=== PATIENT | male | born 1930 | race Caucasian/White ===

== ENCOUNTER 2016-09-18 23:17 | Inpatient (IN) | payer OTHER, MEDICARE ==
[~2016-09-18] VITALS: Ht 182.9 cm; Wt 107.9 kg
[~2016-09-18 23:17] MED LIST: AMLO5 PO; ASPI81 PO; CLOP75 PO; ENAL20TA PO; FERR324T4 PO; FURO1TAB93 PO; IMDU30TA PO; LANTINJ SQ; LEVO50TA4 PO; METO25 PO; SIMV20 PO; SODI325T PO; TAB-TAB PO; VITA20002 PO
[2016-09-18 23:18] VITALS: BP 142/79; PULSE 94; RESP 20; TEMP 97.8; O2SAT 90
[2016-09-18 23:41] VITALS: BP 141/71; PULSE 90; RESP 30; O2SAT 90
--- NOTE | 2016-09-18 23:51 | PD ---
HPI Chief Complaint: Respiratory Symptoms Time Seen by Provider: 23:51 Travel History International Travel<30 days: No Contact w/Intl Traveler<30days: No Traveled to known affect area: No History of Present Illness HPI 86-year-old male came to the emergency room with history of shortness of breath. His grandson brought him in. Patient was hypoxic in the triage. He has history of congestive heart failure, coronary artery disease, chronic kidney disease, single kidney. Patient says he's also been having chest pain. Symptoms have been going on for past 2 days. He was talking and able to answer questions appropriately. He did appear to be in moderate distress. [facility] Past Medical History Narrative Medical List of his past medical history reviewed from the nursing note. Hx Anticoagulant Therapy: Yes (PLAVIX) Arthritis: Yes Asthma: No Heart Rhythm Problems: No Cancer: Yes (RENAL) Cardiac Catheterization: Yes Cardiovascular Problems: Yes (5 VESSEL BYPASS, HTN) High Cholesterol: Yes Chemotherapy: No (TOOK KIDNEY OUT) Chest Pain: Yes Congestive Heart Failure: Yes COPD: No Cerebrovascular Accident: Yes Diabetes: Yes Gastrointestinal Disorders: Yes (KIDNEY REMOVED, ONLY ONE KIDNEY) GERD: No Genitourinary: No Headaches: No Hepatitis: No Hiatal Hernia: Yes Hypertension: Yes Kidney Stones: Yes Musculoskeletal: No Neurologic: No Reproductive: No Respiratory: No Migraines: No Myocardial Infarction: Yes Renal Failure: Yes Seizures: No Sleep Apnea: No Ulcer: No Past Surgical History Abdominal Surgery: No Appendectomy: No Cardiac Surgery: Yes Cholecystectomy: No Coronary Artery Bypass Graft: Yes (QUAD) Ear Surgery: No Endocrine Surgery: No Eye Surgery: Yes (BLIND RIGHT EYE) Genitourinary Surgery: Yes (LEFT NEPHRECTOMY) Gynecologic Surgery: No Oral Surgery: No Thoracic Surgery: No Other Surgery: Yes Social History Alcohol Use: No Tobacco Use: No Substance Use: No Allergies-Medications (Allergen,Severity, Reaction): Coded Allergies: No Known Allergies (Verified , 01/01/16) Comments No known drug allergies. Reported Meds & Prescriptions Reported Meds & Active Scripts Active Reported D3 2000 (Cholecalciferol) 2,000 Unit Tab Iron (Ferrous Sulfate) 325 Mg Tab 325 Mg PO DAILY Take Enalapril (Enalapril Maleate) 20 Mg Tab 20 Mg PO DAILY Furosemide 40 Mg Tab 40 Mg PO DAILY Isosorbide Mononitrate ER (Isosorbide Mononitrate) 30 Mg Linda 30 Mg PO DAILY Atorvastatin (Atorvastatin Calcium) 20 Mg Tab 20 Mg PO HS Aspirin 81 Mg Tabdr 81 Mg PO DAILY Metoprolol Tartrate 25 Mg Tab 25 Mg PO BID Amlodipine (Amlodipine Besylate) 5 Mg Tab 5 Mg PO DAILY Clopidogrel (Clopidogrel Bisulfate) 75 Mg Tab 75 Mg PO DAILY Levothyroxine (Levothyroxine Sodium) 50 Mcg Tab 50 Mcg PO DAILY Narrative Medication List of his home medications reviewed from the nursing note. Review of Systems Except as stated in HPI: all other systems reviewed are Neg Physical Exam Narrative GENERAL: Awake, alert, elderly, moderate respiratory distress SKIN: Warm and dry. Pale HEAD: Atraumatic. Normocephalic. EYES: Pupils round. No scleral icterus. No injection or drainage. Right by enucleated ENT: No nasal bleeding or discharge. Mucous membranes pink and moist. NECK: Trachea midline. No JVD. CARDIOVASCULAR: Regular rate and rhythm. No murmur appreciated. RESPIRATORY: Accessory muscles use for respirations, decreased air entry bibasilar with fine crackles GASTROINTESTINAL: Abdomen soft, non-tender, nondistended. Hepatic and splenic margins not palpable. MUSCULOSKELETAL: No obvious deformities. No clubbing. No cyanosis. No edema. NEUROLOGICAL: Awake and alert. No obvious cranial nerve deficits. Motor grossly within normal limits. Normal speech. PSYCHIATRIC: Appropriate mood and affect; insight and judgment normal. Data Data Last Documented VS Vital Signs Date Time Temp Pulse Resp B/P Pulse Ox O2 Delivery O2 Flow Rate FiO2 09/19/16 01:05 86 28 119/58 98 BiPAP 70 09/19/16 00:00 15.00 09/18/16 23:18 97.8 Orders Complete Blood Count With Diff (09/18/16 23:57) Basic Metabolic Panel (Bmp) (09/18/16 23:57) B-Type Natriuretic Peptide (09/18/16 23:57) Prothrombin Time / Inr (Pt) (09/18/16 23:57) Magnesium (Mg) (09/18/16 23:57) Ckmb (Isoenzyme) Profile (09/18/16 23:57) Troponin I (09/18/16 23:57) Urinalysis - C+S If Indicated (09/18/16 23:57) Iv Access Insert/Monitor (09/18/16 23:57) Ecg Monitoring (09/18/16 23:57) Oximetry (09/18/16 23:57) Oxygen Administration (09/18/16 23:57) Chest, Single Ap (09/18/16 23:57) Sodium Chloride 0.9% Flush (Ns Flush) (09/19/16 00:00) Furosemide Inj (Lasix Inj) (09/19/16 00:00) CKMB (09/19/16 00:05) CKMB% (09/19/16 00:05) Resp Bipap / Cpap Non Invas Vt (09/19/16 ) Arterial Blood Gas (Abg) (09/19/16 ) Admit Order (Ed Use Only) (09/19/16 01:05) Labs Laboratory Tests Test 09/19/16 09/19/16 09/19/16 00:05 00:45 01:01 White Blood Count 10.8 TH/MM3 Red Blood Count 4.09 MIL/MM3 Hemoglobin 12.2 GM/DL Hematocrit 36.8 % Mean Corpuscular Volume 89.8 FL Mean Corpuscular Hemoglobin 29.8 PG Mean Corpuscular Hemoglobin 33.1 % Concent Red Cell Distribution Width 14.6 % Platelet Count 159 TH/MM3 Mean Platelet Volume 9.3 FL Neutrophils (%) (Auto) 73.1 % Lymphocytes (%) (Auto) 14.7 % Monocytes (%) (Auto) 11.5 % Eosinophils (%) (Auto) 0.1 % Basophils (%) (Auto) 0.6 % Neutrophils # (Auto) 7.9 TH/MM3 Lymphocytes # (Auto) 1.6 TH/MM3 Monocytes # (Auto) 1.2 TH/MM3 Eosinophils # (Auto) 0.0 TH/MM3 Basophils # (Auto) 0.1 TH/MM3 CBC Comment DIFF FINAL Differential Comment Prothrombin Time 12.6 SEC Prothromb Time International 1.1 RATIO Ratio Sodium Level 139 MEQ/L Potassium Level 4.9 MEQ/L Chloride Level 108 MEQ/L Carbon Dioxide Level 14.9 MEQ/L Anion Gap 16 MEQ/L Blood Urea Nitrogen 50 MG/DL Creatinine 3.85 MG/DL Estimat Glomerular Filtration 15 ML/MIN Rate Random Glucose 219 MG/DL Calcium Level 8.5 MG/DL Phosphorus Level 2.9 MG/DL Magnesium Level 1.7 MG/DL Total Bilirubin 0.8 MG/DL Direct Bilirubin 0.2 MG/DL Indirect Bilirubin 0.6 MG/DL Aspartate Amino Transf 29 U/L (AST/SGOT) Alanine Aminotransferase 19 U/L (ALT/SGPT) Alkaline Phosphatase 97 U/L Total Creatine Kinase 221 U/L Creatine Kinase MB 8.9 NG/ML Troponin I 4.07 NG/ML B-Type Natriuretic Peptide 2218 PG/ML Total Protein 6.5 GM/DL Albumin 2.9 GM/DL Urine Color YELLOW Urine Turbidity CLEAR Urine pH 6.0 Urine Specific [place] 1.018 Urine Protein 300 mg/dL Urine Glucose (UA) 150 mg/dL Urine Ketones NEG mg/dL Urine Occult Blood MOD Urine Nitrite NEG Urine Bilirubin NEG Urine Urobilinogen LESS THAN 2.0 MG/DL Urine Leukocyte Esterase NEG Urine RBC 3 /hpf Urine WBC 1 /hpf Urine Squamous Epithelial <1 /hpf Cells Urine Mucus FEW /lpf Microscopic Urinalysis Comment CULT NOT INDICATED Blood Gas Puncture Site LT RADIAL Blood Gas Patient Temperature 98.6 Blood Gas HCO3 10 mmol/L Blood Gas Base Excess -16.0 mmol/L Blood Gas Oxygen Saturation 97 % Arterial Blood pH 7.23 Arterial Blood Partial 26 mmHg Pressure CO2 Arterial Blood Partial 189 mmHg Pressure O2 Arterial Blood Oxygen Content 16.1 Vol % Arterial Blood 0.6 % Carboxyhemoglobin Arterial Blood Methemoglobin 1.1 % Blood Gas Hemoglobin 11.6 G/DL Oxygen Delivery Device BiPAP Blood Gas Ventilator Setting 15/7 Blood Gas Inspired Oxygen 70 % [facility] Medical Decision Making Medical Screen Exam Complete: Yes Emergency Medical Condition: Yes Medical Record Reviewed: Yes Interpretation(s) Twelve-lead EKG was reviewed by me. Possible atrial fibrillation, left bundle branch block, left axis deviation, unchanged from 10/30/2012. Heart rate of 91 bpm. Differential Diagnosis Congestive heart failure, pleural effusion, pneumonia Narrative Course 1:36 AM patient initially was given 40 mg of IV Lasix for diuresis. Patient had to use a urinal and nurse was helping him when after urinating patient got acutely short of breath and oxygen saturation dropped to 86% on 6 L via nasal cannula. The nurse called me at this point. I switched him to nonrebreather and ordered BiPAP. After patient was on BiPAP immediately his oxygen saturation improved to 98% and he said he was able to breathe more comfortably. ABG that was done shortly after patient was put on BiPAP showed metabolic acidosis. His blood test results were reviewed which shows acute renal failure with renal acidosis. Patient's adaptive physical education teacher was called who is Dr. Taylor. I requested him to start an emergent dialysis on this patient. I spoke with the cnc service technician and admitted the patient to her. Dr. Mitchell from ICU is here to see the patient and has put a Vas-Cath as per Dr. Taylor request so that an emergent dialysis can be performed. He is putting the orders and calling the team in. Patient is tachycardic with his heart rate in 1 teens. Blood pressure is 111 systolic. I put a call out for his director sales support Dr. Rosado. Patient has been asked regarding CPR, intubation and he has agreed to all the procedures to sustain his life. He is a full code at this point. Dr. Taylor requested to give the patient 2 Amps of bicarbonate which has been ordered. 2:05 AM I discussed the case with Dr. Aggarwal who is covering for Dr. Rosado who is the patient's director sales support since the troponin came back significantly elevated . He wanted me to text the current and past EKG and called me back once he received it. He agreed that there was no significant change from his previous EKG. He agreed with the emergent dialysis. Patient currently is not a cardiac catheter candidate till the dialysis was started. Patient has refused cardiac catheterization in the past when he reviewed his office records. He will consult on the patient in the morning. He wanted to leave the decision regarding heparin for the adaptive physical education teacher. I have conveyed this to the cnc service technician. Critical Care Narrative Aggregate critical care time was 90 minutes. Time to perform other separately billable procedures was not included in the critical care time. My time did not include minutes spent treating any other patients simultaneously or on activities that did not directly contribute to the patient's treatment. The services I provided to this patient were to treat and/or prevent clinically significant deterioration that could result in: Severe respiratory distress, renal failure, metabolic acidosis, emergent dialysis, non-STEMI I provided critical care services requiring my management, as noted below: Chart data review, documentation time, medication orders and management, vital sign assessments/reviewing monitor data, ordering and reviewing lab tests, ordering and interpreting/reviewing x-rays and diagnostic studies, care of the patient and discussion of the patient with the admitting physicians. Procedures EKG Prior to Arrival: Yes Physician Communication Physician Communication Dr. Mitchell, Dr. Taylor Diagnosis Primary Impression: Respiratory distress Additional Impressions: Acute renal failure Qualified Code: N17.9 - Acute renal failure, unspecified acute renal failure type Metabolic acidosis Non-STEMI (non-ST elevated myocardial infarction) Admitting Information Admitting Physician Requests: Admit Bryan Alvarado MD Sep 18, 2016 23:51
[2016-09-18 23:52] VITALS: BP 131/73; PULSE 90; RESP 28; RESP 30; O2SAT 91
[2016-09-19] VITALS (21 sets, daily range): BP systolic 108–139; BP diastolic 55–92; PULSE 75–120; RESP 21–31; TEMP 98.6–101.4; O2SAT 86–99
[2016-09-19] MEDS ORDERED: FUROSEMIDE 40 MG/4 ML VIAL IVP ONE
[2016-09-19 00:26] LABS: AUTOMATED NEUTROPHIL # 7.9 TH/MM3 (1.8-7.7); BASOPHIL # 0.1 TH/MM3 (0-0.2); BASOPHIL % 0.6 % (0.0-2.0); EOSINOPHIL % 0.1 % (0.0-4.0); HEMATOCRIT 36.8 % (39.0-51.0); HEMO FLAGS DIFF FINAL; LYMPH % 14.7 % (9.0-44.0); LYMPHOCYTE # 1.6 TH/MM3 (1.0-4.8); MEAN CELL VOLUME 89.8 FL (80.0-100.0); MEAN CORPUSCULAR HEMOGLOBIN 29.8 PG (27.0-34.0); MEAN CORPUSCULAR HGB CONC 33.1 % (32.0-36.0); MONO % 11.5 % (0.0-8.0); NEUT % 73.1 % (16.0-70.0); PLATELET COUNT 159 TH/MM3 (150-450); RED BLOOD COUNT 4.09 MIL/MM3 (4.50-5.90); RED CELL DISTRIBUTION WIDTH 14.6 % (11.6-17.2); WHITE BLOOD COUNT 10.8 TH/MM3 (4.0-11.0)
[2016-09-19 00:42] LABS: ANION GAP 13 MEQ/L (5-15); BICARBONATE 17.4 MEQ/L (21.0-32.0); BLOOD UREA NITROGEN 47 MG/DL (7-18); CHLORIDE 106 MEQ/L (98-107); GLOMERULAR FILTRATION RATE 16 ML/MIN (>89); MAGNESIUM 1.7 MG/DL (1.5-2.5); POTASSIUM 4.7 MEQ/L (3.5-5.1); SODIUM (NA) 136 MEQ/L (136-145)
[2016-09-19 00:43] LABS: INTERNATIONAL NORMALIZED RATIO 1.1 RATIO; PROTHROMBIN TIME - PATIENT 12.6 SEC (9.8-11.6)
[2016-09-19 00:46] LABS: CREATINE KINASE 221 U/L (39-308)
--- NOTE | 2016-09-19 01:01 | RADRPT ---
EXAM DATE/TIME: 09/19/2016 00:21 [facility] COMPARISON: CHEST SINGLE AP, January 01, 2016, 17:51. INDICATIONS : Shortness of breath, chest pain. MEDICAL HISTORY : Diabetes mellitus type II. SURGICAL HISTORY : CABG. ENCOUNTER: Initial ACUITY: 1 day PAIN SCORE: 6/10 LOCATION: Bilateral chest FINDINGS: A single view of the chest demonstrates the lungs to be symmetrically aerated without evidence of inf iltrate or effusion. A nodular density projects over the right upper lobe. The heart is mildly enlar ged. Pulmonary vasculature remains normal. A nodular median sternotomy wires. CONCLUSION: 1. Cardiomegaly. 2. Faint nodular density right upper lobe. Suggest short term followup PA and lateral views of the ch est. Cristino Hardy Jr., MD on September 19, 2016 at 0:58 Board Certified Radiologist. This report was verified electronically.
[2016-09-19 01:06] LABS: BLOOD, URINE MOD (NEG); COMMENT (UR) CULT NOT INDICATED; CULTURE IF INDICATED CULT NOT INDICATED; GLUCOSE,URINE 150 mg/dL (NEG); KETONE, URINE NEG (NEG); MUCUS URINE FEW /lpf (OCC); NITRITE,URINE NEG (NEG); SQUAMOUS EPITHELIAL CELL URINE <1 /hpf (0-5); URINE COLOR YELLOW (YELLW/STRAW)
[2016-09-19 01:12] LABS: BLOOD GAS CARBOXYHEMOGLOBIN 0.6 % (0-4); BLOOD GAS HCO3 10 mmol/L (22-26); BLOOD GAS METHEMOGLOBIN 1.1 % (0-2); BLOOD GAS O2 HGB SATURATION 97 % (90-100); BLOOD GAS OXYGEN CONTENT 16.1 Vol % (12.0-20.0); BLOOD GAS PCO2 26 mmHg (38-42); BLOOD GAS PO2 189 mmHg (61-120); BLOOD GAS TOTAL HGB 11.6 G/DL (12.0-16.0); TEMP CORR TO 98.6
[2016-09-19 01:12] LABS: CKMB 8.9 NG/ML (0.5-3.6)
[2016-09-19 01:13] LABS: CRITICAL VALUE YES; DRAW SITE LT RADIAL; FIO2 70 %; NUMBER OF ARTERIAL PUNCTURES 1; OXYGEN DEVICE BiPAP; STAT YES; ULNAR PULSE PRESENT; VENT SETTINGS 15/7
[2016-09-19] MEDS ORDERED: LEVO50TA4 PO (01:38)
[2016-09-19] MEDS ORDERED: CLOP75TA PO (01:38)
[2016-09-19] MEDS ORDERED: ATOR20TA15 PO (01:39)
[2016-09-19] MEDS ORDERED: METO25TA3 PO (01:39)
[2016-09-19] MEDS ORDERED: ASPI1TAB69 PO (01:39)
[2016-09-19] MEDS ORDERED: AMLO5TAB2 PO (01:39)
[2016-09-19] MEDS ORDERED: ISOS30TA3 PO (01:40)
[2016-09-19] MEDS ORDERED: SODIUM BICARBONATE 8.4% INJ 50 MEQ/50 ML SYR IV PUSH ONE ×2 (01:45→03:00)
[2016-09-19] MEDS ORDERED: SODIUM BICARBONATE 8.4% INJ 50 ML ONE (01:45)
[2016-09-19] MEDS ORDERED: FERR1TAB36 PO (02:01)
[2016-09-19] MEDS ORDERED: FURO40TA PO (02:01)
[2016-09-19] MEDS ORDERED: ENAL20TA PO (02:01)
[2016-09-19] MEDS ORDERED: CHOL1TAB29 (02:02)
[2016-09-19] MEDS ORDERED: CHLORHEXIDINE GLUCONATE 2 % 1 PACK (2 CLOTHS) TOP PRN ×3 (02:30→08:15)
[2016-09-19] MEDS ORDERED: HEPARIN SODIUM - SQ 10,000 UNITS/ML VIAL SQ SCH (02:30)
[2016-09-19] MEDS ORDERED: SODIUM CHLORIDE 0.9% FLUSH 5 ML FLUSH IVF PRN ×3 (02:30→04:15)
[2016-09-19] MEDS ORDERED: MAGNESIUM HYDROXIDE SUSP 30 ML CUP PO PRN (02:30)
[2016-09-19] MEDS ORDERED: MISCELLANEOUS NURSING INFORMATION XX SCH ×3 (02:30→08:15)
[2016-09-19] MEDS ORDERED: BISACODYL 10 MG SUPP RECTAL PRN (02:30)
[2016-09-19] MEDS ORDERED: ACETAMINOPHEN 325 MG TAB PO PRN ×2 (02:30→04:15)
[2016-09-19] MEDS ORDERED: ONDANSETRON HCL 4 MG/2 ML VIAL IV PRN ×3 (02:30→08:15)
[2016-09-19] MEDS ORDERED: SODIUM CHLORIDE 0.9% FLUSH 5 ML FLUSH IV FLUSH PRN ×2 (02:30→08:15)
--- NOTE | 2016-09-19 02:46 | HHI.HP ---
[facility] Service Critical Care Medicine Primary Care Physician Ana Seth MD Admission Diagnosis congestive heart failure, respiratory distress, hypoxia, renal failu Diagnosis: Travel History International Travel<30 Days: No Contact w/Intl Traveler <30 Da: No Traveled to Known Affected Are: No History of Present Illness This is a 86-year-old gentleman that presented to the ED with complaints of dyspnea, accompanied by a family member was later identified as his grandson. Patient was hypoxic in the triage, he was placed on nonrebreather initially. The patient also complained of having angina for several days. Initial troponin was 4.07. The patient's past medical history is significant for CHF, CAD, chronic kidney disease, single kidney. An ABG was obtained noted metabolic acidosis, with a bicarbonate of 10. The patient was placed on BiPAP and given 40 mg of Lasix. He subsequently diureses less than 500 cc. Nephrology consult was initiated per Dr. Alvarado, to Dr. Taylor for emergent dialysis. 2 amps of sodium bicarbonate was given. Critical care medicine was consulted for management and treatment. I placed a right IJ Vas-Cath in the emergency department, patient is pending dialysis. [facility] Past Medical History Narrative Medical List of his past medical history reviewed from the nursing note. Hx Anticoagulant Therapy: Yes (PLAVIX) Arthritis: Yes Asthma: No Heart Rhythm Problems: No Cancer: Yes (RENAL) Cardiac Catheterization: Yes Cardiovascular Problems: Yes (5 VESSEL BYPASS, HTN) High Cholesterol: Yes Chemotherapy: No (TOOK KIDNEY OUT) Chest Pain: Yes Congestive Heart Failure: Yes COPD: No Cerebrovascular Accident: Yes Diabetes: Yes Gastrointestinal Disorders: Yes (KIDNEY REMOVED, ONLY ONE KIDNEY) GERD: No Genitourinary: No Headaches: No Hepatitis: No Hiatal Hernia: Yes Hypertension: Yes Kidney Stones: Yes Musculoskeletal: No Neurologic: No Reproductive: No Respiratory: No Migraines: No Myocardial Infarction: Yes Renal Failure: Yes Seizures: No Sleep Apnea: No Ulcer: No Past Surgical History Abdominal Surgery: No Appendectomy: No Cardiac Surgery: Yes Cholecystectomy: No Coronary Artery Bypass Graft: Yes (QUAD) Ear Surgery: No Endocrine Surgery: No Eye Surgery: Yes (BLIND RIGHT EYE) Genitourinary Surgery: Yes (LEFT NEPHRECTOMY) Gynecologic Surgery: No Oral Surgery: No Thoracic Surgery: No Other Surgery: Yes Social History Alcohol Use: No Tobacco Use: No Substance Use: No Allergies-Medications (Allergen,Severity, Reaction): Coded Allergies: No Known Allergies (Verified , 01/01/16) Comments No known drug allergies. Reported Meds & Prescriptions Reported Meds & Active Scripts Active Reported D3 2000 (Cholecalciferol) 2,000 Unit Tab Iron (Ferrous Sulfate) 325 Mg Tab 325 Mg PO DAILY Take Enalapril (Enalapril Maleate) 20 Mg Tab 20 Mg PO DAILY Furosemide 40 Mg Tab 40 Mg PO DAILY Isosorbide Mononitrate ER (Isosorbide Mononitrate) 30 Mg Linda 30 Mg PO DAILY Atorvastatin (Atorvastatin Calcium) 20 Mg Tab 20 Mg PO HS Aspirin 81 Mg Tabdr 81 Mg PO DAILY Metoprolol Tartrate 25 Mg Tab 25 Mg PO BID Amlodipine (Amlodipine Besylate) 5 Mg Tab 5 Mg PO DAILY Clopidogrel (Clopidogrel Bisulfate) 75 Mg Tab 75 Mg PO DAILY Levothyroxine (Levothyroxine Sodium) 50 Mcg Tab 50 Mcg PO DAILY Narrative Medication List of his home medications reviewed from the nursing note. Review of Systems Except as stated in HPI: all other systems reviewed are Neg Physical Exam Vital Signs Vital Signs Date Time Temp Pulse Resp B/P Pulse Ox O2 Delivery O2 Flow Rate FiO2 09/19/16 02:29 98.7 80 26 128/60 98 BiPAP 70 09/19/16 01:57 81 28 132/63 99 BiPAP 70 09/19/16 01:31 83 30 119/58 97 BiPAP 70 09/19/16 01:05 86 28 119/58 98 BiPAP 70 09/19/16 01:05 98 BiPAP 70 09/19/16 01:00 99 70 09/19/16 00:51 99 BiPAP 70 09/19/16 00:00 94 Non-Rebreather 15.00 09/18/16 23:52 91 Nasal Cannula 2 09/18/16 23:52 90 30 131/73 91 Nasal Cannula 3 09/18/16 23:41 90 30 141/71 90 09/18/16 23:18 97.8 94 20 142/79 90 Room Air Physical Exam GENERAL: Critically ill-appearing obese male sitting up in bed on BiPAP, in moderate distress. SKIN: Warm and dry. HEAD: Atraumatic. Normocephalic. EYES: Pupils equal and round. No scleral icterus. No injection or drainage. ENT: No nasal bleeding or discharge. Mucous membranes pink and moist. NECK: Trachea midline. No JVD noted. CARDIOVASCULAR: Normal rate, regular rhythm. RESPIRATORY: No accessory muscle use. Clear to auscultation. Breath sounds equal bilaterally. GASTROINTESTINAL: Abdomen soft, protuberant and non-tender, nondistended. No guarding. MUSCULOSKELETAL: Extremities without clubbing, cyanosis, noted 2+ pitting edema ankles. No obvious deformities. NEUROLOGICAL: Awake and alert. RASS 0. No gross focal/sensory deficits. Follows commands in all 4 extremities. Laboratory Laboratory Tests Test 09/19/16 09/19/16 09/19/16 00:05 00:45 01:01 White Blood Count 10.8 Red Blood Count 4.09 Hemoglobin 12.2 Hematocrit 36.8 Mean Corpuscular Volume 89.8 Mean Corpuscular Hemoglobin 29.8 Mean Corpuscular Hemoglobin 33.1 Concent Red Cell Distribution Width 14.6 Platelet Count 159 Mean Platelet Volume 9.3 Neutrophils (%) (Auto) 73.1 Lymphocytes (%) (Auto) 14.7 Monocytes (%) (Auto) 11.5 Eosinophils (%) (Auto) 0.1 Basophils (%) (Auto) 0.6 Neutrophils # (Auto) 7.9 Lymphocytes # (Auto) 1.6 Monocytes # (Auto) 1.2 Eosinophils # (Auto) 0.0 Basophils # (Auto) 0.1 CBC Comment DIFF FINAL Differential Comment Prothrombin Time 12.6 Prothromb Time International 1.1 Ratio Sodium Level 136 Potassium Level 4.7 Chloride Level 106 Carbon Dioxide Level 17.4 Anion Gap 13 Blood Urea Nitrogen 47 Creatinine 3.68 Estimat Glomerular Filtration 16 Rate Random Glucose 221 Calcium Level 8.3 Magnesium Level 1.7 Total Creatine Kinase 221 Creatine Kinase MB 8.9 Troponin I 4.07 B-Type Natriuretic Peptide 2218 Urine Color YELLOW Urine Turbidity CLEAR Urine pH 6.0 Urine Specific [place] 1.018 Urine Protein 300 Urine Glucose (UA) 150 Urine Ketones NEG Urine Occult Blood MOD Urine Nitrite NEG Urine Bilirubin NEG Urine Urobilinogen LESS THAN 2.0 Urine Leukocyte Esterase NEG Urine RBC 3 Urine WBC 1 Urine Squamous Epithelial <1 Cells Urine Mucus FEW Microscopic Urinalysis Comment CULT NOT INDICATED Blood Gas Puncture Site LT RADIAL Blood Gas Patient Temperature 98.6 Blood Gas HCO3 10 Blood Gas Base Excess -16.0 Blood Gas Oxygen Saturation 97 Arterial Blood pH 7.23 Arterial Blood Partial 26 Pressure CO2 Arterial Blood Partial 189 Pressure O2 Arterial Blood Oxygen Content 16.1 Arterial Blood 0.6 Carboxyhemoglobin Arterial Blood Methemoglobin 1.1 Blood Gas Hemoglobin 11.6 Oxygen Delivery Device BiPAP Blood Gas Ventilator Setting 15/7 Blood Gas Inspired Oxygen 70 Result Diagram: 09/19/16 0005 09/19/164 Septic Shock Reassessment Heart: Regular rate and rhythm Lungs: Clear Skin: Warm Peripheral Pulses: Bounding Right Radial Bounding Left Radial Bounding Right Dorsalis Pedis Bounding Left Dorsalis Pedis Capillary Refill: Brisk Assessment and Plan Assessment and Plan This is a 86-year-old gentleman well known to [facility], who presented with progressive dyspnea, in acute respiratory distress patient has multiple comorbidities and was recently discharged 12/29 for similar presentation. The patient is currently is in acute renal failure, secondary to cardiorenal syndrome requiring emergent dialysis. The patient desires intubation if it is required and cardiac interventions as needed. Plan by systems: Neurologic: Blindness left eye- retinal detachment -No acute issues Respiratory: Acute respiratory distress -Chest x-ray-woman a vascular congestion -Continue BiPAP, FIO2 .70 Cardiovascular: NSTEMI Angina Acute on chronic systolic congestive heart failure Cardiomegaly Previous CABG 2002 x 5 vessels NSTEMI 2009 CAD Moderate to severe mitral regurgitation Hypertension -Cardiology consult- Dr. Rosado -Continue monitoring serial troponins initial 4.09 -ECHO 01/02/16 EF 4045 percent grade 1 diastolic dysfunction. Diffuse hypokinesis. MV-moderate to severe regurgitation,TV-mild to moderate regurgitation.PASP 55mmHG -EKG SR, LBBB , unchanged per Dr. Aggarwal refractive surgeon data specialist as discussed with Dr. Alvarado, the patient is not a candidate for cardiac catheterization -Begin ASA, B-justice post emergent dialysis session -BNP 2218 Renal: Cardiorenal syndrome Acute on chronic renal failure S/P left nephrectomy-renal carcinoma -Creatinine 3.68 -Vas-Cath placement 09/19/15-emergent hemodialysis -- Strict I/Os FEN/GI: Metabolic acidosis -Serum Bicarbonate level-10, amps sodium bicarbonate given in ED -Repeat BMP postdialysis Heme/ID: -Monitor CBC hgb 12 Endocrine: Hypothyroidism Diabetes mellitus -Follow-up thyroid panel -Glucose monitoring every 6 hours per ICU protocol -- SSI Prophylaxis: GI Prophylaxis Protonix IV DVT Prophylaxis -- SCDs Heparin 5000 SQ BID Lines: Peripheral IVs 2 Dispo: my billing statement This patient remains critically ill with one or more organ systems which are or may become a threat to life. I have spent in excess of 59 minutes discontinuously in the care and management of this patient. This time is exclusive of procedures, and includes, but is not limited to, evaluation of the patient, review of the medical record, discussions with family, consultants, nursing staff, or respiratory therapy, and documentation in the medical record. Code Status Full Discussed Condition With The patient's grandson an ED nurse at bedside Zeinab Mitchell MD Sep 19, 2016 02:46
--- NOTE | 2016-09-19 02:53 | RADRPT ---
EXAM DATE/TIME: 09/19/2016 02:37 [facility] COMPARISON: CHEST SINGLE AP, September 19, 2016, 0:21. INDICATIONS : Central line placement. MEDICAL HISTORY : Diabetes mellitus type II. SURGICAL HISTORY : CABG. ENCOUNTER: Subsequent ACUITY: 1 day PAIN SCORE: 6/10 LOCATION: Bilateral chest FINDINGS: There has been placement of a right-sided central line. Tip is at the mid right atrium. No pneumothor ax. Questionable left lower lobe infiltrate. Right upper lobe nodular density not seen on the current study. Heart enlarged. CONCLUSION: 1. No pneumothorax following central line placement. 2. Suspected left lower lobe infiltrate. Cristino Hardy Jr., MD on September 19, 2016 at 2:50 Board Certified Radiologist. This report was verified electronically.
[2016-09-19 03:05] LABS: BICARBONATE 14.9 MEQ/L (21.0-32.0); POTASSIUM 4.9 MEQ/L (3.5-5.1)
[2016-09-19 03:08] LABS: INDIRECT BILIRUBIN 0.6 MG/DL (0.0-0.8); TOTAL BILIRUBIN ADULT 0.8 MG/DL (0.2-1.0)
[2016-09-19] MEDS: RESP: ALBUTEROL 2.5 MG/IPRATROPIUM 0.5 MG NEB (SCH) NEB ×4 (03:39→21:00)
[2016-09-19] MEDS ORDERED: CHLORHEXIDINE GLUCONATE 2 % 1 PACK (2 CLOTHS) TOP SCH ×2 (04:00)
[2016-09-19] MEDS ORDERED: NS 250 ML IV PRN (04:15)
[2016-09-19] MEDS ORDERED: GELATIN 12 MM/7 MM FOAM TOP PRN (04:15)
[2016-09-19] MEDS ORDERED: HEPARIN SODIUM - IV 10,000 UNITS/10 ML VIAL IV FLUSH PRN (04:15)
[2016-09-19] MEDS ORDERED: GENTAMICIN SULFATE (DIALYSIS USE ONLY) 20 MG/2 ML VIAL OTHER PRN (04:15)
[2016-09-19] MEDS ORDERED: MANNITOL 12.5 GM/50 ML VIAL IV PRN (04:15)
[2016-09-19] MEDS ORDERED: SODIUM CHLOR 0.9% 1000 ML IV PRN (04:15)
[2016-09-19] MEDS ORDERED: NITROGLYCERIN 0.4 MG SL 25 TABS/BTL SL PRN (04:15)
[2016-09-19] MEDS ORDERED: diphenhydrAMINE HCL 25 MG CAP PO PRN (04:15)
[2016-09-19] MEDS ORDERED: cloNIDine HCL 0.1 MG TAB PO PRN (04:15)
[2016-09-19] MEDS: SODIUM CHLOR 0.9% 1000 ML IV PRN (04:55)
[2016-09-19] MEDS: HEPARIN SODIUM - IV 10,000 UNITS/10 ML VIAL OTHER PRN (04:56)
[2016-09-19] MEDS: CHLORHEXIDINE 0.12% (ORAL KIT) 15 ML CUP MT SCH ×2 (08:00→20:00)
--- NOTE | 2016-09-19 08:11 | HHI.CCPN ---
Subjective Remarks/Hospital Course This is a 86-year-old gentleman that presented to the ED with complaints of dyspnea, accompanied by a family member was later identified as his grandson. Patient was hypoxic in the triage, he was placed on nonrebreather initially. The patient also complained of having angina for several days. Initial troponin was 4.07. The patient's past medical history is significant for CHF, CAD, chronic kidney disease, single kidney. An ABG was obtained noted metabolic acidosis, with a bicarbonate of 10. The patient was placed on BiPAP and given 40 mg of Lasix. He subsequently diureses less than 500 cc. Nephrology consult was initiated per Dr. Alvarado, to Dr. Taylor for emergent dialysis. 2 amps of sodium bicarbonate was given. Critical care medicine was consulted for management and treatment. I placed a right IJ Vas-Cath in the emergency department, patient is pending dialysis. Subjective 09/19: Patient currently resting on BiPAP for respiratory rates in the high teens status post hemodialysis. Complaining of discomfort from SCDs. Chest pain is improved. Complaining of having only one "banana" with the past 3 days. No bowel movement Objective Vital Signs Date Time Temp Pulse Resp B/P Pulse Ox O2 Delivery O2 Flow Rate FiO2 09/19/16 06:00 83 09/19/16 04:00 99.8 21 119/57 96 09/19/16 03:39 55 09/19/16 03:00 Bi-Pap 09/19/16 00:00 15.00 Result Diagram: 09/19/16 0005 09/19/16 0005 Other Results Laboratory Tests Test 09/19/16 01:01 Blood Gas Puncture Site LT RADIAL Blood Gas Patient Temperature 98.6 Blood Gas HCO3 10 mmol/L (22-26) Blood Gas Base Excess -16.0 mmol/L (-2-2) Blood Gas Oxygen Saturation 97 % (90-100) Arterial Blood pH 7.23 (7.380-7.420) Arterial Blood Partial 26 mmHg (38-42) Pressure CO2 Arterial Blood Partial 189 mmHg Pressure O2 (61-120) Arterial Blood Oxygen Content 16.1 Vol % (12.0-20.0) Arterial Blood 0.6 % (0-4) Carboxyhemoglobin Arterial Blood Methemoglobin 1.1 % (0-2) Blood Gas Hemoglobin 11.6 G/DL (12.0-16.0) Oxygen Delivery Device BiPAP Blood Gas Ventilator Setting 15/7 Blood Gas Inspired Oxygen 70 % Objective Remarks GENERAL: 86-year-old critically ill-appearing obese male, appears stated age resting in bed on BiPAP, in no acute distress. SKIN: Warm and dry. No rash HEAD: Atraumatic. Normocephalic. EYES: Status post cataract changes. No scleral icterus. No injection or drainage. ENT: No nasal bleeding or discharge. Mucous membranes pink and moist. NECK: Trachea midline. No JVD noted. CARDIOVASCULAR: Irregular. Tachycardia. S1, S2. No S4. 2/6 murmur apex RESPIRATORY: Few crackles appreciated in the left lower lobe. No wheezing appreciated GASTROINTESTINAL: Abdomen soft, protuberant and non-tender,. Hypoactive bowel sounds MUSCULOSKELETAL: Extremities with 1+ pitting edema below the knees bilaterally. NEUROLOGICAL: Awake and alert. Oriented person place and time. Nonfocal examination. Moving all 4 extremities spontaneously. Vascular Central Line Catheter: Yes Assessment to: Continue Date of Insertion: Sep 19, 2016 Side: Right Location: Internal, Jugular A/P Assessment and Plan Neurologic/Psych: Blindness left eye- retinal detachment -No acute issues Acetaminophen for fever [place]/as needed morphine for pain management Respiratory: Acute respiratory failure secondary to pneumonia/acute diastolic heart failure -Currently on BiPAP 15/5@40% FiO2. We'll attempt to wean to nasal cannula today -Incentive spirometry while awake -Bronchodilator therapy as needed -Follow-up chest x-ray in a.m. -See infectious disease for antibiotics Cardiovascular: NSTEMI Angina/unstable Acute on chronic systolic and diastolic congestive heart failure Cardiomegaly Previous CABG vessels with Dr. Perrin History NSTEMI 2008 - refused cardiac catheterization CAD Moderate to severe mitral regurgitation/moderate TR Hypertension Left bundle branch block Atrial fibrillation -Cardiology consult- Dr. Rosado. No indications for cardiac catheterization at this time per report -Continue monitoring serial troponins initial 4.09. Repeat at 0800 hrs. pending -ECHO 01/02/16 EF 4045 percent grade 1 diastolic dysfunction. Diffuse hypokinesis. MV-moderate to severe regurgitation,TV-mild to moderate regurgitation.PASP 55mmHG Repeat echo pending -EKG SR, LBBB , unchanged per Dr. 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 Alvarado, the patient is not a candidate for cardiac catheterization -Currently in atrial fibrillation. Will likely need anticoagulation -Begin ASA 81 mg daily, Plavix 75 mg daily and, B-justice with Lopressor 2.5 milligrams IV every 6 hours post emergent dialysis session -BNP 2218 - Resume atorvastatin 20 mg daily for dyslipidemia. Lipid panel. LFTs within normal limits. - Patient is on enalapril 20 mg daily. This is held in light of acute kidney injury. - Converting metoprolol 25 mg twice a day IV. See above. Currently Norvasc 5 mg per day light of hypotension. - Currently holding Lasix 40 mg by mouth daily. Currently hemodialysis. 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 Baseline creatinine around 2.6. -Vas-Cath placement 09/19/15-emergent hemodialysis is been completed. -2 L - Nephrology consulted - Avoid nephrotoxic drugs. Specifically sp inhibitors have been held -- Strict I/Os - Follow BMP in a.m. - We'll check urine electrolytes/eosinophils and renal ultrasound FEN Replace electrolytes as clinically indicated. GI: Patient is currently nothing by mouth Protonix for GI prophylaxis Colace/as needed Senokot for bowel regimen History of bladder cancer 3 Goodwin for accurate I's and O's in a critically ill patient. Heme: Normocytic anemia Patient is on iron sulfate 325 mg by mouth daily. This is been resumed. Follow-up CBC in AM. ID: Possible community-acquired pneumonia Day 1 Zosyn/Zithromax Pertinent cultures 09/19 - blood cultures 2 - pending 09/19 - urine culture - pending 09/19 - sputum - pending Influenza pending Endocrine: Hypothyroidism Diabetes mellitus -Follow-up thyroid panel - Currently on Levoxyl 50 mg by mouth daily. -Glucose monitoring every 6 hours per ICU protocol -- SSI - Follow-up hemoglobin A1c. MSK: Osteoarthritis/osteoporosis Continue vitamin D 3 1000 units by mouth daily. PT evaluate and treat Access - Right IJ hemodialysis catheter day #1 Prophylaxis: GI - Protonix DVT - SCD/heparin subcutaneous Critical Care: The total additional critical care time was 35 minutes. Time to perform other separately billable procedures was not included in the critical care time. Denny Medellin MD 5, 2017 08:11
[2016-09-19] MEDS ORDERED: MORPHINE SULFATE 4 MG/ML INJ IV PRN (08:15)
[2016-09-19] MEDS ORDERED: ACETAMINOPHEN/HYDROcodone 325 MG/5 MG TAB PO PRN (08:15)
[2016-09-19] MEDS ORDERED: RESP: ALBUTEROL 2.5 MG/IPRATROPIUM 0.5 MG NEB (PRN) INH (08:15)
[2016-09-19] MEDS ORDERED: SENNOSIDES 8.6 MG TAB PO PRN (08:15)
[2016-09-19] MEDS ORDERED: PIPERACIL-TAZO 2.25 GM PREMIX 50 ML IV SCH (08:30)
[2016-09-19] MEDS: AZITHROMYCIN INJ 500 MG in SODIUM CHLOR 0.9% 250 ML INJ 250 ML IV SCH (08:38)
[2016-09-19] MEDS: DOCUSATE SODIUM 100 MG CAP PO SCH ×2 (08:38→21:35)
[2016-09-19] MEDS: PANTOPRAZOLE SODIUM 40 MG VIAL IV SCH (08:38)
[2016-09-19] MEDS: ARTIFICIAL TEARS OPTH SOLN 15 ML BTL EACH EYE SCH ×3 (09:00→17:08)
[2016-09-19] MEDS ORDERED: SODIUM CHLORIDE 0.9% FLUSH 5 ML FLUSH IV FLUSH SCH (09:00)
[2016-09-19] MEDS ORDERED: SODIUM CHLORIDE 0.9% FLUSH 5 ML FLUSH IVF SCH (09:00)
[2016-09-19 09:15] LABS: HEMATOCRIT 35.1 % (39.0-51.0); MEAN CELL VOLUME 89.1 FL (80.0-100.0); MEAN CORPUSCULAR HEMOGLOBIN 29.4 PG (27.0-34.0); PLATELET COUNT 142 TH/MM3 (150-450); RED BLOOD COUNT 3.94 MIL/MM3 (4.50-5.90); RED CELL DISTRIBUTION WIDTH 14.5 % (11.6-17.2); REVIEW FLAG FINAL; WHITE BLOOD COUNT 13.6 TH/MM3 (4.0-11.0)
[2016-09-19] MEDS: FERROUS SULFATE 325 MG (65 MG ELEMENTAL IRON) TAB PO SCH (09:23)
[2016-09-19] MEDS: CHOLECALCIFEROL (VIT D3) 1000 UNIT TAB PO SCH (09:23)
[2016-09-19] MEDS: ASCORBIC ACID 500 MG TAB PO SCH (09:23)
[2016-09-19] MEDS: CLOPIDOGREL 75 MG TAB PO SCH (09:23)
[2016-09-19] MEDS: ASPIRIN 81 MG CHEW TAB CHEW SCH (09:23)
[2016-09-19] MEDS: SODIUM CHLORIDE 0.9% FLUSH 5 ML FLUSH IV FLUSH SCH ×2 (09:24→21:35)
[2016-09-19] MEDS: METOPROLOL TARTRATE 5 MG/5 ML VIAL IV PUSH SCH ×3 (09:24→21:35)
[2016-09-19] MEDS: PIPERACIL-TAZO 2.25 GM PREMIX 50 ML IV SCH ×2 (09:25→17:08)
[2016-09-19] MEDS: ISOSORBIDE DINITRATE 10 MG TAB PO SCH ×3 (09:35→21:36)
[2016-09-19 10:00] LABS: CKMB 20.4 NG/ML (0.5-3.6)
[2016-09-19 10:18] LABS: APTT (PATIENT) 38.7 SEC (24.3-30.1); INTERNATIONAL NORMALIZED RATIO 1.5 RATIO; PROTHROMBIN TIME - PATIENT 17.1 SEC (9.8-11.6)
[2016-09-19] MEDS: HEPARIN-D5W INJ 250 ML IV SCH (10:34)
--- NOTE | 2016-09-19 10:38 | EKG ---
Date Performed: 09/19/2016 Time Performed: 09:47:03 PTAGE: 86 years EKG: Baseline artifact is seen both on this electrocardiogram and the prior electrocardiogram. It appears like this may be atrial fibrillation but there is at least one complex where a P-wave is s een and this could represent Sinus rhythm with premature atrial contractions. MARKED LEFT AXIS DEVIATION LEFT BUNDLE BRANCH BLOCK ABNORMAL ECG Overall I see no definite change although it is difficult to compare rhythm. PREVIOUS TRACING : 09/18/2016 23.48 DOCTOR: Osei Rosado Interpretating Date/Time 09/19/2016 10:37:07
--- NOTE | 2016-09-19 11:41 | EKG ---
Date Performed: 09/18/2016 Time Performed: 23:48:10 PTAGE: 86 years EKG: UNCERTAIN REGULAR RHYTHM MARKED LEFT AXIS DEVIATION LEFT BUNDLE BRANCH BLOCK ABNORMAL ECG C OMPARED TO PRIOR ELECTROCARDIOGRAM, Present rhythm is uncertain due to artifact. PREVIOUS TRACING : 01/02/2016 05.48 DOCTOR: Osei Rosado Interpretating Date/Time 09/19/2016 11:39:55
--- NOTE | 2016-09-19 12:37 | MB ---
cc: MIREYA MELLO MD DATE OF CONSULTATION 09/19/2016 REASON FOR CONSULTATION Chronic kidney disease, advanced renal failure and metabolic acidosis. HISTORY OF PRESENT ILLNESS This is an 86-year-old male known to me from before with a past medical history of stage IV chronic kidney disease, history of ischemic heart disease, congestive heart failure, history of nephrectomy with single kidney, and hypertension who came to the hospital with complaint of chest pain and worsening shortness of breath. I was called to see the patient because of worsening renal function and metabolic acidosis requiring dialysis. The patient has been following with me in the office and the last time he was seen by me was last month on August 19 and at that time his creatinine was 3.0 and the GFR was 18 and I decrease the Lasix 20 mg once a day. He was told to take 40 mg alternating with 20 mg if he sees more swelling in the legs or has more worsening shortness of breath. He has been following with Dr. Rosado and has been on Plavix and aspirin. The patient has had left nephrectomy done in 2008 because of renal cell carcinoma. He also has a history of diabetes mellitus. According to the patient for the last four or five days, he has had gradual worsening of shortness of breath associated with chest pain which was mainly retrosternal and recurrent. When he came here, it was found that his troponin was elevated and he was seen by cardiology. He was also found to have low grade fever. His breathing was much worse and after dialysis, he improved. He was on BiPap and now he is on nasal cannula. He is feeling much better. The dialysis was done early this morning. PAST MEDICAL HISTORY 1. Hypertension 2. Ischemic heart disease 3. Congestive heart failure 4. Chronic kidney disease with stage IV 5. History of renal cell carcinoma 6. Diabetes mellitus 7. Chronic anemia PAST SURGICAL HISTORY 1. History of left nephrectomy done in 2008 2. Coronary artery bypass grafting 3. He has blindness in the right side with an artificial eye. REVIEW OF SYSTEMS The patient has generalized weakness, feeling tired and he has gradual worsening of shortness of breath going on for the last three to four days. He also has retrosternal chest pain which has been going off and on. He denies any nausea or vomiting. No history of diarrhea. No dysuria, hematuria or difficulty passing urine. He did not notice any decrease in the urine output. SOCIAL HISTORY The patient lives with his daughter. He has a history of smoking and stopped a long time ago. There is no history of heavy alcoholism. FAMILY HISTORY Noncontributory ALLERGIES He has NO KNOWN DRUG ALLERGIES. MEDICATIONS Currently he is on: 1. Colace 100 mg b.i.d. 2. Protonix 40 mg IV daily 3. Aspirin 81 mg daily 4. Plavix 75 mg daily 5. Ferrous sulfate 325 mg daily 6. Vitamin C 500 mg once a day 7. Vitamin D3 1000 units once a day 8. Lipitor 20 mg q.h.s. 9. Synthroid 50,000,000 mcg daily 10. DuoNeb nebulizer 11. Heparin 5000 units subcu [id number] 12. Azithromycin 500 mg IV q24h 13. Zosyn 2.25 grams IV q8h 14. Metoprolol 2.5 mg IV q6-hour as needed 15. Heparin IV infusion 16. Zofran as needed 17. Morphine as needed PHYSICAL EXAM On examination, the patient is awake and alert. He is now with nasal cannula not in acute distress. VITAL SIGNS: His last blood pressure was 109/55 temperature is 100.5. HEAD, EYES, EARS, NOSE, AND THROAT: The right eye is artificial. The left conjunctiva is pale. NECK: Supple. JVD is slightly elevated. LUNGS: The patient has bilateral decreased air entry with basilar rales and scattered wheezing. HEART: S1 and S2 regular rhythm with a systolic murmur. ABDOMEN: Soft and lax. There is no tenderness. Bowel sounds positive. EXTREMITIES: He has 1+ edema in the legs. INVESTIGATIONS WBC count is 13.6, hemoglobin 11.6, platelet count 142. Sodium 139, potassium 4.9, chloride 108, bicarb 14.9, BUN 50, creatinine 3.85, glucose 219, trop-I is 15.8, creatinine kinase 461, lactic acid is 2.8, INR is 1.5. Urinalysis is showing he has no eosinophils. Urine sodium is 36, proteinuria of 300. Blood cultures are pending. IMAGING STUDIES The patient has chest x-ray done which shows suspected left lower lobe infiltrate. ASSESSMENT/PLAN 1. Non-ST elevation acute UT. 2. Pneumonia and fever 3. Chronic kidney disease with advanced renal failure 4. Metabolic acidosis 5. Moderate to severe mitral regurgitation 6. History of ischemic heart disease and congestive heart failure 7. Diabetes mellitus The patient has hemodialysis started early this morning mainly for the acidosis. The patient has been nonoliguric. He has a Goodwin catheter now. He has a baseline GFR of 18 and the creatinine was 3.0. He has a single kidney. Now his GFR went down to 15 before they started dialysis. There may be some acute element. We will follow the urine output and BUN and creatinine and decide about further dialysis. Continue antibiotic. Further recommendation as per cardiology. Thank you for the consultation and I will follow the patient while he is in the hospital. MD LEA Dow/OTTONIEL /12:07 PM /12:22 PM
--- NOTE | 2016-09-19 13:37 | RADRPT ---
EXAM DATE/TIME: 09/19/2016 12:08 [facility] COMPARISON: No previous studies available for comparison. EXTERNAL COMPARISON : [facility], CT Abdomen, 09/05/08. [facility], CT Abdomen, 08/26/2008. INDICATIONS : Increased BUN/Creatinine. MEDICAL HISTORY : Myocardial infarction. Blindness in right eye. Congestive heart failure. Hiatal hernia. Renal king [place]. Diabetes. Renal cancer. Chemotherapy. SURGICAL HISTORY : CABG. Cardiac catheterization. Left nephrectomy. ENCOUNTER: Subsequent ACUITY: 1 day PAIN SCORE: 0/10 LOCATION: Bilateral flank MEASUREMENTS: RIGHT KIDNEY: 11.2 x 5.6 x 5.9 cm LEFT KIDNEY: Surgically removed. FINDINGS: RIGHT KIDNEY: Renal cortex is normal in thickness and increased echotexture. No hydronephrosis, stone, or mass. LEFT KIDNEY: Surgically absent. BLADDER: Decompressed by Goodwin catheter. CONCLUSION: 1. Left nephrectomy. 2. Right kidney slightly echogenic which can be seen with medical renal disease. Shahbaz Noriega MD on September 19, 2016 at 13:35 Board Certified Radiologist. This report was verified electronically.
--- NOTE | 2016-09-19 16:04 | MB ---
cc: FREDIS LYNN DATE OF CONSULTATION: 09/19/2016. REASON FOR CONSULTATION: Heart failure. HISTORY OF PRESENT ILLNESS: 86-year-old male with past medical history significant for coronary artery disease status post CABG in 2001, hypertension, severe mitral regurgitation, chronic kidney disease with one kidney and mildly depressed left ventricular systolic function who presented to the emergency department with worsening shortness of breath, dyspnea on exertion and leg edema. He reports that for the past couple of days he has been having shortness of breath with minimal exertion and orthopnea. He denies chest pain, palpitations or paroxysmal nocturnal dyspnea. He has been admitted to the intensive care unit. He dialyzed yesterday. Currently he reports feeling better. Also he was found to febrile with lung infiltrates on x-ray, started on IV antibiotics for a presumed community acquired pneumonia. Blood work shows elevated troponin of 4 for which cardiology has been consulted for further management and evaluation. Of note, the patient was here back in December of last year with a similar complaint. At that time, he refused left heart catheterization as well as CT surgery evaluation for the mitral regurgitation. He reports that the reason for declining those therapies was his worsening renal function. REVIEW OF SYSTEMS: Negative except for that mentioned in the history of present illness. PAST MEDICAL HISTORY: 1. Hypertension. 2. Hyperlipidemia. 3. Chronic kidney disease started on dialysis yesterday. 4. Atrial fibrillation. 5. Coronary artery disease status post CABG x4 in 2001. 6. Pulmonary hypertension. 7. Moderate to severe mitral regurgitation. HOME MEDICATIONS: Reviewed. SOCIAL HISTORY: He denies smoking, illicit drug use or alcohol use. FAMILY HISTORY: Noncontributory. REVIEW OF SYSTEMS: Negative except for that mentioned in the history of present illness. PHYSICAL EXAMINATION: VITAL SIGNS: Heart rate of 100, respiratory rate of 20, blood pressure 110/80. GENERAL: He is awake, alert and oriented times three. He is very hard of hearing. He is in bed. Daughter at bedside. NECK: The patient has no jugular venous distention. cordis right internal jugular. No carotid bruits. HEART: Irregularly irregular with no murmurs, rubs or gallops appreciated. LUNGS: Bilateral basilar rales. Poor inspiratory effort. No crackles. No wheezing. ABDOMEN: The abdomen is soft, nontender and nondistended with positive bowel sounds. EXTREMITIES: There is no cyanosis or edema. Pulses throughout. LABORATORY DATA: White count of 13.6, hemoglobin of 11, hematocrit of 35, platelet count of 142, 000. INR 1.5. Chemistries: Sodium 139, potassium 4.1, BUN 50, creatinine of 3.85. Troponin of 4.07 and 15.8. BNP of 2218. Blood cultures are pending. EKGS: EKG shows atrial fibrillation with adequate ventricular response and a left bundle branch block, nonspecific S-T changes. IMAGING STUDIES: Chest x-ray shows a left lower lobe infiltrate. ASSESSMENT: An 86-year-old male with the above history and findings admitted with a shortness of breath, dyspnea on exertion, CAP and heart failure now with elevated troponin's coming from 4 to 15 suggesting a [id number] IL. Currently he remains with a low grade fever but hemodynamically stable. He has refused valve intervention and LHC in the past and today remains undecided on to weather have an invasive work up or not. In addition he has worsening renal function needing emergent HD. There is no mention if HD is permanent or not. Thus I do not believe he is a cardiac catheterization candidate at this time. Thus, continue medical management non-S-T elevation myocardial infarction with aspirin, Plavix, beta-blockers, CESILIA inhibitors, statins, heparin drip and repeat an echocardiogram to assess left ventricular systolic function. The case has been discussed with the sample stitcher as well as with the patient's daughter. Thank you for the opportunity to take part in the care of this patient. Will follow with you. Further therapy is to be determined. MD STELLA Seo/JCC /2:26 PM /3:48 PM TOBY
[2016-09-19] MEDS ORDERED: METOPROLOL TARTRATE 5 MG/5 ML VIAL IV PUSH ONE (16:30)
[2016-09-19] MEDS ORDERED: METOPROLOL TARTRATE 5 MG/5 ML VIAL ONE (16:32)
[2016-09-19 17:09] LABS: APTT (PATIENT) 52.6 SEC (24.3-30.1)
[2016-09-19 17:15] LABS: ANION GAP 11 MEQ/L (5-15); BICARBONATE 23.8 MEQ/L (21.0-32.0); BLOOD UREA NITROGEN 46 MG/DL (7-18); CHLORIDE 105 MEQ/L (98-107); GLOMERULAR FILTRATION RATE 15 ML/MIN (>89); MAGNESIUM 1.7 MG/DL (1.5-2.5); POTASSIUM 4.2 MEQ/L (3.5-5.1); SODIUM (NA) 140 MEQ/L (136-145)
[2016-09-19 17:24] LABS: CREATINE KINASE 552 U/L (39-308)
--- NOTE | 2016-09-19 17:37 | EC ---
Study Study Date:09/19/2016 STUDY CONCLUSIONS SUMMARY - Left ventricle: The cavity size was normal. Wall thickness was normal. Systolic function was moderately to severely reduced. The estimated ejection fraction was in the range of 30% to 35%. Diffuse hypokinesis. - Mitral valve: Severe regurgitation. - Pulmonary arteries: PA peak pressure: 50mm Hg (S). If LV function is below 40, please consider prescribing an ACEI or ARB or document rationale for non-use. PROCEDURE DATA STUDY STATUS: Elective. Procedure: Transthoracic echocardiography. Image quality was good. Scanning was performed from the parasternal, apical, and subcostal acoustic windows. Study completion: The patient tolerated the procedure well. Transthoracic echocardiography. M-mode, complete 2D, complete spectral Doppler, and color Doppler. Patient status: Inpatient. CARDIAC ANATOMY LEFT VENTRICLE: The cavity size was normal. Wall thickness was normal. Systolic function was moderately to severely reduced. The estimated ejection fraction was in the range of 30% to 35%. Diffuse hypokinesis. AORTIC VALVE: Trileaflet; normal thickness leaflets. Doppler: Transvalvular velocity was within the normal range. There was no stenosis. No regurgitation. AORTA: Aortic root: The aortic root was normal in size. MITRAL VALVE: Structurally normal valve. Doppler: Transvalvular velocity was within the normal range. There was no evidence for stenosis. Severe regurgitation. Mean gradient: 2mm Hg (D). Peak gradient: 7mm Hg (D). LEFT ATRIUM: The atrium was normal in size. RIGHT VENTRICLE: The cavity size was normal. Wall thickness was normal. PULMONIC VALVE: Doppler: Transvalvular velocity was within the normal range. There was no evidence for stenosis. No regurgitation. TRICUSPID VALVE: Structurally normal valve. Doppler: Transvalvular velocity was within the normal range. No regurgitation. PULMONARY ARTERY: The main pulmonary artery was normal-sized. Systolic pressure was within the normal range. RIGHT ATRIUM: The atrium was normal in size. PERICARDIUM: There was no pericardial effusion. SYSTEMIC VEINS: Inferior vena cava: The vessel was normal in size. BASIC MEASUREMENTS ADULT Normal Left ventricle LV internal dimension, ED, chordal level, 51.1 mm 43-52 PLAX LV posterior wall thickness, ED 7.95 mm IVS/LVPW ratio, ED *1.57 <1.3 Ventricular septum Septal thickness, ED 12.5 mm Left atrium Anterior-posterior dimension 39 mm Right ventricle RV internal dimension, ED, PLAX 20.5 mm 19-38 DOPPLER MEASUREMENTS ADULT Normal Main pulmonary artery Pressure, S *50 mm Hg =30 Aortic valve VTI, S 31.5 cm Mitral valve Peak E-wave velocity 124 cm/s Mean velocity, D 63.6 cm/s Mean gradient, D 2 mm Hg Peak gradient, D 7 mm Hg Maximal regurgitant velocity 478 cm/s Tricuspid valve Regurgitant peak velocity 209 cm/s Peak RV-RA gradient, S 17 mm Hg Maximal regurgitant velocity 209 cm/s Systemic veins Estimated CVP 10 mm Hg Right ventricle RV pressure, S *50 mm Hg <30 LEGEND: Mean values are shown as u=mean value. Asterisk (*) bowling values outside specified normal range. Prepared and signed by Josh Willoughby [id number]
[2016-09-19] MEDS ORDERED: MAGNESIUM SULFATE 1 GM PREMIX 100 ML ONE (17:42)
[2016-09-19] MEDS: MAGNESIUM SULFATE 1 GM PREMIX 100 ML IV SCH ×2 (17:45→18:35)
[2016-09-19 18:35] LABS: HEMOGLOBIN A1a 1.2 %; HEMOGLOBIN A1b 1.3 %; HEMOGLOBIN Ao 79.1 %; HEMOGLOBIN F 1.4 %; HEMOGLOBIN LA1C 3.5 %; HEMOGLOBIN P3 7.5 %
--- NOTE | 2016-09-19 19:04 | PD.PROCEDR ---
Central Line Procedure REASON FOR PROCEDURE Central venous access PROCEDURE PERFORMED Central line placement: RIJ Vascath CONSENT Informed consent for procedure was obtained [ ]. The risks and benefits of the procedure were discussed to include but limited to bleeding, clot formation, infection, and even . ANESTHESIA Local injection of 1% Lidocaine DESCRIPTION OF THE PROCEDURE The patient was placed in supine, mild Trendelenburg position. The area was exposed and cleansed with ChloraPrep, times two. Large sterile drape was used to cover the patient, with the site exposed, under sterile conditions including cap, face mask, sterile gown, and sterile gloves. On single attempt, the introducer needle was inserted with negative pressure in syringe and venous flash was obtained. The guide wire was then advanced without any restriction and the needle was removed. The dilator was used without any complications. Using Seldinger technique the vascatheter was advanced over the guide wire to a depth of 18 centimeters. The guide wire was removed. All ports were aspirated with dark venous blood return and flushed easily with sterile saline. All ports were capped. Antibiotic disc was placed around central line at puncture site. The central line was secured to the skin with two interrupted 2.0 silk sutures. The area was bandaged with sterile see-through central line bandage. RADIOLOGICAL DATA Ultrasound guidance was used to locate RIJ. Doppler/color flow was used to confirm venous flow. COMPLICATIONS: No apparent complications ESTIMATED BLOOD LOSS: Less than 1 cc. Zeinab Mitchell MD Sep 19, 2016 19:04
[2016-09-19] MEDS: ATORVASTATIN 20 MG TAB PO SCH (21:36)
[2016-09-20] VITALS (15 sets, daily range): BP systolic 106–124; BP diastolic 57–70; PULSE 96–125; RESP 16–26; TEMP 98–100.8; O2SAT 93–100
[2016-09-20] MEDS: METOPROLOL TARTRATE 5 MG/5 ML VIAL IV PUSH SCH ×6 (00:28→20:49)
[2016-09-20 00:52] LABS: APTT (PATIENT) 75.9 SEC (24.3-30.1)
[2016-09-20] MEDS: PIPERACIL-TAZO 2.25 GM PREMIX 50 ML IV SCH ×3 (02:08→16:47)
[2016-09-20] MEDS: RESP: ALBUTEROL 2.5 MG/IPRATROPIUM 0.5 MG NEB (SCH) NEB ×4 (03:54→20:19)
[2016-09-20 04:11] LABS: AUTOMATED NEUTROPHIL # 9.4 TH/MM3 (1.8-7.7); BASOPHIL # 0.1 TH/MM3 (0-0.2); BASOPHIL % 0.6 % (0.0-2.0); EOSINOPHIL % 0.1 % (0.0-4.0); HEMATOCRIT 35.6 % (39.0-51.0); HEMO FLAGS DIFF FINAL; LYMPH % 8.3 % (9.0-44.0); MEAN CELL VOLUME 89.3 FL (80.0-100.0); MEAN CORPUSCULAR HEMOGLOBIN 29.7 PG (27.0-34.0); MEAN CORPUSCULAR HGB CONC 33.2 % (32.0-36.0); MONO % 9.7 % (0.0-8.0); NEUT % 81.3 % (16.0-70.0); PLATELET COUNT 112 TH/MM3 (150-450); RED BLOOD COUNT 3.98 MIL/MM3 (4.50-5.90); RED CELL DISTRIBUTION WIDTH 14.5 % (11.6-17.2); WHITE BLOOD COUNT 11.6 TH/MM3 (4.0-11.0)
[2016-09-20 04:46] LABS: ALKALINE PHOSPHATASE 76 U/L (45-117); ALT (GPT) 20 U/L (12-78); ANION GAP 13 MEQ/L (5-15); AST (GOT) 60 U/L (15-37); BICARBONATE 21.5 MEQ/L (21.0-32.0); BLOOD UREA NITROGEN 52 MG/DL (7-18); CHLORIDE 103 MEQ/L (98-107); GLOMERULAR FILTRATION RATE 14 ML/MIN (>89); MAGNESIUM 2.2 MG/DL (1.5-2.5); POTASSIUM 3.8 MEQ/L (3.5-5.1); SODIUM (NA) 137 MEQ/L (136-145); TOTAL BILIRUBIN ADULT 0.9 MG/DL (0.2-1.0)
[2016-09-20] MEDS: CHLORHEXIDINE GLUCONATE 2 % 1 PACK (2 CLOTHS) TOP SCH (04:56)
[2016-09-20] MEDS: LEVOTHYROXINE SODIUM 50 MCG TAB PO SCH (05:28)
[2016-09-20] MEDS: ISOSORBIDE DINITRATE 10 MG TAB PO SCH ×3 (05:28→20:50)
[2016-09-20 06:00] LABS: BLOOD GAS BASE EXCESS -2.8 mmol/L (-2-2); BLOOD GAS CARBOXYHEMOGLOBIN 0.9 % (0-4); BLOOD GAS HCO3 20 mmol/L (22-26); BLOOD GAS METHEMOGLOBIN 1.2 % (0-2); BLOOD GAS O2 HGB SATURATION 96 % (90-100); BLOOD GAS OXYGEN CONTENT 14.9 Vol % (12.0-20.0); BLOOD GAS PCO2 29 mmHg (38-42); BLOOD GAS PO2 120 mmHg (61-120); BLOOD GAS TOTAL HGB 10.9 G/DL (12.0-16.0); TEMP CORR TO 98.6
[2016-09-20 06:01] LABS: CRITICAL VALUE NO; DRAW SITE RT BRACHIAL; FIO2 50 %; NUMBER OF ARTERIAL PUNCTURES 1; OXYGEN DEVICE BiPAP; STAT NO; VENT SETTINGS IPAP14/EPAP7
--- NOTE | 2016-09-20 06:36 | RADRPT ---
EXAM DATE/TIME: 09/20/2016 05:35 [facility] COMPARISON: CHEST SINGLE AP, September 19, 2016, 2:37. INDICATIONS : Please evaluate after respiratory failure. MEDICAL HISTORY : Diabetes mellitus type II. SURGICAL HISTORY : CABG. ENCOUNTER: Subsequent ACUITY: 1 week PAIN SCORE: Non-responsive. LOCATION: Bilateral chest FINDINGS: Right internal jugular catheter tip projects over the cavoatrial junction. Patchy areas of infiltrat e in left mid and lower lung are slightly changed in configuration, but similar in density. The righ t lung is clear. The heart is stable, mildly enlarged. CONCLUSION: Persistent patchy infiltrates in the left mid and lower lung. Cristino Mo MD on September 20, 2016 at 6:33 Board Certified Radiologist. This report was verified electronically.
[2016-09-20] MEDS ORDERED: ROCURONIUM INJ 100 MG/10 ML VIAL IV ONE (07:15)
[2016-09-20] MEDS ORDERED: TERBUTALINE INJ 1 MG/ML AMP SQ PRN ×2 (07:15→14:45)
[2016-09-20] MEDS ORDERED: ETOMIDATE 40 MG/20 ML VIAL IV PUSH ONE (07:15)
[2016-09-20] MEDS ORDERED: PHENYLEPHRINE INJ 160 MG in DEXTROSE 5% IN WATE 500 ML INJ 484 ML IV SCH ×2 (07:15)
--- NOTE | 2016-09-20 07:15 | HHI.CCPN ---
Subjective Remarks/Hospital Course This is a 86-year-old gentleman that presented to the ED with complaints of dyspnea, accompanied by a family member was later identified as his grandson. Patient was hypoxic in the triage, he was placed on nonrebreather initially. The patient also complained of having angina for several days. Initial troponin was 4.07. The patient's past medical history is significant for CHF, CAD, chronic kidney disease, single kidney. An ABG was obtained noted metabolic acidosis, with a bicarbonate of 10. The patient was placed on BiPAP and given 40 mg of Lasix. He subsequently diureses less than 500 cc. Nephrology consult was initiated per Dr. Alvarado, to Dr. Taylor for emergent dialysis. 2 amps of sodium bicarbonate was given. Critical care medicine was consulted for management and treatment. I placed a right IJ Vas-Cath in the emergency department, patient is pending dialysis. 09/19: Patient currently resting on BiPAP for respiratory rates in the high teens status post hemodialysis. Complaining of discomfort from SCDs. Chest pain is improved. Complaining of having only one "banana" with the past 3 days. No bowel movement Subjective 09/20: Tmax 100.9. Currently 99. Placed on BiPAP overnight due to increasing hypoxia. Respiratory rates in the low to mid 20s. Chest x-ray reveals worsening left lower lobe infiltrate. More somnolent at this AM. Will require intubation and central line placement. Objective Vital Signs Date Time Temp Pulse Resp B/P Pulse Ox O2 Delivery O2 Flow Rate FiO2 09/20/16 06:00 102 09/20/16 04:45 96 50 09/20/16 04:00 98.8 25 118/60 09/19/16 21:00 Nasal Cannula 6.00 Intake and Output 09/19/16 09/19/16 09/20/16 08:00 16:00 00:00 Intake Total 709 ml 550 ml Output Total 2050 ml 225 ml 180 ml Balance -2050 ml 484 ml 370 ml Result Diagram: 09/20/16 0336 09/20/16 0336 Other Results Microbiology Date/Time Procedure Status Source Growth 09/19/16 21:45 Gram Stain Received Sputum Expectorated Sputum Pending 09/19/16 21:45 Sputum Culture Received Sputum Expectorated Sputum Pending 09/19/16 08:45 Aerobic Blood Culture Received Blood Peripheral Pending 09/19/16 08:45 Anaerobic Blood Culture Received Blood Peripheral Pending Imaging Last Impressions Chest X-Ray 09/20/16 0000 Signed Impressions: Service Date/Time: Tuesday, September 20, 2016 05:35 - CONCLUSION: Persistent patchy infiltrates in the left mid and lower lung. Cristino Mo MD Renal Ultrasound 09/19/16 0000 Signed Impressions: Service Date/Time: September 12:08 - CONCLUSION: 1. Left nephrectomy. 2. Right kidney slightly echogenic which can be seen with medical renal disease. Shahbaz Noriega MD Objective Remarks GENERAL: 86-year-old critically ill-appearing obese male, appears stated age resting in bed on BiPAP, in no acute distress. SKIN: Warm and dry. No rash HEAD: Atraumatic. Normocephalic. EYES: Status post cataract changes. No scleral icterus. No injection or drainage. ENT: No nasal bleeding or discharge. Mucous membranes pink and moist. NECK: Trachea midline. No JVD noted. Right IJ hemodialysis catheter clean dry and intact CARDIOVASCULAR: Irregular. Tachycardia. S1, S2. No S4. 2/6 murmur apex for mitral regurg RESPIRATORY: Few crackles appreciated in the left lower lobe. No wheezing appreciated GASTROINTESTINAL: Abdomen soft, protuberant and non-tender,. Hypoactive bowel sounds MUSCULOSKELETAL: Extremities with 1+ pitting edema below the knees bilaterally. NEUROLOGICAL: Arousable. Oriented person. Nonfocal examination. Moving all 4 extremities spontaneously. Urinary Catheter: Yes Assessment to: Continue Goodwin insert reason: Prolonged Immobilization Vascular Central Line Catheter: Yes Assessment to: Continue Date of Insertion: Sep 19, 2016 Side: Right Location: Internal, Jugular A/P Assessment and Plan Neurologic/Psych: Blindness left eye- retinal detachment -No acute issues Acetaminophen for fever [place]/as needed morphine for pain management Respiratory: Acute respiratory failure secondary to pneumonia/acute diastolic heart failure -Currently on BiPAP 15/5@55% FiO2. Will intubate today. -Incentive spirometry while awake -Bronchodilator therapy as needed -Follow-up chest x-ray in a.m. revealed worsening left lower lobe infiltrate -See infectious disease for antibiotics Cardiovascular: NSTEMI Angina/unstable Acute on chronic systolic and diastolic congestive heart failure Cardiomegaly Previous CABG vessels with Dr. Perrin History NSTEMI 2008 - refused cardiac catheterization CAD Moderate to severe mitral regurgitation/moderate TR Hypertension Left bundle branch block Atrial fibrillation -Cardiology consult- Dr. Rosado. No indications for cardiac catheterization at this time per report -Continue monitoring serial troponins initial 4.09. Repeat at 0800 hrs. pending -ECHO 01/02/16 EF 4045 percent grade 1 diastolic dysfunction. Diffuse hypokinesis. MV-moderate to severe regurgitation,TV-mild to moderate regurgitation.PASP 55mmHG Repeat echo revealed EF 3035%. Severe MR. CAL 50 mmHg -EKG SR, LBBB , unchanged per Dr. Aggarwal broadcast operations director camp program director as discussed with Dr. Alvarado, the patient is not a candidate for cardiac catheterization -Currently in atrial fibrillation. Currently on heparin drip -Begin ASA 81 mg daily, Plavix 75 mg daily and, B-justice with Lopressor 5 milligrams IV every 4 hours post emergent dialysis session -BNP 2218 - Resume atorvastatin 20 mg daily for dyslipidemia. Lipid panel pending. LFTs within normal limits. - Patient is on enalapril 20 mg daily. This is held in light of acute kidney injury. - Converting metoprolol 25 mg twice a day IV. See above. Currently holding Norvasc 5 mg per day light of hypotension. - Currently holding Lasix 40 mg by mouth daily. Currently hemodialysis. 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 -Vas-Cath placement 09/19/15-emergent hemodialysis is been completed. -2 L - Nephrology consulted. Will reassess for hemodialysis today - Avoid nephrotoxic drugs. Specifically sp inhibitors have been held -- Strict I/Os - Follow BMP in a.m. -Renal ultrasound 09/19 revealed right kidney with medical renal disease/absent left kidney. Negative urine eosinophils. FEN Replace electrolytes as clinically indicated. GI: Patient is currently nothing by mouth. Will initiate tube feeds with Nepro post intubation goal 55 cc an hour Protonix for GI prophylaxis Colace/Senokot twice a day and daily MiraLAX for bowel regimen History of bladder cancer 3 Goodwin for accurate I's and O's in a critically ill patient. Heme: Normocytic anemia Leukocytosis Thrombocytopenia Patient is on iron sulfate 325 mg by mouth daily. This is been resumed. Follow-up CBC in AM. ID: Possible community-acquired pneumonia Day 2 Zosyn/Zithromax Pertinent cultures / - blood cultures 2 - pending 09/19 - urine culture - pending 09/19 - sputum - pending Influenza pending Endocrine: Hypothyroidism Diabetes mellitus -Follow-up thyroid panel - Currently on Levoxyl 50 mg by mouth daily. -Glucose monitoring every 6 hours per ICU protocol -- SSI - Follow-up hemoglobin A1c. MSK: Osteoarthritis/osteoporosis Continue vitamin D 3 1000 units by mouth daily. PT evaluate and treat Access - Right IJ hemodialysis catheter day #2 Prophylaxis: GI - Protonix DVT - SCD/heparin gtt Critical Care: The total additional critical care time was 35 minutes. Time to perform other separately billable procedures was not included in the critical care time. Denny Medellin MD Sep 20, 2016 07:15
[2016-09-20] MEDS ORDERED: PHENYLEPHRINE HCL 10 MG/ML VIAL ONE ×2 (07:52→08:02)
[2016-09-20] MEDS: CHLORHEXIDINE 0.12% (ORAL KIT) 15 ML CUP MT SCH ×4 (08:00→20:49)
[2016-09-20 08:11] LABS: APTT (PATIENT) 52.3 SEC (24.3-30.1)
--- NOTE | 2016-09-20 08:39 | HHI.NPPN ---
Subjective General Problems: Anemia, Heart Disease, Hypotension Renal Failure: Chronic, Stage IV History of Present Illness 86-year-old male known to me from before with a past medical history of stage IV chronic kidney disease, history of ischemic heart disease, congestive heart failure, history of nephrectomy with single kidney, and hypertension who came to the hospital with complaint of chest pain and worsening shortness of breath. I was called to see the patient because of worsening renal function and metabolic acidosis requiring dialysis. Additional Remarks Patient is drwsy, on BIPAP, getting intubated now. Objective Data Data 09/19/16 09/20/16 19:00 07:00 Intake Total 709 ml 1015 ml Output Total 225 ml 370 ml Balance 484 ml 645 ml Intake Oral 480 ml 480 ml IV Total 229 ml 535 ml Output Urine Total 225 ml 370 ml Vital Signs Date Time Temp Pulse Resp B/P Pulse Ox O2 Delivery O2 Flow Rate FiO2 09/20/16 06:00 102 09/20/16 04:45 96 50 09/20/16 04:00 125 09/20/16 04:00 98.8 125 25 118/60 93 09/20/16 02:00 115 09/20/16 00:00 98.9 118 26 122/57 93 09/20/16 00:00 118 09/19/16 22:00 120 09/19/16 21:00 94 Nasal Cannula 6.00 09/19/16 20:00 108 09/19/16 20:00 100.9 112 31 131/92 92 09/19/16 19:00 93 Nasal Cannula 6.00 09/19/16 18:00 112 09/19/16 16:00 98 09/19/16 16:00 99.0 98 23 122/65 98 09/19/16 14:00 91 09/19/16 12:00 100 09/19/16 12:00 98.6 100 23 108/58 94 09/19/16 10:00 97 09/19/16 09:00 95 Nasal Cannula 6.00 -: 09/20/16 0336 09/20/16 0336 Microbiology 09/19/16 Aerobic Blood Culture, Received Pending 09/19/16 Anaerobic Blood Culture, Received Pending 09/19/16 Aerobic Blood Culture, Received Pending 09/19/16 Anaerobic Blood Culture, Received Pending 1/5/17 Gram Stain, Received Pending 09/19/16 Sputum Culture, Received Pending Physical Exam General Appearance Remarks Drowsy for intubation. Eyes Eye Exam: Pupils Equal Throat Throat Exam: Oral Mucosa [place] & Moist Neck Neck Exam: Neck Supple Pulmonary Resp Exam: Crackles, Rhonchi, Decreased Bases, Diminished Breath Sounds Cardiology CV Exam: Regular, Normal Sinus Rhythm Gastrointestinal/Abdomen GI Exam: Soft, Non-Tender, Bowel Sounds Present Extremeties Extremities Exam: Trace Edema Neurologic Neuro Exam: Obtunded Assessment/Plan Assessment Summary: CHF, Hypotension, CKD Stage IV Problem List: (1) Hyperlipidemia (2) Hypertension (3) Type 2 diabetes mellitus (4) Non-STEMI (non-ST elevated myocardial infarction) (5) Respiratory distress (6) Chronic renal failure Plan Patient now has more resp. distress. For intubation. CXR noted. On Antibiotics for Pneumonia. Echo showing diffuse hypokinesia and EF of 30-35%. Creatinine increased. Will need HD today. BP is on lower side, will try with minimal fluid removal. Possible HD again in AM. Most likely will need custodial HD as he has single kidney, and has advance renal disease from before. Danielle Taylor MD Sep 20, 2016 08:39
--- NOTE | 2016-09-20 08:52 | PD.PROCEDR ---
Procedure Note Procedure DATE: 09/20/2016 PROCEDURE: Orotracheal intubation INDICATION: Acute hypoxemic respiratory failure DETAILS OF PROCEDURE The patient was placed in optimal position and preoxygenated with 100% FiO2 via bag valve mask. At the start oxygen saturation was 100%. The patient was administered 50 g fentanyl IV and 20 mg etomidate IV and 50 mg rocuronium IV. I entered the oropharynx with a size 4 GVL glidescope blade and obtained a grade 2 view of the airway. On single attempt a size 8.0 cuffed endotracheal tube was passed through the vocal cords. Correct tube location was confirmed with end tidal CO2 detector and by auscultating over bilateral lung sparrow. The endotracheal tube was secured with adhesive tape at a depth of 23 cm at the lips. The patient was connected to the ventilator. The patient tolerated the procedure well without any apparent complications. Oxygen saturations were maintained greater than 95% all times. STAT chest x-ray pending at time of dictation. Denny Medellin MD Sep 20, 2016 08:52
--- NOTE | 2016-09-20 08:52 | PD.PROCEDR ---
Central Line Procedure REASON FOR PROCEDURE Central venous access PROCEDURE PERFORMED Central line placement: Left internal jugular vein CONSENT Informed consent for procedure was obtained. The risks and benefits of the procedure were discussed to include but limited to bleeding, clot formation, infection, and even . ANESTHESIA Local injection of 1% Lidocaine DESCRIPTION OF THE PROCEDURE The patient was placed in supine, mild Trendelenburg position. The area was exposed and cleansed with ChloraPrep, times two. Large sterile drape was used to cover the patient, with the site exposed, under sterile conditions including cap, face mask, sterile gown, and sterile gloves. On single attempt, the introducer needle was inserted with negative pressure in syringe and venous flash was obtained. The guide wire was then advanced without any restriction and the needle was removed. The dilator was used without any complications. Using Seldinger technique the triple-lumen catheter was advanced over the guide wire to a depth of 20 centimeters. The guide wire was removed. All ports were aspirated with dark venous blood return and flushed easily with sterile saline. All ports were capped. Antibiotic disc was placed around central line at puncture site. The central line was secured to the skin with two interrupted 2.0 silk sutures. The area was bandaged with sterile see-through central line bandage. RADIOLOGICAL DATA Ultrasound guidance was used to locate the left internal jugular vein. Doppler/ color flow was used to confirm venous flow. COMPLICATIONS: No apparent complications ESTIMATED BLOOD LOSS: Less than 1 cc. Denny Medellin MD Sep 20, 2016 08:52
[2016-09-20] MEDS: SENNOSIDES 8.6 MG TAB PO SCH ×2 (09:00→20:50)
[2016-09-20] MEDS ORDERED: SODIUM CHLORIDE 0.9% FLUSH 5 ML FLUSH IVF PRN (09:00)
[2016-09-20] MEDS: DOCUSATE SODIUM 100 MG CAP PO SCH ×2 (09:00→20:49)
[2016-09-20] MEDS: ARTIFICIAL TEARS OPTH SOLN 15 ML BTL EACH EYE SCH ×3 (09:00→16:47)
--- NOTE | 2016-09-20 09:30 | RADRPT ---
EXAM DATE/TIME: 09/20/2016 09:03 [place] COMPARISON: No previous studies available for comparison. INDICATIONS : Evaluate post central line placement. MEDICAL HISTORY : Diabetes mellitus type II. SURGICAL HISTORY : CABG. ENCOUNTER: Subsequent ACUITY: 1 week PAIN SCORE: Non-responsive. LOCATION: Bilateral chest FINDINGS: Endotracheal tube, nasogastric tube in satisfactory position. Right IJ line tip near cavoatrial junct ion. Left IJ line tip in superior vena cava. There is patchy basilar airspace disease, similar to [facility] exam from earlier today. Heart size is mildly enlarged. No pneumothorax. Postoperative CABG. CONCLUSION: 1. Bilateral central lines in satisfactory position without pneumothorax. Endotracheal tube and nasog astric tube also in satisfactory position. Stable basilar airspace disease since earlier exam. Manoj Chester MD on September 20, 2016 at 9:20 Board Certified Radiologist. This report was verified electronically.
[2016-09-20] MEDS: CLOPIDOGREL 75 MG TAB PO SCH (10:10)
[2016-09-20] MEDS: ASPIRIN 81 MG CHEW TAB CHEW SCH (10:10)
[2016-09-20] MEDS: CHOLECALCIFEROL (VIT D3) 1000 UNIT TAB PO SCH (10:10)
[2016-09-20] MEDS: POLYETHYLENE GLYCOL 17 GM PKG PO SCH (10:11)
[2016-09-20] MEDS: ASCORBIC ACID 500 MG TAB PO SCH (10:11)
[2016-09-20] MEDS: FERROUS SULFATE 325 MG (65 MG ELEMENTAL IRON) TAB PO SCH (10:11)
[2016-09-20] MEDS: PANTOPRAZOLE SODIUM 40 MG VIAL IV SCH (10:12)
[2016-09-20] MEDS: SODIUM CHLORIDE 0.9% FLUSH 5 ML FLUSH IV FLUSH SCH ×2 (10:12→20:49)
[2016-09-20] MEDS: SODIUM CHLORIDE 0.9% FLUSH 5 ML FLUSH IVF SCH (10:12)
[2016-09-20] MEDS: AZITHROMYCIN INJ 500 MG in SODIUM CHLOR 0.9% 250 ML INJ 250 ML IV SCH (10:12)
[2016-09-20] MEDS: PROPOFOL 1000 MG/100 ML INJ 100 ML IV SCH ×2 (10:19→22:36)
[2016-09-20] MEDS: fentaNYL DRIP 250 ML IV SCH ×2 (10:19→22:36)
[2016-09-20 10:46] LABS: BLOOD GAS BASE EXCESS -3.5 mmol/L (-2-2); BLOOD GAS CARBOXYHEMOGLOBIN 0.6 % (0-4); BLOOD GAS HCO3 21 mmol/L (22-26); BLOOD GAS METHEMOGLOBIN 1.1 % (0-2); BLOOD GAS O2 HGB SATURATION 98 % (90-100); BLOOD GAS OXYGEN CONTENT 16.8 Vol % (12.0-20.0); BLOOD GAS PCO2 38 mmHg (38-42); BLOOD GAS PO2 274 mmHg (61-120); BLOOD GAS TOTAL HGB 11.8 G/DL (12.0-16.0); CRITICAL VALUE NO; OXYGEN DEVICE VENTILATOR; TEMP CORR TO 98.6
[2016-09-20 10:47] LABS: DRAW SITE RT BRACHIAL; FIO2 100 %; NUMBER OF ARTERIAL PUNCTURES 1; STAT YES; ULNAR PULSE PRESENT
[2016-09-20 10:51] LABS: APTT (PATIENT) 39.7 SEC (24.3-30.1)
[2016-09-20 13:04] LABS: CKMB 8.7 NG/ML (0.5-3.6)
[2016-09-20] MEDS: ALBUMIN HUMAN 25% 25 GM/100 ML BAGP IV PRN ×2 (13:04→13:06)
[2016-09-20] MEDS: SODIUM CHLOR 0.9% 1000 ML IV PRN (13:04)
[2016-09-20] MEDS: HEPARIN SODIUM - IV 10,000 UNITS/10 ML VIAL OTHER PRN (13:07)
[2016-09-20] MEDS ORDERED: NOREPINEPHRINE-DEXTROSE DRIP 250 ML IV SCH (14:45)
--- NOTE | 2016-09-20 15:57 | PD.CARD.PN ---
Subjective Subjective Remarks overnight events noted multi-organ failure Respiratory failure intubated this AM Worsen renal function on HD NSTEMI EF 30% on echo unchanged Severe MR unchanged On 2 pressors Critically ill Objective Medications Current Medications Medications (Trade) Dose Ordered Sig/Rufino Route Start Time Stop Time Status Last Admin (Tylenol) 650 mg Q6H PRN PO 09/19/16 02:30 (Peridex 0.12% Liq) 15 ml BID@08,20 MT 09/19/16 08:00 (Protonix Inj) 40 mg DAILY IV 09/19/16 09:00 09/20/16 10:12 (Colace) 100 mg BID PO 09/19/16 09:00 09/20/16 09:00 (Dulcolax Supp) 10 mg DAILY PRN RECTAL 09/19/16 02:30 Magnesium Hydroxide 30 ml 30 ml Q12H PRN PO 09/19/16 02:30 (NS 1000 ml Inj) 1,000 ml @ 0 mls/hr TITRATE PRN IV 09/19/16 04:15 09/20/16 13:04 Heparin Sodium (Porcine) 8000 units 8,000 units UNSCH PRN IV FLUSH 09/19/16 04:15 Sodium Chloride 1,000 ml @ 200 mls/hr Q5H PRN IV 09/19/16 04:15 (NS 250 ml Inj) 200 ml @ 0 mls/hr UNSCH PRN IV 09/19/16 04:15 (Mannitol Inj) 12.5 gm UNSCH PRN IV 09/19/16 04:15 (Albumin 25% Inj) 25 gm UNSCH PRN IV 09/19/16 04:15 09/20/16 13:06 (NS Flush) 5 ml UNSCH PRN IVF 09/19/16 04:15 (Heparin Inj) Dwell Heparin to f... UNSCH PRN OTHER 09/19/16 04:15 09/20/16 13:07 (Gentamicin (Dialysis) Inj) 10 mg UNSCH PRN OTHER 09/19/16 04:15 09/19/16 04:56 (Gelfoam 12 Mm/7 Mm Top) 1 foam UNSCH PRN TOP 09/19/16 04:15 (Zofran Inj) 4 mg UNSCH PRN IV 09/19/16 04:15 (Benadryl) 25 mg UNSCH PRN PO 09/19/16 04:15 (Nitrostat Sl) 0.4 mg UNSCH PRN SL 09/19/16 04:15 Clonidine 0.1 mg 0.1 mg UNSCH PRN PO 09/19/16 04:15 (Zithromax Inj/ NS 250 ml Inj) 250 ml @ 250 mls/hr Q24H IV 09/19/16 09:00 09/20/16 10:12 (NS Flush) 2 ml UNSCH PRN IV FLUSH 09/19/16 08:15 (NS Flush) 2 ml BID IV FLUSH 09/19/16 09:00 09/20/16 10:12 ([place] 5-325 Mg) 1 tab Q4H PRN PO 09/19/16 08:15 (Morphine Inj) 2 mg Q2H PRN IV 09/19/16 08:15 (Tears Naturale Opth Soln) 1 drop TID EACH EYE 09/19/16 09:00 09/20/16 12:05 (Zofran Inj) 4 mg Q6H PRN IV 09/19/16 08:15 Miscellaneous Information 1 Q361D XX 09/19/16 08:15 09/19/16 09:28 (Chlorhexidine 2% Cloth) 3 pack Taper DAILY@04 TOP 09/20/16 04:00 09/16/17 03:59 09/20/16 04:56 (Chlorhexidine 2% Cloth) 3 pack UNSCH PRN TOP 09/19/16 08:15 (Aspirin Chew) 81 mg DAILY CHEW 09/19/16 09:00 09/20/16 10:10 (Plavix) 75 mg DAILY PO 09/19/16 09:00 09/20/16 10:10 (Lipitor) 20 mg HS PO 09/19/16 21:00 09/19/16 21:36 (Ferrous Sulfate) 325 mg DAILY PO 09/19/16 09:00 09/20/16 10:11 (Vitamin C) 500 mg DAILY PO 09/19/16 09:00 09/20/16 10:11 (Isordil) 10 mg Q8HR PO 09/19/16 09:00 09/20/16 05:28 (Synthroid) 50 mcg DAILY@0600 PO 09/20/16 06:00 09/20/16 05:28 Cholecalciferol 1000 units 1,000 units DAILY PO 09/19/16 09:00 09/20/16 10:10 Piperacillin Sod/ Tazobactam Sod 50 ml @ 100 mls/hr Q8H IV 09/19/16 10:00 09/20/16 10:11 (Heparin-D5W Inj) 250 ml @ 0 mls/hr TITRATE IV 09/19/16 09:15 09/19/16 10:34 (Lopressor Inj) 5 mg Q4HR IV PUSH 09/19/16 20:00 09/20/16 04:10 Chlorhexidine Gluconate 15 ml 15 ml BID@08,20 MT 09/20/16 08:00 09/20/16 08:00 Propofol 100 ml @ 0 mls/hr TITRATE IV 09/20/16 07:00 09/20/16 10:19 Fentanyl Citrate 250 ml @ 0 mls/hr TITRATE IV 09/20/16 07:00 09/20/16 10:19 (Neosynephrine Inj/D5W 500 ml Inj) 500 ml @ 0 mls/hr TITRATE IV 09/20/16 07:15 09/20/16 13:43 (Senokot) 17.2 mg Q12H PO 09/20/16 09:00 (Miralax) 17 gm DAILY PO 09/20/16 09:00 09/20/16 10:11 (NS Flush) DAILY IVF 09/20/16 09:00 09/20/16 10:12 IV Flush UNSCH PRN IVF 09/20/16 09:00 (Levophed-Dextrose Drip) 250 ml @ 0 mls/hr TITRATE IV 09/20/16 14:45 09/20/16 14:59 (Brethine Inj) 1 mg UNSCH PRN SQ 09/20/16 14:45 Vital Signs / I&O Vital Signs Date Time Temp Pulse Resp B/P Pulse Ox O2 Delivery O2 Flow Rate FiO2 09/20/16 15:36 100 60 09/20/16 13:00 100 50 09/20/16 12:00 98.0 100 17 106/66 100 09/20/16 12:00 100 09/20/16 12:00 96 09/20/16 10:00 98 09/20/16 08:30 100 100 09/20/16 08:15 100 09/20/16 08:00 112 09/20/16 08:00 99.5 114 16 124/64 98 09/20/16 07:00 98 Bi-Pap 50 09/20/16 06:00 102 09/20/16 04:45 96 50 09/20/16 04:00 125 09/20/16 04:00 98.8 125 25 118/60 93 09/20/16 02:00 115 09/20/16 00:00 98.9 118 26 122/57 93 09/20/16 00:00 118 09/19/16 22:00 120 09/19/16 21:00 94 Nasal Cannula 6.00 09/19/16 20:00 108 09/19/16 20:00 100.9 112 31 131/92 92 09/19/16 19:00 93 Nasal Cannula 6.00 09/19/16 18:00 112 09/19/16 16:00 98 09/19/16 16:00 99.0 98 23 122/65 98 I/O 09/19/16 09/19/16 09/19/16 09/20/16 09/20/16 09/20/16 07:00 15:00 23:00 07:00 15:00 23:00 Intake Total 709 ml 550 ml 465 ml Output Total 2050 ml 225 ml 180 ml 190 ml 800 ml Balance -2050 ml 484 ml 370 ml 275 ml -800 ml Intake Oral 480 ml 240 ml 240 ml IV Total 229 ml 310 ml 225 ml Output Urine Total 50 ml 225 ml 180 ml 190 ml Hemodialysis 2000 ml 800 ml # Voids 1 Physical Exam GENERAL: Sedated, intubated SKIN: Warm and dry. HEAD: Normocephalic. EYES: No scleral icterus. No injection or drainage. NECK: Supple, trachea midline. No JVD or lymphadenopathy. CARDIOVASCULAR: IRR IRR without murmurs, gallops, or rubs. RESPIRATORY: Vented. No accessory muscle use. GASTROINTESTINAL: Abdomen soft, non-tender, nondistended. EXTREMITIES: No cyanosis, or edema. Laboratory Laboratory Tests Test 09/19/16 09/20/16 09/20/16 09/20/16 16:51 00:10 03:36 05:49 Activated Partial 52.6 SEC 75.9 SEC Thromboplast Time Sodium Level 140 MEQ/L 137 MEQ/L Potassium Level 4.2 MEQ/L 3.8 MEQ/L Chloride Level 105 MEQ/L 103 MEQ/L Carbon Dioxide Level 23.8 MEQ/L 21.5 MEQ/L Anion Gap 11 MEQ/L 13 MEQ/L Blood Urea Nitrogen 46 MG/DL 52 MG/DL Creatinine 3.88 MG/DL 4.18 MG/DL Estimat Glomerular Filtration 15 ML/MIN 14 ML/MIN Rate Random Glucose 208 MG/DL 181 MG/DL Hemoglobin A1c 7.1 % Calcium Level 7.9 MG/DL 8.2 MG/DL Magnesium Level 1.7 MG/DL 2.2 MG/DL Total Creatine Kinase 552 U/L 577 U/L Creatine Kinase MB 12.0 NG/ML 8.7 NG/ML Creatine Kinase MB % 2.2 % 1.5 % Troponin I 15.40 NG/ML 13.90 NG/ML Thyroid Stimulating Hormone 0.837 uIU/ML 3rd Gen White Blood Count 11.6 TH/MM3 Red Blood Count 3.98 MIL/MM3 Hemoglobin 11.8 GM/DL Hematocrit 35.6 % Mean Corpuscular Volume 89.3 FL Mean Corpuscular Hemoglobin 29.7 PG Mean Corpuscular Hemoglobin 33.2 % Concent Red Cell Distribution Width 14.5 % Platelet Count 112 TH/MM3 Mean Platelet Volume 9.4 FL Neutrophils (%) (Auto) 81.3 % Lymphocytes (%) (Auto) 8.3 % Monocytes (%) (Auto) 9.7 % Eosinophils (%) (Auto) 0.1 % Basophils (%) (Auto) 0.6 % Neutrophils # (Auto) 9.4 TH/MM3 Lymphocytes # (Auto) 1.0 TH/MM3 Monocytes # (Auto) 1.1 TH/MM3 Eosinophils # (Auto) 0.0 TH/MM3 Basophils # (Auto) 0.1 TH/MM3 CBC Comment DIFF FINAL Differential Comment Phosphorus Level 3.8 MG/DL Total Bilirubin 0.9 MG/DL Aspartate Amino Transf 60 U/L (AST/SGOT) Alanine Aminotransferase 20 U/L (ALT/SGPT) Alkaline Phosphatase 76 U/L Total Protein 5.8 GM/DL Albumin 2.5 GM/DL Blood Gas Puncture Site RT BRACHIAL Blood Gas Patient Temperature 98.6 Blood Gas HCO3 20 mmol/L Blood Gas Base Excess -2.8 mmol/L Blood Gas Oxygen Saturation 96 % Arterial Blood pH 7.46 Arterial Blood Partial 29 mmHg Pressure CO2 Arterial Blood Partial 120 mmHg Pressure O2 Arterial Blood Oxygen Content 14.9 Vol % Arterial Blood 0.9 % Carboxyhemoglobin Arterial Blood Methemoglobin 1.2 % Blood Gas Hemoglobin 10.9 G/DL Oxygen Delivery Device BiPAP Blood Gas Ventilator Setting [id number]/[id number] Blood Gas Inspired Oxygen 50 % Test 09/20/16 09/20/16 09/20/16 07:53 10:28 10:36 Activated Partial 52.3 SEC 39.7 SEC Thromboplast Time Lactic Acid Level 1.8 mmol/L Blood Gas Puncture Site RT BRACHIAL Blood Gas Patient Temperature 98.6 Blood Gas HCO3 21 mmol/L Blood Gas Base Excess -3.5 mmol/L Blood Gas Oxygen Saturation 98 % Arterial Blood pH 7.36 Arterial Blood Partial 38 mmHg Pressure CO2 Arterial Blood Partial 274 mmHg Pressure O2 Arterial Blood Oxygen Content 16.8 Vol % Arterial Blood 0.6 % Carboxyhemoglobin Arterial Blood Methemoglobin 1.1 % Blood Gas Hemoglobin 11.8 G/DL Oxygen Delivery Device VENTILATOR Blood Gas Ventilator Setting Blood Gas Inspired Oxygen 100 % Assessment and Plan Problem List: (1) Non-STEMI (non-ST elevated myocardial infarction) Assessment and Plan: Critically ill Very poor prognosis MR unchanged from previous. Refused CT surgery in the past Acute on Chronic RF on HD Hemodynamically unstable on 2 pressors. Fever/PNA Sepsis vs Cardiogenic shock Not a candidate for C a this time Continue aggressive medical management for CAD (2) CHF (congestive heart failure) (3) Acute renal failure (4) Respiratory distress (5) Hyperlipidemia (6) Hypertension Problem Qualifiers (1) Acute renal failure: Qualified Code: N17.9 - Acute renal failure, unspecified acute renal failure type Josh Willoughby MD Sep 20, 2016 15:57
[2016-09-20 19:15] LABS: APTT (PATIENT) 87.4 SEC (24.3-30.1)
[2016-09-20] MEDS: HEPARIN-D5W INJ 250 ML IV SCH (20:48)
[2016-09-20] MEDS: ATORVASTATIN 20 MG TAB PO SCH (20:49)
[2016-09-21] VITALS (25 sets, daily range): BP systolic 100–157; BP diastolic 54–81; PULSE 84–136; RESP 16–20; TEMP 98.9–100.9; O2SAT 93–100
[2016-09-21] MEDS: METOPROLOL TARTRATE 5 MG/5 ML VIAL IV PUSH SCH ×4 (00:05→12:00)
[2016-09-21] MEDS: PIPERACIL-TAZO 2.25 GM PREMIX 50 ML IV SCH ×3 (01:47→18:08)
[2016-09-21] MEDS: RESP: ALBUTEROL 2.5 MG/IPRATROPIUM 0.5 MG NEB (SCH) NEB ×4 (03:32→20:03)
[2016-09-21] MEDS: CHLORHEXIDINE GLUCONATE 2 % 1 PACK (2 CLOTHS) TOP SCH (04:28)
[2016-09-21 04:59] LABS: AUTOMATED NEUTROPHIL # 6.9 TH/MM3 (1.8-7.7); BASOPHIL # 0.1 TH/MM3 (0-0.2); BASOPHIL % 0.9 % (0.0-2.0); EOSINOPHIL # 0.2 TH/MM3 (0-0.4); EOSINOPHIL % 1.9 % (0.0-4.0); HEMATOCRIT 30.9 % (39.0-51.0); HEMO FLAGS DIFF FINAL; LYMPH % 14.5 % (9.0-44.0); LYMPHOCYTE # 1.4 TH/MM3 (1.0-4.8); MEAN CELL VOLUME 89.2 FL (80.0-100.0); MEAN CORPUSCULAR HEMOGLOBIN 30.3 PG (27.0-34.0); MEAN CORPUSCULAR HGB CONC 33.9 % (32.0-36.0); MONO % 10.2 % (0.0-8.0); NEUT % 72.5 % (16.0-70.0); PLATELET COUNT 110 TH/MM3 (150-450); RED BLOOD COUNT 3.47 MIL/MM3 (4.50-5.90); RED CELL DISTRIBUTION WIDTH 14.8 % (11.6-17.2); WHITE BLOOD COUNT 9.6 TH/MM3 (4.0-11.0)
[2016-09-21 05:27] LABS: ALT (GPT) 24 U/L (12-78); ANION GAP 10 MEQ/L (5-15); AST (GOT) 67 U/L (15-37); BICARBONATE 27.2 MEQ/L (21.0-32.0); BLOOD UREA NITROGEN 44 MG/DL (7-18); CHLORIDE 101 MEQ/L (98-107); GLOMERULAR FILTRATION RATE 12 ML/MIN (>89); POTASSIUM 3.8 MEQ/L (3.5-5.1); SODIUM (NA) 138 MEQ/L (136-145)
[2016-09-21 05:30] LABS: ALKALINE PHOSPHATASE 67 U/L (45-117); CREATINE KINASE 838 U/L (39-308); TOTAL BILIRUBIN ADULT 1.3 MG/DL (0.2-1.0)
[2016-09-21 06:06] LABS: CKMB 8.4 NG/ML (0.5-3.6)
[2016-09-21] MEDS: ISOSORBIDE DINITRATE 10 MG TAB PO SCH ×2 (06:26→13:17)
[2016-09-21] MEDS: LEVOTHYROXINE SODIUM 50 MCG TAB PO SCH (06:28)
[2016-09-21 07:31] LABS: APTT (PATIENT) 45.2 SEC (24.3-30.1)
[2016-09-21] MEDS: PANTOPRAZOLE SODIUM 40 MG VIAL IV SCH (07:42)
[2016-09-21] MEDS: AZITHROMYCIN INJ 500 MG in SODIUM CHLOR 0.9% 250 ML INJ 250 ML IV SCH (07:42)
[2016-09-21] MEDS: CLOPIDOGREL 75 MG TAB PO SCH (07:42)
[2016-09-21] MEDS: CHOLECALCIFEROL (VIT D3) 1000 UNIT TAB PO SCH (07:43)
[2016-09-21] MEDS: SENNOSIDES 8.6 MG TAB PO SCH ×2 (07:43→22:08)
[2016-09-21] MEDS: ASCORBIC ACID 500 MG TAB PO SCH (07:43)
[2016-09-21] MEDS: ASPIRIN 81 MG CHEW TAB CHEW SCH (07:43)
[2016-09-21] MEDS: POLYETHYLENE GLYCOL 17 GM PKG PO SCH (07:44)
[2016-09-21] MEDS: DOCUSATE SODIUM 100 MG CAP PO SCH ×2 (07:44→22:07)
[2016-09-21] MEDS: FERROUS SULFATE 325 MG (65 MG ELEMENTAL IRON) TAB PO SCH (07:44)
[2016-09-21] MEDS: ARTIFICIAL TEARS OPTH SOLN 15 ML BTL EACH EYE SCH ×3 (07:45→18:05)
[2016-09-21] MEDS: SODIUM CHLORIDE 0.9% FLUSH 5 ML FLUSH IV FLUSH SCH ×2 (07:45→22:07)
[2016-09-21] MEDS: SODIUM CHLORIDE 0.9% FLUSH 5 ML FLUSH IVF SCH (07:45)
[2016-09-21] MEDS: CHLORHEXIDINE 0.12% (ORAL KIT) 15 ML CUP MT SCH ×3 (07:47→22:07)
[2016-09-21] MEDS: PROPOFOL 1000 MG/100 ML INJ 100 ML IV SCH ×2 (09:52→17:32)
--- NOTE | 2016-09-21 12:16 | HHI.NPPN ---
Subjective General Problems: Anemia, Heart Disease, Hypotension Renal Failure: Chronic, Stage IV History of Present Illness 86-year-old male known to me from before with a past medical history of stage IV chronic kidney disease, history of ischemic heart disease, congestive heart failure, history of nephrectomy with single kidney, and hypertension who came to the hospital with complaint of chest pain and worsening shortness of breath. I was called to see the patient because of worsening renal function and metabolic acidosis requiring dialysis. Additional Remarks he is on the ventilator. On Levophed and Neosynephrine. BP is labile. Tachycardic. Underwent HD yesterday with removal of 800 ml in UF. Objective Data Data 09/20/16 09/21/16 19:00 07:00 Intake Total 1476 ml Output Total 800 ml 70 ml Balance -800 ml 1406 ml IV Total 1036 ml Tube Feeding 440 ml Output Urine Total 70 ml Hemodialysis 800 ml Vital Signs Date Time Temp Pulse Resp B/P Pulse Ox O2 Delivery O2 Flow Rate FiO2 09/21/16 10:00 91 09/21/16 08:31 85 09/21/16 08:28 94 60 09/21/16 08:00 100.9 85 16 112/56 97 09/21/16 08:00 85 09/21/16 08:00 60 09/21/16 07:00 99 Mechanical Ventilator 60 09/21/16 06:00 84 09/21/16 04:30 95 60 09/21/16 04:00 103 09/21/16 04:00 60 09/21/16 04:00 98.9 95 17 105/71 95 09/21/16 02:00 95 09/21/16 01:28 97 60 09/21/16 00:00 100.4 98 16 123/64 100 09/21/16 00:00 98 09/21/16 00:00 60 09/20/16 20:20 99 60 09/20/16 20:00 100.8 96 16 114/70 99 09/20/16 20:00 60 09/20/16 19:00 99 Mechanical Ventilator 60 09/20/16 16:00 98.9 122 16 120/62 99 09/20/16 16:00 111 09/20/16 16:00 100 09/20/16 15:36 100 60 09/20/16 14:00 105 09/20/16 13:00 100 50 -: 1/7/17 0435 09/21/16 0435 Physical Exam General Appearance: Well Developed, Well Nourished Eyes Eye Exam: Pupils Equal Throat Throat Exam: Oral Mucosa [place] & Moist Neck Neck Exam: Neck Supple Pulmonary Resp Exam: Crackles, Rhonchi, Decreased Bases, Diminished Breath Sounds Cardiology CV Exam: Regular, Normal Sinus Rhythm Gastrointestinal/Abdomen GI Exam: Soft Extremeties Extremities Exam: Trace Edema, Dependent Edema Neurologic Neuro Exam: Unresponsive Assessment/Plan Assessment Summary: CHF, Hypotension, CKD Stage IV Problem List: (1) Acute renal failure Plan: Acute on chronic kidney disease Oliguric. Dialysis dependent. Repeat labs tomorrow. Possible need for dialysis tomorrow. Continue supportive care. (2) Non-STEMI (non-ST elevated myocardial infarction) Plan: cardiology following. prognosis is guarded. (3) Hypertension (4) Type 2 diabetes mellitus Plan: insulin coverage, maintain blood glucose between 140 and 180. (5) Respiratory distress Plan: now on the ventilator. Problem Qualifiers (1) Acute renal failure: Qualified Code: N17.9 - Acute renal failure, unspecified acute renal failure type Jamel Gaytan MD Sep 21, 2016 12:16
--- NOTE | 2016-09-21 13:15 | PD.CARD.PN ---
Subjective Subjective Remarks My office records and hospital records were reviewed and Dr. Chester spoken with. The patient is intubated and sedated. He is on phenylephrine with borderline blood pressure. Telemetry reveals atrial fibrillation. Objective Medications Reviewed Vital Signs / I&O Vital Signs Date Time Temp Pulse Resp B/P Pulse Ox O2 Delivery O2 Flow Rate FiO2 09/21/16 12:14 94 60 09/21/16 12:00 112 09/21/16 12:00 60 09/21/16 12:00 99.1 103 16 100/54 93 09/21/16 10:00 91 09/21/16 08:31 85 09/21/16 08:28 94 60 09/21/16 08:00 100.9 85 16 112/56 97 09/21/16 08:00 85 09/21/16 08:00 60 09/21/16 07:00 99 Mechanical Ventilator 60 09/21/16 06:00 84 09/21/16 04:30 95 60 09/21/16 04:00 103 09/21/16 04:00 60 09/21/16 04:00 98.9 95 17 105/71 95 09/21/16 02:00 95 09/21/16 01:28 97 60 09/21/16 00:00 100.4 98 16 123/64 100 09/21/16 00:00 98 09/21/16 00:00 60 09/20/16 20:20 99 60 09/20/16 20:00 100.8 96 16 114/70 99 09/20/16 20:00 60 09/20/16 19:00 99 Mechanical Ventilator 60 09/20/16 16:00 98.9 122 16 120/62 99 09/20/16 16:00 111 09/20/16 16:00 100 09/20/16 15:36 100 60 09/20/16 14:00 105 I/O 09/20/16 09/20/16 09/20/16 09/21/16 09/21/16 09/21/16 07:00 15:00 23:00 07:00 15:00 23:00 Intake Total 465 ml 604 ml 872 ml Output Total 190 ml 830 ml 40 ml Balance 275 ml -226 ml 832 ml Intake Oral 240 ml IV Total 225 ml 448 ml 588 ml Tube Feeding 156 ml 284 ml Output Urine Total 190 ml 30 ml 40 ml Hemodialysis 800 ml Physical Exam GENERAL: Well-nourished, well-developed patient in no apparent distress. SKIN: Warm and dry. NECK: JVD normal - less than or equal to 5 cm H20. CARDIOVASCULAR: Irregular rate and rhythm without gallops, or rubs. There may be a 1/6 systolic ejection murmur at the apex. RESPIRATORY: Normal breath sounds - equal bilaterally. No accessory muscle use. No wheezes, rales or rubs. PERIPHERY: No cyanosis, or edema. Laboratory Laboratory Tests Test 09/20/16 09/21/16 09/21/16 09/21/16 18:30 00:30 04:35 06:55 Activated Partial 87.4 SEC 76.0 SEC 45.2 SEC Thromboplast Time White Blood Count 9.6 TH/MM3 Red Blood Count 3.47 MIL/MM3 Hemoglobin 10.5 GM/DL Hematocrit 30.9 % Mean Corpuscular Volume 89.2 FL Mean Corpuscular Hemoglobin 30.3 PG Mean Corpuscular Hemoglobin 33.9 % Concent Red Cell Distribution Width 14.8 % Platelet Count 110 TH/MM3 Mean Platelet Volume 9.6 FL Neutrophils (%) (Auto) 72.5 % Lymphocytes (%) (Auto) 14.5 % Monocytes (%) (Auto) 10.2 % Eosinophils (%) (Auto) 1.9 % Basophils (%) (Auto) 0.9 % Neutrophils # (Auto) 6.9 TH/MM3 Lymphocytes # (Auto) 1.4 TH/MM3 Monocytes # (Auto) 1.0 TH/MM3 Eosinophils # (Auto) 0.2 TH/MM3 Basophils # (Auto) 0.1 TH/MM3 CBC Comment DIFF FINAL Differential Comment Sodium Level 138 MEQ/L Potassium Level 3.8 MEQ/L Chloride Level 101 MEQ/L Carbon Dioxide Level 27.2 MEQ/L Anion Gap 10 MEQ/L Blood Urea Nitrogen 44 MG/DL Creatinine 4.63 MG/DL Estimat Glomerular Filtration 12 ML/MIN Rate Random Glucose 171 MG/DL Lactic Acid Level 1.2 mmol/L Calcium Level 7.7 MG/DL Phosphorus Level 3.5 MG/DL Magnesium Level 2.0 MG/DL Total Bilirubin 1.3 MG/DL Aspartate Amino Transf 67 U/L (AST/SGOT) Alanine Aminotransferase 24 U/L (ALT/SGPT) Alkaline Phosphatase 67 U/L Total Creatine Kinase 838 U/L Creatine Kinase MB 8.4 NG/ML Creatine Kinase MB % 1.0 % Troponin I 21.20 NG/ML Total Protein 5.6 GM/DL Albumin 2.6 GM/DL Imaging Last 48 hours Impressions Chest X-Ray 09/20/16 0853 Signed Impressions: Service Date/Time: Tuesday, September 20, 2016 09:03 - CONCLUSION: 1. Bilateral central lines in satisfactory position without pneumothorax. Endotracheal tube and nasogastric tube also in satisfactory position. Stable basilar airspace disease since earlier exam. Manoj Chester MD Chest X-Ray 09/20/16 0000 Signed Impressions: Service Date/Time: Tuesday, September 20, 2016 05:35 - CONCLUSION: Persistent patchy infiltrates in the left mid and lower lung. Cristino Mo MD Assessment and Plan Assessment and Plan Problems: Non-ST elevation RI Chronic atrial fibrillation Acute on chronic CHF Ischemic cardiomyopathy with severe mitral regurgitation Worsening renal insufficiency Anemia Hypertension Hyperlipidemia Recommendations: The patient is not a candidate for catheterization nor redo heart surgery and in fact on numerous occasions has told me he wanted nothing other than medication. His prognosis is grim. I do not think he will survive short term and even if he did would not do well in the near future. I will leave supportive care to the hospitalist/critical care service. I have spoken to his daughter, Michelle Rogers, who had met before and we did discuss this. I did recommend hospice consultation and she will discuss this with family. I will sign off and be available if needed. Osei Rosado MD Sep 21, 2016 13:15
[2016-09-21] MEDS: fentaNYL DRIP 250 ML IV SCH (14:11)
[2016-09-21 15:27] LABS: BLOOD GAS VENOUS BASE EXCESS 0.2 mmol/L (-2-2); BLOOD GAS VENOUS HCO3 26 mmol/L (22-26); BLOOD GAS VENOUS O2 CONTENT 9.8 Vol % (9.0-17.0); BLOOD GAS VENOUS O2 HGB SAT 64 % (70-76); BLOOD GAS VENOUS PCO2 53 mmHg (44-48); BLOOD GAS VENOUS PO2 40 mmHg (35-40); BLOOD GAS VENOUS pH 7.31 (7.360-7.400); TEMP CORR TO 98.6
[2016-09-21 15:28] LABS: CRITICAL VALUE YES; OXYGEN DEVICE VENTILATOR
[2016-09-21 15:29] LABS: DRAW SITE CENTRAL LINE; FIO2 60 %; STAT NO
--- NOTE | 2016-09-21 15:34 | HHI.CCPN ---
Subjective Remarks/Hospital Course This is a 86-year-old gentleman that presented to the ED with complaints of dyspnea, accompanied by a family member was later identified as his grandson. Patient was hypoxic in the triage, he was placed on nonrebreather initially. The patient also complained of having angina for several days. Initial troponin was 4.07. The patient's past medical history is significant for CHF, CAD, chronic kidney disease, single kidney. An ABG was obtained noted metabolic acidosis, with a bicarbonate of 10. The patient was placed on BiPAP and given 40 mg of Lasix. He subsequently diureses less than 500 cc. Nephrology consult was initiated per Dr. Alvarado, to Dr. Taylor for emergent dialysis. 2 amps of sodium bicarbonate was given. Critical care medicine was consulted for management and treatment. I placed a right IJ Vas-Cath in the emergency department, patient is pending dialysis. 09/19: Patient currently resting on BiPAP for respiratory rates in the high teens status post hemodialysis. Complaining of discomfort from SCDs. Chest pain is improved. Complaining of having only one "banana" with the past 3 days. No bowel movement 09/20: Tmax 100.9. Currently 99. Placed on BiPAP overnight due to increasing hypoxia. Respiratory rates in the low to mid 20s. Chest x-ray reveals worsening left lower lobe infiltrate. More somnolent at this AM. Will require intubation and central line placement. Subjective 09/21: Tmax 100.9 currently 9.1. Intubated yesterday due to increasing hypoxia. Currently essentially anuric. Increasing vasopressor requirements. Dynamometer Tuner notified family that prognosis very grim. Currently on 2 vasopressors and stress dose steroids. Oozing from hemodialysis catheter noted. Objective Vital Signs Date Time Temp Pulse Resp B/P Pulse Ox O2 Delivery O2 Flow Rate FiO2 09/21/16 14:00 118 09/21/16 12:14 94 60 09/21/16 12:00 99.1 16 100/54 09/21/16 07:00 Mechanical Ventilator 09/19/16 21:00 6.00 Intake and Output 09/20/16 09/20/16 09/21/16 08:00 16:00 00:00 Intake Total 465 ml 604 ml Output Total 190 ml 800 ml 30 ml Balance 275 ml -800 ml 574 ml Result Diagram: 09/21/16 0435 09/21/16 0435 Other Results Microbiology Date/Time Procedure Status Source Growth 09/19/16 21:45 Gram Stain - Final Resulted Sputum Expectorated Sputum 09/19/16 21:45 Sputum Culture - Preliminary Resulted Sputum Expectorated Sputum IMMATURE GROWTH - REINCUBATE 09/19/16 08:45 Aerobic Blood Culture - Preliminary Resulted Blood Peripheral NO GROWTH IN 2 DAYS 09/19/16 08:45 Anaerobic Blood Culture - Preliminary Resulted Blood Peripheral NO GROWTH IN 2 DAYS Imaging Last Impressions Chest X-Ray 09/20/16 0853 Signed Impressions: Service Date/Time: Tuesday, September 20, 2016 09:03 - CONCLUSION: 1. Bilateral central lines in satisfactory position without pneumothorax. Endotracheal tube and nasogastric tube also in satisfactory position. Stable basilar airspace disease since earlier exam. Manoj Chester MD Renal Ultrasound 09/19/16 0000 Signed Impressions: Service Date/Time: September 12:08 - CONCLUSION: 1. Left nephrectomy. 2. Right kidney slightly echogenic which can be seen with medical renal disease. Shahbaz Noriega MD Objective Remarks GENERAL: 86-year-old critically ill-appearing obese male, appears stated age resting in bed on BiPAP, in no acute distress. SKIN: Warm and dry. No rash HEAD: Atraumatic. Normocephalic. EYES: Status post cataract changes. No scleral icterus. No injection or drainage. ENT: No nasal bleeding or discharge. Mucous membranes pink and moist. NECK: Trachea midline. No JVD noted. Right IJ hemodialysis has been removed. Left IJ CVL clean dry and intact CARDIOVASCULAR: Irregular. Tachycardia. S1, S2. No S4. 2/6 murmur apex for mitral regurg RESPIRATORY: Few crackles appreciated in the left lower lobe. No wheezing appreciated GASTROINTESTINAL: Abdomen soft, protuberant and non-tender,. Hypoactive bowel sounds MUSCULOSKELETAL: Extremities with 1+ pitting edema below the knees bilaterally. NEUROLOGICAL: Arousable. Oriented person. Nonfocal examination. Moving all 4 extremities spontaneously. Urinary Catheter: Yes Assessment to: Continue Goodwin insert reason: Prolonged Immobilization Vascular Central Line Catheter: Yes Assessment to: Continue Date of Insertion: Sep 20, 2016 Line: Central Venous Catheter Side: Left Location: Internal, Jugular A/P Assessment and Plan Neurologic/Psych: Blindness left eye- retinal detachment - Patient is on propofol/fentanyl drips for sedation/analgesia while intubated Goal of RASS -2 Daily sedation vacation Respiratory: Acute respiratory failure secondary to pneumonia/acute diastolic heart failure -PRVC 16/tidal volume around 550, I time 1.2, PEEP 5, FiO2 60% -Bronchodilator therapy as needed -Follow-up chest x-ray in a.m. revealed worsening left lower lobe infiltrate repeat in a.m. -See infectious disease for antibiotics Cardiovascular: NSTEMI Angina/unstable Acute on chronic systolic and diastolic congestive heart failure Cardiomegaly Previous CABG vessels with Dr. Perrin History NSTEMI 2008 - refused cardiac catheterization CAD Moderate to severe mitral regurgitation/moderate TR Hypertension Left bundle branch block Atrial fibrillation -Cardiology consult- Dr. Rosado. No indications for cardiac catheterization at this time per report Dr. Rosado discussed with family. Recommended palliative care/hospice as with his conversation with this patient, he did not want these sorts aggressive care is to be performed -Continue monitoring serial troponins initial 4.09. Trending upward currently greater than 20 -ECHO 01/02/16 EF 4045 percent grade 1 diastolic dysfunction. Diffuse hypokinesis. MV-moderate to severe regurgitation,TV-mild to moderate regurgitation.PASP 55mmHG Repeat echo revealed EF 30-35%. Severe MR. CAL 50 mmHg -EKG SR, LBBB , unchanged per Dr. 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 Alvarado, the patient is not a candidate for cardiac catheterization -Currently in atrial fibrillation. Heparin drip discontinued secondary to bleeding -Begin ASA 81 mg daily, Plavix 75 mg daily Lopressor held secondary to hypotension -BNP 2218 - Resume atorvastatin 20 mg daily for dyslipidemia. LFTs within normal limits. - Patient is on enalapril 20 mg daily. This is held in light of acute kidney injury. - Converting metoprolol 25 mg twice a day IV. See above. Currently holding Norvasc 5 mg per day light of hypotension. - Currently holding Lasix 40 mg by mouth daily. Currently hemodialysis. 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 -Vas-Cath placement 09/19/15-emergent hemodialysis is been completed. -2 L and 800 cc yesterday - Nephrology consulted. Will reassess for hemodialysis tomorrow - Avoid nephrotoxic drugs. Specifically sp inhibitors have been held -- Strict I/Os - Follow BMP in a.m. -Renal ultrasound 09/19 revealed right kidney with medical renal disease/absent left kidney. Negative urine eosinophils. FEN Replace electrolytes as clinically indicated. GI: Nepro post intubation goal 55 cc an hour Protonix for GI prophylaxis Colace/Senokot twice a day and daily MiraLAX for bowel regimen History of bladder cancer 3 Goodwin for accurate I's and O's in a critically ill patient. Heme: Normocytic anemia Leukocytosis Thrombocytopenia Patient is on iron sulfate 325 mg by mouth daily. This is been resumed. Follow-up CBC in AM. ID: Possible community-acquired pneumonia Day 3 Zosyn/Zithromax Pertinent cultures / - blood cultures 2 -no growth / - urine culture -no growth / - sputum -no growth Influenza negative Endocrine: Hypothyroidism Diabetes mellitus - Currently on Levoxyl 50 mg by mouth daily. -Glucose monitoring every 6 hours per ICU protocol -- SSI MSK: Osteoarthritis/osteoporosis Continue vitamin D 3 1000 units by mouth daily. PT evaluate and treat Access - Right IJ hemodialysis catheter day #3 - Left IJ CVL day #2 Prophylaxis: GI - Protonix DVT - SCD/heparin gtt as been discontinued Critical Care: The total critical care time was 35 minutes. Time to perform other separately billable procedures was not included in the critical care time. Denny Medellin MD Sep 21, 2016 15:34
[2016-09-21 15:36] LABS: HEMATOCRIT 31.9 % (39.0-51.0); REVIEW FLAG FINAL
[2016-09-21] MEDS: HYDROCORTISONE SOD SUCCINATE 100 MG VIAL IV PUSH SCH ×2 (15:44→22:09)
[2016-09-21] MEDS ORDERED: ALBUMIN HUMAN 25% 25 GM/100 ML BAGP IV ONE (16:00)
[2016-09-21] MEDS ORDERED: SODIUM CHLORID 0.9% 500 ML INJ 500 ML IV ONE (16:00)
--- NOTE | 2016-09-21 16:50 | PD.PROCEDR ---
Procedure Note Procedure DATE: 09/21/2016 ARTERIAL LINE PLACEMENT: Right femoral artery. Ultrasound-guided INDICATION: Hemodynamic access DESCRIPTION OF THE PROCEDURE The patient was placed in supine position. The skin was cleansed with Chloraprep. Additional barrier precautions included large sterile drape, sterile gloves, sterile gown, face mask, and hat. 1 % lidocaine was used for local anesthesia. Under direct ultrasound guidance and on initial attempt, the right femoral artery was accessed 2 cm below the inguinal ligament with an introducer needle. The guide wire was advanced. Using Seldinger technique a 20 Sinhala 12 cm femoral artery catheter was advanced to a depth of 12 centimeters. The guide wire was removed. The single port had return of bright red pulsatile blood and flushed easily with saline. The arterial line was secured with 2.0 silk. A sterile dressing with antibiotic disc was applied. ESTIMATED BLOOD LOSS: Minimal COMPLICATIONS: No apparent complications. Denny Medellin MD Sep 21, 2016 16:50
[2016-09-21] MEDS ORDERED: DIGOXIN 0.5 MG/2 ML VIAL IV PUSH ONE (17:00)
[2016-09-21] MEDS ORDERED: DILTIAZEM INJ 125 MG in SODIUM CHLORIDE 0.9% INJ 100 ML IV SCH (18:00)
[2016-09-21] MEDS: VASOPRESSIN INJ 40 UNITS in DEXTROSE 5% IN WATER 100ML INJ 98 ML IV SCH ×2 (18:05)
[2016-09-21 18:44] LABS: BLOOD GAS BASE EXCESS -4.9 mmol/L (-2-2); BLOOD GAS CARBOXYHEMOGLOBIN 0.8 % (0-4); BLOOD GAS HCO3 20 mmol/L (22-26); BLOOD GAS METHEMOGLOBIN 1.1 % (0-2); BLOOD GAS O2 HGB SATURATION 97 % (90-100); BLOOD GAS OXYGEN CONTENT 13.9 Vol % (12.0-20.0); BLOOD GAS PCO2 38 mmHg (38-42); BLOOD GAS PO2 153 mmHg (61-120); CRITICAL VALUE NO; OXYGEN DEVICE VENTILATOR; TEMP CORR TO 98.6
[2016-09-21 18:45] LABS: DRAW SITE ART LINE; FIO2 60 %; STAT NO
[2016-09-21 18:45] LABS: APTT (PATIENT) 41.4 SEC (24.3-30.1)
--- NOTE | 2016-09-21 19:44 | PD.PROCEDR ---
Procedure Note Procedure DATE: 09/21/2016 HEMODIALYSIS LINE PLACEMENT: Left femoral vein. Ultrasound-guided INDICATION: Hemodialysis access CONSENT Informed consent for procedure was obtained. DESCRIPTION OF THE PROCEDURE The patient was placed in supine position. The skin was cleansed with Chloraprep. Additional barrier precautions included large sterile drape, sterile gloves, sterile gown, face mask, and hat. 1 % lidocaine was used for local anesthesia. Under direct ultrasound guidance and on first attempt, the vein was accessed with an introducer needle. The guide wire was advanced and the tract was dilated using 2 dilators. Using Seldinger technique a 11.5 Japanese 20 cm hemodialysis catheter was advanced to a depth of 20 centimeters. The guide wire was removed. All ports had good return of dark venous blood and flushed easily with saline. The central line was secured with 2.0 silk. A sterile dressing with antibiotic disc was applied. ESTIMATED BLOOD LOSS: Minimal COMPLICATIONS: No apparent complications. Denny Medellin MD Sep 21, 2016 19:44
[2016-09-21] MEDS ORDERED: SODIUM CHLOR 0.9% 250 ML INJ 250 ML IV ONE (20:00)
[2016-09-21 21:29] LABS: BLOOD GAS BASE EXCESS -6.5 mmol/L (-2-2); BLOOD GAS CARBOXYHEMOGLOBIN 0.7 % (0-4); BLOOD GAS HCO3 19 mmol/L (22-26); BLOOD GAS METHEMOGLOBIN 1.1 % (0-2); BLOOD GAS O2 HGB SATURATION 90 % (90-100); BLOOD GAS OXYGEN CONTENT 13.1 Vol % (12.0-20.0); BLOOD GAS PCO2 44 mmHg (38-42); BLOOD GAS PO2 74 mmHg (61-120); BLOOD GAS TOTAL HGB 10.3 G/DL (12.0-16.0); CRITICAL VALUE YES; DRAW SITE ALINE; FIO2 60 %; OXYGEN DEVICE VENTILATOR; STAT NO; TEMP CORR TO 98.6; ULNAR PULSE PRESENT; VENT SETTINGS PRVC/R16/550/1.1/+10
[2016-09-21] MEDS: HEPARIN SODIUM - SQ 10,000 UNITS/ML VIAL SQ SCH (22:08)
[2016-09-21] MEDS: ATORVASTATIN 20 MG TAB PO SCH (22:08)
--- NOTE | 2016-09-21 22:45 | RADRPT ---
EXAM DATE/TIME: 09/21/2016 22:12 [facility] COMPARISON: CHEST SINGLE AP, September 20, 2016, 9:03. INDICATIONS : Evaluate for respiratory failure MEDICAL HISTORY : Diabetes mellitus type II. SURGICAL HISTORY : CABG. ENCOUNTER: Subsequent ACUITY: 2 days PAIN SCORE: Non-responsive. LOCATION: Bilateral chest FINDINGS: ET tube remains above the lissa with left jugular catheter in place a right jugular ca theter removed. There is a nasogastric tube through the midline into the stomach. Prior median sterno ruy cardiac surgery appreciated there vascular appears prominent and there is patchy bibasilar densi ty most suggestive of cardiac decompensation CHF CONCLUSION: Increased prominence of the vascularity inclusive of basilar interstitium suggesting progression of CHF Chai Echeverria MD on September 21, 2016 at 22:43 on September 21, 2016 at 22: Board Certified Radiologist. This report was verified electronically.
[2016-09-22] VITALS (19 sets, daily range): BP systolic 100–122; BP diastolic 54–65; PULSE 79–102; RESP 18–20; TEMP 96.4–97.8; O2SAT 92–97
[2016-09-22 02:47] LABS: BLOOD GAS VENOUS BASE EXCESS -12.6 mmol/L (-2-2); BLOOD GAS VENOUS HCO3 15 mmol/L (22-26); BLOOD GAS VENOUS O2 CONTENT 9.5 Vol % (9.0-17.0); BLOOD GAS VENOUS O2 HGB SAT 63 % (70-76); BLOOD GAS VENOUS PCO2 49 mmHg (44-48); BLOOD GAS VENOUS PO2 45 mmHg (35-40); BLOOD GAS VENOUS pH 7.12 (7.360-7.400); CRITICAL VALUE YES; OXYGEN DEVICE VENTILATOR; TEMP CORR TO 98.6
[2016-09-22 02:48] LABS: FIO2 60 %; VENT SETTINGS PRVC
[2016-09-22] MEDS ORDERED: SODIUM BICARBONATE 8.4% INJ 50 ML ONE (02:48)
[2016-09-22 02:49] LABS: DRAW SITE CENTRAL LINE; STAT YES
[2016-09-22] MEDS ORDERED: SODIUM BICARBONATE 8.4% SOLN 50 MEQ/50 ML VIAL IVP ONE (03:15)
[2016-09-22] MEDS: SODIUM BICARBONATE 8.4% INJ 150 MEQ in WATER STERILE FOR INJ 1,000 ML IV SCH (03:37)
[2016-09-22] MEDS: RESP: ALBUTEROL 2.5 MG/IPRATROPIUM 0.5 MG NEB (SCH) NEB ×4 (03:49→21:36)
[2016-09-22] MEDS: CHLORHEXIDINE GLUCONATE 2 % 1 PACK (2 CLOTHS) TOP SCH (05:30)
[2016-09-22] MEDS: PIPERACIL-TAZO 2.25 GM PREMIX 50 ML IV SCH ×3 (05:30→17:01)
[2016-09-22] MEDS: PROPOFOL 1000 MG/100 ML INJ 100 ML IV SCH ×2 (05:39→17:00)
[2016-09-22 05:49] LABS: HEMATOCRIT 32.4 % (39.0-51.0); MEAN CELL VOLUME 91.6 FL (80.0-100.0); MEAN CORPUSCULAR HEMOGLOBIN 30.7 PG (27.0-34.0); MEAN CORPUSCULAR HGB CONC 33.5 % (32.0-36.0); PLATELET COUNT 91 TH/MM3 (150-450); RED BLOOD COUNT 3.53 MIL/MM3 (4.50-5.90); RED CELL DISTRIBUTION WIDTH 15.7 % (11.6-17.2); WHITE BLOOD COUNT 10.9 TH/MM3 (4.0-11.0)
[2016-09-22 06:02] LABS: REVIEW FLAG FINAL
[2016-09-22 06:10] LABS: MAGNESIUM 2.4 MG/DL (1.5-2.5); POTASSIUM 5.5 MEQ/L (3.5-5.1)
[2016-09-22] MEDS ORDERED: SODIUM BICARBONATE 8.4% SOLN 50 MEQ/50 ML VIAL SLOW IVP ONE (06:45)
[2016-09-22] MEDS ORDERED: SODIUM POLYSTYRENE SULFONATE SUSP 15 GM/60 ML CUP TUBE ONE ×2 (06:45→08:00)
[2016-09-22] MEDS ORDERED: CALCIUM GLUCONATE 10% 1 GM/10 ML VIAL SLOW IVP ONE ×2 (06:45→08:00)
[2016-09-22] MEDS ORDERED: DEXTROSE 50% IN WATER 50 ML VIAL(D50) IV PUSH ONE ×2 (06:45→08:00)
[2016-09-22] MEDS ORDERED: INSULIN HUMAN REGULAR 1,000 UNITS/10 ML VIAL IV PUSH ONE ×2 (06:45→08:00)
[2016-09-22] MEDS: LEVOTHYROXINE SODIUM 50 MCG TAB PO SCH (06:55)
[2016-09-22] MEDS: HYDROCORTISONE SOD SUCCINATE 100 MG VIAL IV PUSH SCH ×2 (06:55→13:13)
--- NOTE | 2016-09-22 06:59 | RADRPT ---
EXAM DATE/TIME: 09/22/2016 05:00 [facility] COMPARISON: CHEST SINGLE AP, September 21, 2016, 22:12. INDICATIONS : Short of breath. MEDICAL HISTORY : Diabetes mellitus type II. SURGICAL HISTORY : CABG. ENCOUNTER: Subsequent ACUITY: 3 days PAIN SCORE: Non-responsive. LOCATION: Bilateral chest FINDINGS: Slight improvement in the pattern of mixed interstitial, alveolar infiltrates throughout both lungs. There is peribronchial thickening in the perihilar region and indistinctness of the central bronchop ulmonary markings. Mild blunting of the left costophrenic angle suggests a small left pleural effusi on. The heart is normal in size. CONCLUSION: Persistent, but slightly improved, infiltrates throughout both lungs. Probable small left pleural ef fusion. Cristino Mo MD on September 22, 2016 at 6:56 Board Certified Radiologist. This report was verified electronically.
[2016-09-22] MEDS: VASOPRESSIN INJ 40 UNITS in DEXTROSE 5% IN WATER 100ML INJ 98 ML IV SCH ×4 (07:59→21:24)
[2016-09-22] MEDS: PANTOPRAZOLE SODIUM 40 MG VIAL IV SCH (08:02)
[2016-09-22] MEDS: ASCORBIC ACID 500 MG TAB PO SCH (08:02)
[2016-09-22] MEDS: POLYETHYLENE GLYCOL 17 GM PKG PO SCH (08:02)
[2016-09-22] MEDS: CHOLECALCIFEROL (VIT D3) 1000 UNIT TAB PO SCH (08:03)
[2016-09-22] MEDS: CLOPIDOGREL 75 MG TAB PO SCH (08:03)
[2016-09-22] MEDS: SENNOSIDES 8.6 MG TAB PO SCH ×2 (08:03→21:00)
[2016-09-22] MEDS: AZITHROMYCIN INJ 500 MG in SODIUM CHLOR 0.9% 250 ML INJ 250 ML IV SCH (08:03)
[2016-09-22] MEDS: SODIUM CHLORIDE 0.9% FLUSH 5 ML FLUSH IV FLUSH SCH (08:04)
[2016-09-22] MEDS: ASPIRIN 81 MG CHEW TAB CHEW SCH (08:04)
[2016-09-22] MEDS: SODIUM CHLORIDE 0.9% FLUSH 5 ML FLUSH IVF SCH (08:04)
[2016-09-22] MEDS: FERROUS SULFATE 325 MG (65 MG ELEMENTAL IRON) TAB PO SCH (08:04)
[2016-09-22] MEDS: ARTIFICIAL TEARS OPTH SOLN 15 ML BTL EACH EYE SCH ×3 (08:04→17:01)
[2016-09-22] MEDS ORDERED: SODIUM CHLORID 0.9% 500 ML INJ 500 ML IV ONE (08:15)
[2016-09-22] MEDS ORDERED: GLYCERIN ADULT 2 GM SUPP RECTAL ONE (08:15)
[2016-09-22] MEDS ORDERED: ALBUMIN HUMAN 25% 25 GM/100 ML BAGP IV ONE (08:15)
--- NOTE | 2016-09-22 08:21 | HHI.CCPN ---
Subjective Remarks/Hospital Course This is a 86-year-old gentleman that presented to the ED with complaints of dyspnea, accompanied by a family member was later identified as his grandson. Patient was hypoxic in the triage, he was placed on nonrebreather initially. The patient also complained of having angina for several days. Initial troponin was 4.07. The patient's past medical history is significant for CHF, CAD, chronic kidney disease, single kidney. An ABG was obtained noted metabolic acidosis, with a bicarbonate of 10. The patient was placed on BiPAP and given 40 mg of Lasix. He subsequently diureses less than 500 cc. Nephrology consult was initiated per Dr. Alvarado, to Dr. Taylor for emergent dialysis. 2 amps of sodium bicarbonate was given. Critical care medicine was consulted for management and treatment. I placed a right IJ Vas-Cath in the emergency department, patient is pending dialysis. 09/19: Patient currently resting on BiPAP for respiratory rates in the high teens status post hemodialysis. Complaining of discomfort from SCDs. Chest pain is improved. Complaining of having only one "banana" with the past 3 days. No bowel movement 09/20: Tmax 100.9. Currently 99. Placed on BiPAP overnight due to increasing hypoxia. Respiratory rates in the low to mid 20s. Chest x-ray reveals worsening left lower lobe infiltrate. More somnolent at this AM. Will require intubation and central line placement. 09/21: Tmax 100.9 currently 99.1. Intubated yesterday due to increasing hypoxia. Currently essentially anuric. Increasing vasopressor requirements. Machine Operator Hop Worker notified family that prognosis very grim. Currently on 2 vasopressors and stress dose steroids. Oozing from hemodialysis catheter noted. Subjective 09/22: Afebrile. Overnight, decreasing vasopressor requirements/start on bicarbonate drip but my partner due to acidosis. Recheck ABG currently pending. Stable on vasopressin/Jose-Synephrine/levophed. No BM. Tolerating tube feeding at goal Objective Vital Signs Date Time Temp Pulse Resp B/P Pulse Ox O2 Delivery O2 Flow Rate FiO2 09/22/16 06:00 101 111/58 09/22/16 04:21 96 60 09/22/16 04:00 97.6 18 09/21/16 19:00 Mechanical Ventilator 09/19/16 21:00 6.00 Intake and Output 1/7/17 1/7/17 1/8/17 08:00 16:00 00:00 Intake Total 872 ml 1365 ml 1256 ml Output Total 40 ml 28 ml 410.0 ml Balance 832 ml 1337 ml 846.0 ml Result Diagram: 09/22/16 0500 09/22/16 0500 Other Results Microbiology Date/Time Procedure Status Source Growth 09/19/16 21:45 Gram Stain - Final Complete Sputum Expectorated Sputum 09/19/16 21:45 Sputum Culture - Final Complete Sputum Expectorated Sputum HEAVY GROWTH NORMAL RESPIRATORY DANK 09/19/16 08:45 Aerobic Blood Culture - Preliminary Resulted Blood Peripheral NO GROWTH IN 2 DAYS 09/19/16 08:45 Anaerobic Blood Culture - Preliminary Resulted Blood Peripheral NO GROWTH IN 2 DAYS Imaging Last Impressions Chest X-Ray 09/22/16 0600 Signed Impressions: Service Date/Time: Thursday, September 22, 2016 05:00 - CONCLUSION: Persistent, but slightly improved, infiltrates throughout both lungs. Probable small left pleural effusion. Cristino Mo MD Renal Ultrasound 09/19/16 0000 Signed Impressions: Service Date/Time: September 12:08 - CONCLUSION: 1. Left nephrectomy. 2. Right kidney slightly echogenic which can be seen with medical renal disease. Shahbaz Noriega MD Objective Remarks GENERAL: 86-year-old critically ill-appearing obese male, appears stated age resting in bed orotracheally intubated in no acute distress. SKIN: Warm and dry. No rash HEAD: Atraumatic. Normocephalic. EYES: Status post cataract changes bilaterally. No scleral icterus. No injection or drainage. ENT: No nasal bleeding or discharge. Mucous membranes pink and moist. NECK: Trachea midline. No JVD noted. Left IJ CVL clean dry and intact CARDIOVASCULAR: Irregular. Tachycardia. S1, S2. No S4. 2/6 murmur apex for mitral regurg RESPIRATORY: Few crackles appreciated in the left lower lobe. No wheezing appreciated GASTROINTESTINAL: Abdomen soft, protuberant and non-tender,. Hypoactive bowel sounds MUSCULOSKELETAL: Extremities with 1+ pitting edema below the knees bilaterally. NEUROLOGICAL: Positive gag. Positive corneal reflex. Withdraws to pain in all 4 extremities. Urinary Catheter: Yes Assessment to: Continue Goodwin insert reason: Prolonged Immobilization Vascular Central Line Catheter: Yes Assessment to: Continue Date of Insertion: Sep 20, 2016 Line: Central Venous Catheter Side: Left Location: Internal, Jugular A/P Assessment and Plan Neurologic/Psych: Blindness left eye- retinal detachment - Patient is on propofol at 20 mics grams per kilogram per hour/fentanyl drips at 100 was an hour for sedation/analgesia while intubated Goal of RASS -2 Daily sedation vacation Respiratory: Acute respiratory failure secondary to community acquired pneumonia/acute diastolic heart failure -PRVC 24/tidal volume around 550, I time 1.2, PEEP 5, FiO2 60% -Duo nebs every 6 hours and as needed -Ventilator bundle -Follow-up chest x-ray in a.m. revealed stable left lower lobe infiltrate repeat in a.m. -See infectious disease for antibiotics Cardiovascular: NSTEMI Angina/unstable Acute on chronic systolic and diastolic congestive heart failure Cardiomegaly Previous CABG vessels with Dr. Perrin History NSTEMI 2008 - refused cardiac catheterization CAD Moderate to severe mitral regurgitation/moderate TR Hypertension Left bundle branch block Atrial fibrillation - Currently on Jose-Synephrine at 220 g a minute/norepinephrine at 4 mcg/kg per minute, vasopressin 0.04 units/min to maintain MEP greater than 65 Stress dose Solu-Cortef 100 mg IV every 8 hours. Wean over the next week -Cardiology consult- Dr. Rosado. No indications for cardiac catheterization at this time per report Dr. Rosado discussed with family. Recommended palliative care/hospice as with his conversation with this patient, he did not want these sorts aggressive care is to be performed -Continue monitoring serial troponins initial 4.09. Trending upward peaked at 20 currently 16 -ECHO 01/02/16 EF 4045 percent grade 1 diastolic dysfunction. Diffuse hypokinesis. MV-moderate to severe regurgitation,TV-mild to moderate regurgitation.PASP 55mmHG Repeat echo this hospitalization revealed EF 30-35%. Severe MR. CAL 50 mmHg -EKG SR, LBBB , unchanged per Dr. Aggarwal building construction supervisor insect control aide as discussed with Dr. Alvarado, the patient is not a candidate for cardiac catheterization -Currently in atrial fibrillation. Cardizem drip for rate control less than 120 Heparin drip discontinued secondary to bleeding -Continue ASA 81 mg daily, Plavix 75 mg daily - Resume atorvastatin 20 mg daily for dyslipidemia. LFTs within normal limits. - Patient is on enalapril 20 mg daily. This is held in light of acute kidney injury. - Converting metoprolol 25 mg twice a day IV. See above. Currently holding Norvasc 5 mg per day light of hypotension along with Imdur 30 mg by mouth daily - Currently holding Lasix 40 mg by mouth daily. Currently on intermittent hemodialysis. 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 -Vas-Cath placement 09/19/15-emergent hemodialysis larry been completed. -2 L on 09/19 and 800 cc on 09/20. - Nephrology consulted. Will reassess for hemodialysis today - Avoid nephrotoxic drugs. Specifically sp inhibitors have been held -- Strict I/Os - Follow BMP in a.m. -Renal ultrasound 09/19 revealed right kidney with medical renal disease/absent left kidney. Negative urine eosinophils. FEN Hyperkalemia Hyponatremia Hyperphosphatemia Receiving potassium hyperkalemia protocol including D50/insulin/calcium/ bicarbonate and Kayexalate Recheck potassium in 3 hours PhosLo 667 mg 3 times a day for hyperphosphatemia. Recheck in a.m. Replace electrolytes as clinically indicated. Currently on free water with 3 ampules sodium bicarbonate 150 cc an hour. Recheck/reassess after hemodialysis GI: Nepro currently at goal 55 cc an hour Protonix for GI prophylaxis Colace/Senokot twice a day and daily MiraLAX for bowel regimen History of bladder cancer 3 Goodwin for accurate I's and O's in a critically ill patient. Heme: Normocytic anemia Thrombocytopenia Patient is on iron sulfate 325 mg by mouth daily. This is been resumed. Follow-up CBC in AM. ID: Likely community-acquired pneumonia Day 4 Zosyn/Zithromax Pertinent cultures 1/5 - blood cultures 2 -no growth /5 - urine culture -no growth /5 - sputum -no growth Influenza negative Endocrine: Hypothyroidism Diabetes mellitus - Currently on Levoxyl 50 mg by mouth daily. -Glucose monitoring every 6 hours per ICU protocol -- SSI MSK: Osteoarthritis/osteoporosis Continue vitamin D 3 1000 units by mouth daily. PT evaluate and treat Access -Left femoral hemodialysis catheter day #2 - Left IJ CVL day #3 - Right femoral arterial line day #2 Prophylaxis: GI - Protonix DVT - SCD/heparin subcutaneous Critical Care: The total critical care time was 35 minutes. Time to perform other separately billable procedures was not included in the critical care time. Discuss with family at length yesterday. Spontaneous breathing trials sedation vacation. Very poor prognosis. Palliative care consulted Denny Medellin MD Sep 22, 2016 08:21
[2016-09-22] MEDS: CHLORHEXIDINE 0.12% (ORAL KIT) 15 ML CUP MT SCH (08:29)
[2016-09-22] MEDS: SENNOSIDES SYRUP 8.8 MG/5 ML CUP PO/TUBE SCH (08:48)
[2016-09-22] MEDS: DOCUSATE SODIUM 100 MG CAP PO SCH ×2 (08:49→21:00)
[2016-09-22] MEDS: POLYETHYLENE GLYCOL 17 GM PKG TUBE SCH (09:00)
[2016-09-22] MEDS: LACTULOSE SYRUP 20 GM/30 ML CUP PO SCH (09:14)
[2016-09-22] MEDS: HEPARIN SODIUM - SQ 10,000 UNITS/ML VIAL SQ SCH (09:14)
[2016-09-22] MEDS: DOCUSATE SODIUM 100 MG/10 ML UDC PO SCH (09:22)
[2016-09-22 09:25] LABS: BLOOD GAS BASE EXCESS -8.2 mmol/L (-2-2); BLOOD GAS CARBOXYHEMOGLOBIN 0.7 % (0-4); BLOOD GAS HCO3 17 mmol/L (22-26); BLOOD GAS METHEMOGLOBIN 1.2 % (0-2); BLOOD GAS O2 HGB SATURATION 90 % (90-100); BLOOD GAS OXYGEN CONTENT 12.4 Vol % (12.0-20.0); BLOOD GAS PCO2 33 mmHg (38-42); BLOOD GAS PO2 69 mmHg (61-120); BLOOD GAS TOTAL HGB 9.8 G/DL (12.0-16.0); CRITICAL VALUE NO; FIO2 60 %; OXYGEN DEVICE VENTILATOR; TEMP CORR TO 98.6; VENT SETTINGS PRVC/AC
[2016-09-22] MEDS: CALCIUM ACETATE 667 MG CAP PO SCH ×3 (09:25→17:00)
[2016-09-22 09:26] LABS: DRAW SITE ART LINE; STAT NO
[2016-09-22] MEDS ORDERED: NOREPINEPHRINE-DEXTROSE DRIP 250 ML IV SCH (09:30)
[2016-09-22 09:44] LABS: CRITICAL VALUE YES; OXYGEN DEVICE VENTILATOR; TEMP CORR TO 98.6
[2016-09-22 09:45] LABS: DRAW SITE CENTRAL LINE; FIO2 60 %; STAT NO; VENT SETTINGS PRVC/AC
[2016-09-22] MEDS ORDERED: DOBUTamine INJ 1,000 MG in DEXTROSE 5% IN WATER INJ 170 ML IV SCH ×2 (09:45)
[2016-09-22] MEDS: EPINEPHrine (1:1000) INJ 2 MG in DEXTROSE 5% IN WATER INJ 248 ML IV SCH ×6 (10:09→21:24)
[2016-09-22] MEDS: fentaNYL DRIP 250 ML IV SCH (10:09)
--- NOTE | 2016-09-22 11:04 | HHI.NPPN ---
Subjective General Problems: Anemia, Heart Disease, Hypotension Renal Failure: Chronic, Stage IV History of Present Illness 86-year-old male known to me from before with a past medical history of stage IV chronic kidney disease, history of ischemic heart disease, congestive heart failure, history of nephrectomy with single kidney, and hypertension who came to the hospital with complaint of chest pain and worsening shortness of breath. I was called to see the patient because of worsening renal function and metabolic acidosis requiring dialysis. Additional Remarks New Vascath placed in the Femoral vein. He is on 4 different pressors, so hemodynamically unstable. Renal function is worse. Objective Data Data 09/21/16 09/22/16 19:00 07:00 Intake Total 1365 ml 2177 ml Output Total 28 ml 410.0 ml Balance 1337 ml 1767.0 ml IV Total 977 ml 1877 ml Tube Feeding 338 ml 300 ml Other 50 ml Output Urine Total 28 ml 10 ml Gastric Drainage Total 200 ml Tube Feeding Residual Discard 200.0 ml Vital Signs Date Time Temp Pulse Resp B/P Pulse Ox O2 Delivery O2 Flow Rate FiO2 09/22/16 10:00 60 09/22/16 10:00 97.1 90 18 122/65 95 09/22/16 10:00 90 09/22/16 08:13 95 60 09/22/16 08:00 98 09/22/16 07:00 94 Mechanical Ventilator 60 09/22/16 06:00 101 111/58 09/22/16 06:00 101 09/22/16 04:21 96 60 09/22/16 04:00 97.6 89 18 97 106/54 09/22/16 04:00 60 09/22/16 04:00 89 09/22/16 02:00 79 09/22/16 00:09 94 60 09/22/16 00:00 97.8 92 18 93 106/60 09/22/16 00:00 92 09/22/16 00:00 60 09/21/16 22:00 104 09/21/16 20:04 95 60 09/21/16 20:00 110 124/68 09/21/16 20:00 60 09/21/16 20:00 99.3 110 20 94 124/68 09/21/16 19:00 94 Mechanical Ventilator 60 09/21/16 18:37 132 140/78 09/21/16 18:00 130 09/21/16 17:36 99.1 124 17 142/81 97 09/21/16 17:21 99.1 116 17 137/68 97 09/21/16 17:06 100.5 126 18 143/78 97 09/21/16 17:00 136 157/73 09/21/16 16:51 100.6 104 18 124/73 98 09/21/16 16:00 100.6 104 18 98 124/73 09/21/16 16:00 104 09/21/16 16:00 60 09/21/16 15:30 97 60 09/21/16 14:00 118 09/21/16 12:14 94 60 09/21/16 12:00 112 09/21/16 12:00 60 09/21/16 12:00 99.1 103 16 100/54 93 -: 09/22/16 0500 09/22/16 0500 Physical Exam General Appearance: Well Developed, Well Nourished Eyes Eye Exam: Pupils Equal Throat Throat Exam: Oral Mucosa [place] & Moist Neck Neck Exam: Neck Supple Pulmonary Resp Exam: Crackles, Rhonchi, Decreased Bases, Diminished Breath Sounds Cardiology CV Exam: Regular, Normal Sinus Rhythm Gastrointestinal/Abdomen GI Exam: Soft Extremeties Extremities Exam: Trace Edema, Dependent Edema Neurologic Neuro Exam: Unresponsive Assessment/Plan Assessment Summary: CHF, Hypotension, CKD Stage IV Problem List: (1) Acute renal failure Plan: Acute on chronic kidney disease Oliguric. He is hemodynamically unstable. Discussed with Dr. Medellin, he will not be able to tolerate HD. Dr. Medellin is going to speak with family at around noon. If family wants to continue aggressive care, CRRT is an option, but overall his prognosis is very poor. (2) Non-STEMI (non-ST elevated myocardial infarction) Plan: cardiology following. prognosis is poor. (3) Type 2 diabetes mellitus Plan: insulin coverage, maintain blood glucose between 140 and 180. Problem Qualifiers (1) Acute renal failure: Qualified Code: N17.9 - Acute renal failure, unspecified acute renal failure type Jamel Gaytan MD Sep 22, 2016 11:04
[2016-09-22 13:16] LABS: INTERNATIONAL NORMALIZED RATIO 1.6 RATIO; PROTHROMBIN TIME - PATIENT 18.1 SEC (9.8-11.6)
[2016-09-22] MEDS: PHENYLEPHRINE INJ 160 MG in DEXTROSE 5% IN WATE 500 ML INJ 484 ML IV SCH ×4 (13:20→21:24)
[2016-09-22 13:31] LABS: INDIRECT BILIRUBIN 0.6 MG/DL (0.0-0.8); TOTAL BILIRUBIN ADULT 2.4 MG/DL (0.2-1.0)
[2016-09-22 14:37] LABS: POTASSIUM 5.2 MEQ/L (3.5-5.1)
[2016-09-22 15:02] LABS: BLOOD GAS VENOUS BASE EXCESS -11.6 mmol/L (-2-2); BLOOD GAS VENOUS HCO3 15 mmol/L (22-26); BLOOD GAS VENOUS O2 CONTENT 7.8 Vol % (9.0-17.0); BLOOD GAS VENOUS O2 HGB SAT 56 % (70-76); BLOOD GAS VENOUS PCO2 40 mmHg (44-48); BLOOD GAS VENOUS PO2 39 mmHg (35-40); TEMP CORR TO 98.6
[2016-09-22 15:03] LABS: CRITICAL VALUE YES; OXYGEN DEVICE VENTILATOR
[2016-09-22 15:04] LABS: CALCIUM-PROTEIN CORRECTED 7.9 MG/DL (8.5-10.1)
[2016-09-22 15:04] LABS: DRAW SITE CENTRAL LINE; FIO2 60 %; STAT NO; VENT SETTINGS PRVC/AC
[2016-09-22 15:38] LABS: BLOOD GAS VENOUS pH 7.24 (7.360-7.400)
[2016-09-22 15:39] LABS: BLOOD GAS CARBOXYHEMOGLOBIN 0.5 % (0-4); BLOOD GAS VENOUS BASE EXCESS -7.8 mmol/L (-2-2); BLOOD GAS VENOUS HCO3 18 mmol/L (22-26); BLOOD GAS VENOUS PCO2 44 mmHg (44-48); BLOOD GAS VENOUS PO2 32 mmHg (35-40)
[2016-09-22 15:40] LABS: BLOOD GAS METHEMOGLOBIN 1.2 % (0-2); BLOOD GAS VENOUS O2 CONTENT 6.2 Vol % (9.0-17.0); BLOOD GAS VENOUS O2 HGB SAT 47 % (70-76)
[2016-09-22] MEDS: ATORVASTATIN 20 MG TAB PO SCH (21:00)
[2016-09-23] VITALS (13 sets, daily range): BP systolic 84–104; BP diastolic 40–51; PULSE 82–102; RESP 20; TEMP 96.9–101.3; O2SAT 0–99
[2016-09-23] MEDS: CHLORHEXIDINE 0.12% (ORAL KIT) 15 ML CUP MT SCH ×2 (00:25→08:00)
[2016-09-23] MEDS: SODIUM CHLORIDE 0.9% FLUSH 5 ML FLUSH IV FLUSH SCH ×2 (00:25→09:01)
[2016-09-23] MEDS: DOCUSATE SODIUM 100 MG/10 ML UDC PO SCH ×2 (00:25→09:01)
[2016-09-23] MEDS: POLYETHYLENE GLYCOL 17 GM PKG TUBE SCH ×2 (00:26→09:00)
[2016-09-23] MEDS: HEPARIN SODIUM - SQ 10,000 UNITS/ML VIAL SQ SCH ×3 (00:26→09:04)
[2016-09-23] MEDS: SENNOSIDES SYRUP 8.8 MG/5 ML CUP PO/TUBE SCH ×2 (00:26→09:01)
[2016-09-23] MEDS: HYDROCORTISONE SOD SUCCINATE 100 MG VIAL IV PUSH SCH ×3 (00:27→13:07)
[2016-09-23] MEDS: PIPERACIL-TAZO 2.25 GM PREMIX 50 ML IV SCH ×2 (02:00→10:04)
[2016-09-23] MEDS: SODIUM BICARBONATE 8.4% INJ 150 MEQ in WATER STERILE FOR INJ 1,000 ML IV SCH ×2 (03:00→13:16)
[2016-09-23] MEDS: CHLORHEXIDINE GLUCONATE 2 % 1 PACK (2 CLOTHS) TOP SCH (04:00)
[2016-09-23] MEDS: RESP: ALBUTEROL 2.5 MG/IPRATROPIUM 0.5 MG NEB (SCH) NEB ×2 (04:06→08:38)
[2016-09-23 04:38] LABS: BLOOD GAS BASE EXCESS -12.3 mmol/L (-2-2); BLOOD GAS CARBOXYHEMOGLOBIN 0.4 % (0-4); BLOOD GAS HCO3 13 mmol/L (22-26); BLOOD GAS METHEMOGLOBIN 1.6 % (0-2); BLOOD GAS O2 HGB SATURATION 93 % (90-100); BLOOD GAS OXYGEN CONTENT 12.2 Vol % (12.0-20.0); BLOOD GAS PCO2 27 mmHg (38-42); BLOOD GAS PO2 94 mmHg (61-120); BLOOD GAS TOTAL HGB 9.2 G/DL (12.0-16.0); TEMP CORR TO 98.6
[2016-09-23 04:39] LABS: CRITICAL VALUE YES; OXYGEN DEVICE VENTILATOR
[2016-09-23 04:40] LABS: DRAW SITE ART LINE; FIO2 60 %; STAT NO; VENT SETTINGS PRVC/AC
[2016-09-23 04:58] LABS: AUTOMATED NEUTROPHIL # 14.2 TH/MM3 (1.8-7.7); BASOPHIL % 0.1 % (0.0-2.0); HEMATOCRIT 28.3 % (39.0-51.0); LYMPH % 2.7 % (9.0-44.0); LYMPHOCYTE # 0.4 TH/MM3 (1.0-4.8); MEAN CELL VOLUME 90.8 FL (80.0-100.0); MEAN CORPUSCULAR HEMOGLOBIN 30.2 PG (27.0-34.0); MEAN CORPUSCULAR HGB CONC 33.2 % (32.0-36.0); MONO % 6.8 % (0.0-8.0); NEUT % 90.4 % (16.0-70.0); PLATELET COUNT 67 TH/MM3 (150-450); RED BLOOD COUNT 3.12 MIL/MM3 (4.50-5.90); WHITE BLOOD COUNT 15.8 TH/MM3 (4.0-11.0)
[2016-09-23 05:02] LABS: HEMO FLAGS AUTO DIFF
[2016-09-23] MEDS: LEVOTHYROXINE SODIUM 50 MCG TAB PO SCH (06:00)
[2016-09-23 07:07] LABS: MAGNESIUM 2.3 MG/DL (1.5-2.5)
[2016-09-23 07:08] LABS: BICARBONATE 15.2 MEQ/L (21.0-32.0); POTASSIUM 5.9 MEQ/L (3.5-5.1); TOTAL BILIRUBIN ADULT 2.8 MG/DL (0.2-1.0)
[2016-09-23 07:11] LABS: CALCIUM-PROTEIN CORRECTED 6.9 MG/DL (8.5-10.1)
[2016-09-23 07:52] LABS: BANDS 10 % (0-6); METAMYELOCYTES 1 % (0-1); NEUTROPHIL # MANUAL DIFF 14.2 TH/MM3 (1.8-7.7); POLYS (SEG NEUTROPHILS) 79 % (16-70); WBC DIFF SAMPLE 100
[2016-09-23 07:53] LABS: ACANTHOCYTES OCC (NORMAL); OVALOCYTES 1+ (NORMAL); PLATELET ESTIMATE SMEAR LOW (NORMAL); PLATELET MORPHOLOGY NORMAL (NORMAL); SCAN/DIFF FINAL DIFF MANUAL
[2016-09-23] MEDS: LACTULOSE SYRUP 20 GM/30 ML CUP PO SCH (08:04)
[2016-09-23] MEDS: fentaNYL DRIP 250 ML IV SCH (08:08)
[2016-09-23] MEDS: PROPOFOL 1000 MG/100 ML INJ 100 ML IV SCH (08:08)
[2016-09-23] MEDS: CLOPIDOGREL 75 MG TAB PO SCH ×2 (08:08→09:00)
[2016-09-23] MEDS: ARTIFICIAL TEARS OPTH SOLN 15 ML BTL EACH EYE SCH ×2 (08:14→13:00)
[2016-09-23] MEDS ORDERED: SODIUM POLYSTYRENE SULFONATE SUSP 15 GM/60 ML CUP PO ONE (08:15)
[2016-09-23] MEDS ORDERED: DEXTROSE 50% IN WATER 50 ML VIAL(D50) IV PUSH ONE (08:15)
[2016-09-23] MEDS ORDERED: CALCIUM GLUCONATE 10% 1 GM/10 ML VIAL SLOW IVP ONE (08:15)
[2016-09-23] MEDS: AZITHROMYCIN INJ 500 MG in SODIUM CHLOR 0.9% 250 ML INJ 250 ML IV SCH (08:15)
[2016-09-23] MEDS ORDERED: SODIUM BICARBONATE 8.4% SOLN 50 MEQ/50 ML VIAL SLOW IVP ONE (08:15)
[2016-09-23] MEDS: ASPIRIN 81 MG CHEW TAB CHEW SCH (08:24)
[2016-09-23] MEDS ORDERED: INSULIN HUMAN REGULAR 1,000 UNITS/10 ML VIAL IV PUSH ONE (08:30)
--- NOTE | 2016-09-23 08:54 | HHI.CCPN ---
Subjective Remarks/Hospital Course This is a 86-year-old gentleman that presented to the ED with complaints of dyspnea, accompanied by a family member was later identified as his grandson. Patient was hypoxic in the triage, he was placed on nonrebreather initially. The patient also complained of having angina for several days. Initial troponin was 4.07. The patient's past medical history is significant for CHF, CAD, chronic kidney disease, single kidney. An ABG was obtained noted metabolic acidosis, with a bicarbonate of 10. The patient was placed on BiPAP and given 40 mg of Lasix. He subsequently diureses less than 500 cc. Nephrology consult was initiated per Dr. Alvarado, to Dr. Taylor for emergent dialysis. 2 amps of sodium bicarbonate was given. Critical care medicine was consulted for management and treatment. I placed a right IJ Vas-Cath in the emergency department, patient is pending dialysis. 09/19: Patient currently resting on BiPAP for respiratory rates in the high teens status post hemodialysis. Complaining of discomfort from SCDs. Chest pain is improved. Complaining of having only one "banana" with the past 3 days. No bowel movement 09/20: Tmax 100.9. Currently 99. Placed on BiPAP overnight due to increasing hypoxia. Respiratory rates in the low to mid 20s. Chest x-ray reveals worsening left lower lobe infiltrate. More somnolent at this AM. Will require intubation and central line placement. 09/21: Tmax 100.9 currently 99.1. Intubated yesterday due to increasing hypoxia. Currently essentially anuric. Increasing vasopressor requirements. Fan Engine Engineer notified family that prognosis very grim. Currently on 2 vasopressors and stress dose steroids. Oozing from hemodialysis catheter noted. 09/22: Afebrile. Overnight, decreasing vasopressor requirements/start on bicarbonate drip but my partner due to acidosis. Recheck ABG currently pending. Stable on vasopressin/Jose-Synephrine/levophed. No BM. Tolerating tube feeding at goal Subjective 09/23: Afebrile. Patient made alternate code intubation only yesterday. Vasopressor requirements continued to increase. Actively dying. Objective Vital Signs Date Time Temp Pulse Resp B/P Pulse Ox O2 Delivery O2 Flow Rate FiO2 09/23/16 07:23 96 60 09/23/16 07:00 Mechanical Ventilator 09/23/16 06:00 102 1/9/17 04:00 98.7 20 98/40 09/19/16 21:00 6.00 Intake and Output 09/22/16 09/22/16 09/23/16 08:00 16:00 00:00 Intake Total 921 ml 2301 ml 1565 ml Output Total 0 ml 0 ml Balance 921 ml 2301 ml 1565 ml Result Diagram: 09/23/16 0430 09/23/16 0430 Other Results Microbiology Date/Time Procedure Status Source Growth 09/19/16 21:45 Gram Stain - Final Complete Sputum Expectorated Sputum 09/19/16 21:45 Sputum Culture - Final Complete Sputum Expectorated Sputum HEAVY GROWTH NORMAL RESPIRATORY DANK 09/19/16 08:45 Aerobic Blood Culture - Preliminary Resulted Blood Peripheral NO GROWTH IN 3 DAYS 09/19/16 08:45 Anaerobic Blood Culture - Preliminary Resulted Blood Peripheral NO GROWTH IN 3 DAYS Imaging Last Impressions Chest X-Ray 09/22/16 0600 Signed Impressions: Service Date/Time: Thursday, September 22, 2016 05:00 - CONCLUSION: Persistent, but slightly improved, infiltrates throughout both lungs. Probable small left pleural effusion. Cristino Mo MD Renal Ultrasound 09/19/16 0000 Signed Impressions: Service Date/Time: September 12:08 - CONCLUSION: 1. Left nephrectomy. 2. Right kidney slightly echogenic which can be seen with medical renal disease. Shahbaz Noriega MD Objective Remarks GENERAL: 86-year-old critically ill-appearing obese male, appears stated age resting in bed orotracheally intubated in no acute distress. SKIN: Warm and dry. No rash HEAD: Atraumatic. Normocephalic. EYES: Status post cataract changes bilaterally. No scleral icterus. No injection or drainage. ENT: No nasal bleeding or discharge. Mucous membranes pink and moist. NECK: Trachea midline. No JVD noted. Left IJ CVL clean dry and intact CARDIOVASCULAR: IRR. S1, S2. No S4. 2/6 murmur apex for mitral regurg RESPIRATORY: Few crackles appreciated in the left lower lobe. No wheezing appreciated GASTROINTESTINAL: Abdomen soft, protuberant and non-tender,. Hypoactive bowel sounds MUSCULOSKELETAL: Extremities with 2+ pitting edema below the knees bilaterally. NEUROLOGICAL: Positive gag. Positive corneal reflex. Withdraws to pain in all 4 extremities. Urinary Catheter: Yes Assessment to: Continue Goodwin insert reason: Prolonged Immobilization Vascular Central Line Catheter: Yes Assessment to: Continue Date of Insertion: Sep 20, 2016 Line: Central Venous Catheter Side: Left Location: Internal, Jugular A/P Assessment and Plan Neurologic/Psych: Blindness left eye- retinal detachment - Patient is on propofol at 20 mics grams per kilogram per hour/fentanyl drips at 100 was an hour for sedation/analgesia while intubated Goal of RASS -2 Daily sedation vacation when clinically indicated Respiratory: Acute respiratory failure secondary to community acquired pneumonia/acute diastolic heart failure -PRVC 24/tidal volume around 550, I time 1.2, PEEP 5, FiO2 60% -Duo nebs every 6 hours and as needed -Ventilator bundle -Follow-up chest x-ray in a.m. revealed stable left lower lobe infiltrate repeat in a.m. -See infectious disease for antibiotics Cardiovascular: NSTEMI Angina/unstable Acute on chronic systolic and diastolic congestive heart failure Cardiomegaly Previous CABG vessels with Dr. Perrin History NSTEMI 2008 - refused cardiac catheterization CAD Moderate to severe mitral regurgitation/moderate TR Hypertension Left bundle branch block Atrial fibrillation Lactic acidosis - Currently on Jose-Synephrine at 220 g a minute/norepinephrine at 10 mcg/kg per minute, vasopressin 0.04 units/min and epinephrine drip 15 g a minute to maintain MEP greater than 65 Stress dose Solu-Cortef 100 mg IV every 8 hours. Wean over the next week -Cardiology consult- Dr. Rosado. No indications for cardiac catheterization at this time per report Dr. Rosado discussed with family. Recommended palliative care/hospice as with his conversation with this patient, he did not want these sorts aggressive care is to be performed -Continue monitoring serial troponins initial 4.09. Trending upward peaked at 20 currently around 20 -ECHO 01/02/16 EF 4045 percent grade 1 diastolic dysfunction. Diffuse hypokinesis. MV-moderate to severe regurgitation,TV-mild to moderate regurgitation.PASP 55mmHG Repeat echo this hospitalization revealed EF 30-35%. Severe MR. CAL 50 mmHg -EKG SR, LBBB , unchanged per Dr. Aggarwal field education director capsule inspector as discussed with Dr. Alvarado, the patient is not a candidate for cardiac catheterization -Currently in atrial fibrillation. Cardizem drip for rate control less than 120 Heparin drip discontinued secondary to bleeding -Continue ASA 81 mg daily, Plavix 75 mg daily - Resume atorvastatin 20 mg daily for dyslipidemia. LFTs within normal limits. - Patient is on enalapril 20 mg daily. This is held in light of acute kidney injury. - Converting metoprolol 25 mg twice a day IV. See above. Currently holding Norvasc 5 mg per day light of hypotension along with Imdur 30 mg by mouth daily - Currently holding Lasix 40 mg by mouth daily. Currently off hemodialysis. 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 -Vas-Cath placement 09/19/15-emergent hemodialysis larry been completed. -2 L on 09/19 and 800 cc on 09/20. - Nephrology consulted. Will reassess for hemodialysis today - Avoid nephrotoxic drugs. Specifically sp inhibitors have been held -- Strict I/Os - Follow BMP in a.m. -Renal ultrasound 09/19 revealed right kidney with medical renal disease/absent left kidney. Negative urine eosinophils. FEN Hyperkalemia Hyponatremia Hyperphosphatemia Receiving potassium hyperkalemia protocol including D50/insulin/calcium/ bicarbonate and Kayexalate Recheck potassium in 3 hours PhosLo 667 mg 3 times a day for hyperphosphatemia. Recheck in a.m. Replace electrolytes as clinically indicated. Currently on free water with 3 ampules sodium bicarbonate 150 cc an hour. 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 Nepro currently at goal 55 cc an hour Protonix for GI prophylaxis Colace/Senokot twice a day and daily MiraLAX for bowel regimen History of bladder cancer 3 Goodwin for accurate I's and O's in a critically ill patient. Heme: Normocytic anemia Thrombocytopenia Leukocytosis Patient is on iron sulfate 325 mg by mouth daily. This is been resumed. Follow-up CBC in AM. ID: Likely community-acquired pneumonia Day 5 Zosyn/Zithromax Pertinent cultures 09/19 - blood cultures 2 -no growth 09/19 - urine culture -no growth 09/19 - sputum -no growth Influenza negative Endocrine: Hypothyroidism Diabetes mellitus - Currently on Levoxyl 50 mg by mouth daily. -Glucose monitoring every 6 hours per ICU protocol -- SSI MSK: Osteoarthritis/osteoporosis Continue vitamin D 3 1000 units by mouth daily. PT evaluate and treat Access -Left femoral hemodialysis catheter day #2 - Left IJ CVL day #3 - Right femoral arterial line day #2 Prophylaxis: GI - Protonix DVT - SCD/heparin subcutaneous Critical Care: The total critical care time was 35 minutes. Time to perform other separately billable procedures was not included in the critical care time. Discuss with family at length yesterday. Altering code. Intubation only. Patient is actively dying. Very poor prognosis. Palliative care consulted. No hemodialysis indicated. Denny Medellin MD Sep 23, 2016 08:54
[2016-09-23] MEDS: PANTOPRAZOLE SODIUM 40 MG VIAL IV SCH (09:00)
[2016-09-23] MEDS: DOCUSATE SODIUM 100 MG CAP PO SCH (09:00)
[2016-09-23] MEDS: SENNOSIDES 8.6 MG TAB PO SCH (09:00)
[2016-09-23] MEDS: CHOLECALCIFEROL (VIT D3) 1000 UNIT TAB PO SCH (09:01)
[2016-09-23] MEDS: SODIUM CHLORIDE 0.9% FLUSH 5 ML FLUSH IVF SCH (09:01)
[2016-09-23] MEDS: POLYETHYLENE GLYCOL 17 GM PKG PO SCH (09:02)
[2016-09-23] MEDS: ASCORBIC ACID 500 MG TAB PO SCH (09:02)
[2016-09-23] MEDS: FERROUS SULFATE 325 MG (65 MG ELEMENTAL IRON) TAB PO SCH (09:02)
[2016-09-23] MEDS: CALCIUM ACETATE 667 MG CAP PO SCH ×2 (09:02→13:07)
[2016-09-23] MEDS: EPINEPHrine (1:1000) INJ 2 MG in DEXTROSE 5% IN WATER INJ 248 ML IV SCH ×6 (09:09→13:16)
[2016-09-23] MEDS: NOREPINEPHRINE-DEXTROSE DRIP 250 ML IV SCH ×2 (10:07→11:13)
--- NOTE | 2016-09-23 12:13 | PD.CONS ---
Consult Service Palliative Care . Consult Requested By Dr. Medellin . Primary Care Physician Ana Seth MD . Reason for Consultation a. To assist with evaluation and management of symptoms including: dyspnea, pain, hypotension. b. To assist medical decision maker(s) with: better understanding of current medical conditions; weighing benefits/burdens of medical treatment options; making medical treatment decisions. . HPI History of Present Illness Mr. 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 Patient presented to [facility] emergency department on 09/18/16 with worsening shortness of breath and chest pain. Symptoms became progressively worse in the 2 days prior to presentation. Patient was hypoxic placed on non- rebreather and later increased BiPAP. Troponin was elevated 4.07, 15.8, 15.4 sequentially. Patient was admitted to ICU. Creatinine 3.68. BNP 2218. Creatinine continue to worsen, nephrology. Dr. Gaytan was consulted and started emergent dialysis on 09/19/16. Patient was intubated and placed on mechanical vent on 09/21/16. Cardiology, Dr. Chester was consulted for elevated troponin, findings consistent with non-ST elevation AR, patient is not a candidate for cardiac catheterization given worsening renal function. Patient has continued to decline throughout hospitalization, too unstable for continued dialysis, on significant pressor support, and high mech vent support. Patient appears to be actively dying with significant hypotension despite pressor support BP 80 systolic. Palliative care is consulted to assist with further clarification of treatment goals. . Function/Cognitive Trajectory Patient was living at home with his daughter and grandson prior to admission. Patient was reportedly stable until days prior to admission when he had worsening shortness of breath, fatigue and chest pain. He had shortness of breath with minimal exertion. . 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 Past Surgical History CABG (5 vessel) 2002 right eye surgery left nephrectomy 2009 cystoscopy . Reported Medications Reported D3 2000 (Cholecalciferol) 2,000 Unit Tab Iron (Ferrous Sulfate) 325 Mg Tab 325 Mg PO DAILY Take Enalapril (Enalapril Maleate) 20 Mg Tab 20 Mg PO DAILY Furosemide 40 Mg Tab 40 Mg PO DAILY Isosorbide Mononitrate ER (Isosorbide Mononitrate) 30 Mg Linda 30 Mg PO DAILY Atorvastatin (Atorvastatin Calcium) 20 Mg Tab 20 Mg PO HS Aspirin 81 Mg Tabdr 81 Mg PO DAILY Metoprolol Tartrate 25 Mg Tab 25 Mg PO BID Amlodipine (Amlodipine Besylate) 5 Mg Tab 5 Mg PO DAILY Clopidogrel (Clopidogrel Bisulfate) 75 Mg Tab 75 Mg PO DAILY Levothyroxine (Levothyroxine Sodium) 50 Mcg Tab 50 Mcg PO DAILY . Current Medications Medications (Trade) Dose Ordered Sig/Rufino Route Start Time Stop Time Status Last Admin (Tylenol) 650 mg Q6H PRN PO 09/19/16 02:30 09/23/16 08:04 (Protonix Inj) 40 mg DAILY IV 09/19/16 09:00 09/23/16 09:00 (Colace) 100 mg BID PO 09/19/16 09:00 09/21/16 22:07 (Dulcolax Supp) 10 mg DAILY PRN RECTAL 09/19/16 02:30 Magnesium Hydroxide 30 ml 30 ml Q12H PRN PO 09/19/16 02:30 (NS 1000 ml Inj) 1,000 ml @ 0 mls/hr TITRATE PRN IV 09/19/16 04:15 09/20/16 13:04 Heparin Sodium (Porcine) 8000 units 8,000 units UNSCH PRN IV FLUSH 09/19/16 04:15 (NS 250 ml Inj) 200 ml @ 0 mls/hr UNSCH PRN IV 09/19/16 04:15 (Mannitol Inj) 12.5 gm UNSCH PRN IV 09/19/16 04:15 (Albumin 25% Inj) 25 gm UNSCH PRN IV 09/19/16 04:15 09/20/16 13:06 (NS Flush) 5 ml UNSCH PRN IVF 09/19/16 04:15 (Heparin Inj) Dwell Heparin to f... UNSCH PRN OTHER 09/19/16 04:15 09/20/16 13:07 (Gentamicin (Dialysis) Inj) 10 mg UNSCH PRN OTHER 09/19/16 04:15 09/19/16 04:56 (Gelfoam 12 Mm/7 Mm Top) 1 foam UNSCH PRN TOP 09/19/16 04:15 (Zofran Inj) 4 mg UNSCH PRN IV 09/19/16 04:15 (Benadryl) 25 mg UNSCH PRN PO 09/19/16 04:15 (Nitrostat Sl) 0.4 mg UNSCH PRN SL 09/19/16 04:15 Clonidine 0.1 mg 0.1 mg UNSCH PRN PO 09/19/16 04:15 (Zithromax Inj/ NS 250 ml Inj) 250 ml @ 250 mls/hr Q24H IV 09/19/16 09:00 09/23/16 08:15 (NS Flush) 2 ml UNSCH PRN IV FLUSH 09/19/16 08:15 (NS Flush) 2 ml BID IV FLUSH 09/19/16 09:00 09/23/16 09:01 ([place] 5-325 Mg) 1 tab Q4H PRN PO 09/19/16 08:15 (Morphine Inj) 2 mg Q2H PRN IV 09/19/16 08:15 (Tears Naturale Opth Soln) 1 drop TID EACH EYE 09/19/16 09:00 09/23/16 08:14 (Zofran Inj) 4 mg Q6H PRN IV 09/19/16 08:15 Miscellaneous Information 1 Q361D XX 09/19/16 08:15 09/19/16 09:28 (Chlorhexidine 2% Cloth) 3 pack Taper DAILY@04 TOP 09/20/16 04:00 09/16/17 03:59 09/23/16 04:00 (Chlorhexidine 2% Cloth) 3 pack UNSCH PRN TOP 09/19/16 08:15 (Aspirin Chew) 81 mg DAILY CHEW 09/19/16 09:00 09/23/16 08:24 (Plavix) 75 mg DAILY PO 09/19/16 09:00 09/22/16 08:03 (Lipitor) 20 mg HS PO 09/19/16 21:00 09/21/16 22:08 (Ferrous Sulfate) 325 mg DAILY PO 09/19/16 09:00 09/23/16 09:02 (Vitamin C) 500 mg DAILY PO 09/19/16 09:00 09/23/16 09:02 (Isordil) 10 mg Q8HR PO 09/19/16 09:00 Hold 09/21/16 13:17 (Synthroid) 50 mcg DAILY@0600 PO 09/20/16 06:00 09/23/16 06:00 Cholecalciferol 1000 units 1,000 units DAILY PO 09/19/16 09:00 09/23/16 09:01 (Zosyn 2.25 Gm Premix) 50 ml @ 100 mls/hr Q8H IV 09/19/16 10:00 09/23/16 10:04 Chlorhexidine Gluconate 15 ml 15 ml BID@08,20 MT 09/20/16 08:00 09/23/16 08:00 Propofol 100 ml @ 0 mls/hr TITRATE IV 09/20/16 07:00 09/23/16 08:08 (fentaNYL DRIP) 250 ml @ 0 mls/hr TITRATE IV 09/20/16 07:00 09/23/16 08:08 (Senokot) 17.2 mg Q12H PO 09/20/16 09:00 09/22/16 08:03 (Miralax) 17 gm DAILY PO 09/20/16 09:00 09/23/16 09:02 (NS Flush) DAILY IVF 09/20/16 09:00 09/23/16 09:01 (NS Flush) UNSCH PRN IVF 09/20/16 09:00 (Brethine Inj) 1 mg UNSCH PRN SQ 09/20/16 14:45 Hydrocortisone Sodium Succinate 100 mg 100 mg Q8HR IV PUSH 09/21/16 15:00 09/23/16 06:00 Vasopressin 40 units/Dextrose 100 ml @ 1.5 mls/hr Q24H IV 09/21/16 16:50 09/22/16 21:24 (Cardizem Inj/NS Inj) 125 ml @ 0 mls/hr TITRATE IV 09/21/16 18:00 09/21/16 18:05 Heparin Sodium (Porcine) 5000 units 5,000 units Q12HR SQ 09/21/16 21:00 09/23/16 00:26 Phenylephrine HCl 160 mg/Dextrose 500 ml @ 0 mls/hr TITRATE IV 09/21/16 21:00 09/22/16 21:24 (Sodium Bicarbonate 8.4% Inj/Sterile Water For Inj) 1,150 ml @ 50 mls/hr Q23H IV 09/22/16 04:00 09/23/16 03:00 (Phoslo) 667 mg TID PO 09/22/16 09:00 09/23/16 09:02 (Colace Liq) 100 mg Q12HR PO 09/22/16 09:00 09/23/16 09:01 (Senna Liq) 8.8 mg BID PO/TUBE 09/22/16 09:00 09/23/16 09:01 (Miralax) 17 gm BID TUBE 09/22/16 09:00 09/23/16 00:26 Lactulose 30 ml 30 ml DAILY PO 09/22/16 09:00 09/23/16 08:04 Dobutamine HCl 1000 mg/Dextrose 250 ml @ 3.5 mls/hr CONTINUOUS IV 09/22/16 09:45 Epinephrine HCl 2 mg/Dextrose 250 ml @ 0 mls/hr TITRATE IV 09/23/16 08:30 09/23/16 11:13 (Levophed-Dextrose Drip) 250 ml @ 0 mls/hr TITRATE IV 09/23/16 08:30 09/23/16 11:13 . Family History Parents . . Substance Use Tobacco: former smoker. Alcohol: prior alcohol use, none recent Prescription med abuse: none known. Unknown. . Illicits: Psychosocial History . Patient has 4 adult daughters (Nat, Michelle, Navya, Margaret) that all live local. 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 Family describes him as one of the kindest people he would ever meet. He was living with his daughter, Nat and grandson, Gabriel. . Spiritual/Cultural Factors Adventist/spirituality is not an important part of his life. Family tells me that he always said that the "methodist would fall down if he walked in." . Living Will: Never completed Health Care Surrogate: Never completed Durable Power of Supervisor [employer]: Never completed Today's verbally stated goals: Patient is incapacitated, will not regain capacity. Family/friends goals: Family desires continued care, no further escalation of care at this time. They are considering withdrawal of life support, however one daughter seems to be struggling with this decision. All family is very supportive of one another , they understand that the patient is dying. Ethical and Legal Issues According to 40 statutes, health care proxy decision-making falls to the majority of adult children. Patient has 4 daughters. . Physical Exam Vital Signs Date Time Temp Pulse Resp B/P Pulse Ox O2 Delivery O2 Flow Rate FiO2 09/23/16 10:10 98 60 09/23/16 10:00 82 09/23/16 09:05 20 09/23/16 08:00 60 09/23/16 08:00 85 09/23/16 08:00 101.3 98 20 84/44 96 09/23/16 07:23 96 60 09/23/16 07:00 98 Mechanical Ventilator 60 09/23/16 06:00 102 09/23/16 04:00 88 09/23/16 04:00 60 09/23/16 04:00 98.7 88 20 98/40 92 09/23/16 03:43 95 60 09/23/16 02:00 96 09/23/16 01:23 95 60 09/23/16 00:00 99 09/23/16 00:00 60 09/23/16 00:00 98.5 99 20 104/51 92 09/22/16 22:00 102 09/22/16 21:36 93 60 09/22/16 20:28 93 60 09/22/16 20:00 97.6 98 20 104/54 92 09/22/16 20:00 60 09/22/16 20:00 98 09/22/16 19:00 94 Mechanical Ventilator 60 09/22/16 18:02 94 60 09/22/16 18:00 92 09/22/16 18:00 92 113/59 09/22/16 16:00 96.9 93 20 107/55 94 09/22/16 16:00 60 09/22/16 16:00 95 09/22/16 14:00 98 09/22/16 12:00 60 09/22/16 12:00 92 09/22/16 12:00 96.4 92 20 100/56 94 09/22/16 11:29 96 60 09/22/16 09/23/16 19:00 07:00 Intake Total 2301 ml 3492 ml Output Total 0 ml 0 ml Balance 2301 ml 3492 ml IV Total 2001 ml 3492 ml Tube Feeding 0 ml 0 ml Albumin 200 ml Other 100 ml 0 ml Output Urine Total 0 ml 0 ml Gastric Drainage Total 0 ml Exam CONSTITUTIONAL/GENERAL: This is an adequately nourished patient, in no apparent distress. TUBES/LINES/DRAINS: ETT, OG, left IJ central line, PIV left forearm, right arterial femoral line, left femoral vas-cath, barbosa, SCds SKIN: No jaundice, rashes, or lesions. Ecchymoses on upper extremities. No wounds seen anteriorly. Hands and feet cool to touch. HEAD: Atraumatic. Normocephalic. EYES: eyes dry, closed. pupils equal and round and reactive. ENT: unable to assess hearing given current condition. nose without bleeding or purulent drainage. Throat difficult to visualize due to tubes. NECK: Trachea midline. CARDIOVASCULAR: irregular. No JVD. Peripheral pulses symmetric. RESPIRATORY/CHEST: Symmetric, unlabored respirations on vent. Scattered crackles bilaterally. GASTROINTESTINAL: Abdomen soft, non-tender, nondistended. No guarding. Bowel sounds hypoactive. GENITOURINARY: Without palpable bladder distension. Barbosa catheter in place. MUSCULOSKELETAL: Extremities without clubbing, cyanosis. Bilateral lower extremity pitting edema. LYMPHATICS: No palpable cervical or supraclavicular adenopathy. NEUROLOGICAL: unresponsive. PSYCHIATRIC: unresponsive. . Diagnostic Tests Laboratory Laboratory Tests Test 09/20/16 09/21/16 09/21/16 09/21/16 18:30 00:00 00:30 04:35 Activated Partial 87.4 SEC 76.0 SEC Thromboplast Time (24.3-30.1) (24.3-30.1) Blood Gas Puncture Site ART LINE Blood Gas Patient Temperature 98.6 Blood Gas HCO3 20 mmol/L (22-26) Blood Gas Base Excess -4.9 mmol/L (-2-2) Blood Gas Oxygen Saturation 97 % (90-100) Arterial Blood pH 7.34 (7.380-7.420) Arterial Blood Partial 38 mmHg (38-42) Pressure CO2 Arterial Blood Partial 153 mmHg Pressure O2 (61-120) Arterial Blood Oxygen Content 13.9 Vol % (12.0-20.0) Arterial Blood 0.8 % (0-4) Carboxyhemoglobin Arterial Blood Methemoglobin 1.1 % (0-2) Blood Gas Hemoglobin 10.0 G/DL (12.0-16.0) Oxygen Delivery Device VENTILATOR Blood Gas Ventilator Setting 550/16/+5/1.3 Blood Gas Inspired Oxygen 60 % White Blood Count 9.6 TH/MM3 (4.0-11.0) Red Blood Count 3.47 MIL/MM3 (4.50-5.90) Hemoglobin 10.5 GM/DL (13.0-17.0) Hematocrit 30.9 % (39.0-51.0) Mean Corpuscular Volume 89.2 FL (80.0-100.0) Mean Corpuscular Hemoglobin 30.3 PG (27.0-34.0) Mean Corpuscular Hemoglobin 33.9 % Concent (32.0-36.0) Red Cell Distribution Width 14.8 % (11.6-17.2) Platelet Count 110 TH/MM3 (150-450) Mean Platelet Volume 9.6 FL (7.0-11.0) Neutrophils (%) (Auto) 72.5 % (16.0-70.0) Lymphocytes (%) (Auto) 14.5 % (9.0-44.0) Monocytes (%) (Auto) 10.2 % (0.0-8.0) Eosinophils (%) (Auto) 1.9 % (0.0-4.0) Basophils (%) (Auto) 0.9 % (0.0-2.0) Neutrophils # (Auto) 6.9 TH/MM3 (1.8-7.7) Lymphocytes # (Auto) 1.4 TH/MM3 (1.0-4.8) Monocytes # (Auto) 1.0 TH/MM3 (0-0.9) Eosinophils # (Auto) 0.2 TH/MM3 (0-0.4) Basophils # (Auto) 0.1 TH/MM3 (0-0.2) CBC Comment DIFF FINAL Differential Comment Sodium Level 138 MEQ/L (136-145) Potassium Level 3.8 MEQ/L (3.5-5.1) Chloride Level 101 MEQ/L (98-107) Carbon Dioxide Level 27.2 MEQ/L (21.0-32.0) Anion Gap 10 MEQ/L (5-15) Blood Urea Nitrogen 44 MG/DL (7-18) Creatinine 4.63 MG/DL (0.60-1.30) Estimat Glomerular Filtration 12 ML/MIN (>89) Rate Random Glucose 171 MG/DL (74-106) Lactic Acid Level 1.2 mmol/L (0.4-2.0) Calcium Level 7.7 MG/DL (8.5-10.1) Phosphorus Level 3.5 MG/DL (2.5-4.9) Magnesium Level 2.0 MG/DL (1.5-2.5) Total Bilirubin 1.3 MG/DL (0.2-1.0) Aspartate Amino Transf 67 U/L (15-37) (AST/SGOT) Alanine Aminotransferase 24 U/L (12-78) (ALT/SGPT) Alkaline Phosphatase 67 U/L (45-117) Total Creatine Kinase 838 U/L (39-308) Creatine Kinase MB 8.4 NG/ML (0.5-3.6) Creatine Kinase MB % 1.0 % (0.0-4.0) Troponin I 21.20 NG/ML (0.02-0.05) Total Protein 5.6 GM/DL (6.4-8.2) Albumin 2.6 GM/DL (3.4-5.0) Test 09/21/16 09/21/16 09/21/16 09/21/16 06:55 12:24 15:10 15:20 Activated Partial 45.2 SEC 43.0 SEC Thromboplast Time (24.3-30.1) (24.3-30.1) Blood Gas Puncture Site CENTRAL LINE Blood Gas Patient Temperature 98.6 Venous Blood pH 7.31 (7.360-7.400) Venous Blood Partial Pressure 53 mmHg (44-48) CO2 Venous Blood Partial Pressure 40 mmHg (35-40) O2 Venous Blood HCO3 26 mmol/L (22-26) Venous Blood Oxygen Saturation 64 % (70-76) Venous Blood Oxygen Content 9.8 Vol % (9.0-17.0) Venous Blood Base Excess 0.2 mmol/L (-2-2) Oxygen Delivery Device VENTILATOR Blood Gas Ventilator Setting Blood Gas Inspired Oxygen 60 % Lactic Acid Level 1.5 mmol/L (0.4-2.0) Test 09/21/16 09/21/16 09/21/16 09/21/16 15:27 17:05 18:10 21:22 Hemoglobin 11.0 GM/DL (13.0-17.0) Hematocrit 31.9 % (39.0-51.0) Troponin I 16.90 NG/ML (0.02-0.05) Activated Partial 41.4 SEC Thromboplast Time (24.3-30.1) Blood Gas Puncture Site CHUCKIE Blood Gas Patient Temperature 98.6 Blood Gas HCO3 19 mmol/L (22-26) Blood Gas Base Excess -6.5 mmol/L (-2-2) Blood Gas Oxygen Saturation 90 % (90-100) Arterial Blood pH 7.26 (7.380-7.420) Arterial Blood Partial 44 mmHg (38-42) Pressure CO2 Arterial Blood Partial 74 mmHg Pressure O2 (61-120) Arterial Blood Oxygen Content 13.1 Vol % (12.0-20.0) Arterial Blood 0.7 % (0-4) Carboxyhemoglobin Arterial Blood Methemoglobin 1.1 % (0-2) Blood Gas Hemoglobin 10.3 G/DL (12.0-16.0) Oxygen Delivery Device VENTILATOR Blood Gas Ventilator Setting [facility]/R16/550/1.1/+10 Blood Gas Inspired Oxygen 60 % Test 09/22/16 09/22/16 09/22/16 09/22/16 02:35 05:00 09:14 09:30 Blood Gas Puncture Site CENTRAL LINE ART LINE CENTRAL LINE Blood Gas Patient Temperature 98.6 98.6 98.6 Venous Blood pH 7.12 7.24 (7.360-7.400) (7.360-7.400) Venous Blood Partial Pressure 49 mmHg (44-48) 44 mmHg (44-48) CO2 Venous Blood Partial Pressure 45 mmHg (35-40) 32 mmHg (35-40) O2 Venous Blood HCO3 15 mmol/L 18 mmol/L (22-26) (22-26) Venous Blood Oxygen Saturation 63 % (70-76) 47 % (70-76) Venous Blood Oxygen Content 9.5 Vol % 6.2 Vol % (9.0-17.0) (9.0-17.0) Venous Blood Base Excess -12.6 mmol/L -7.8 mmol/L (-2-2) (-2-2) Oxygen Delivery Device VENTILATOR VENTILATOR VENTILATOR Blood Gas Ventilator Setting PRVC PRVC/AC PRVC/AC Blood Gas Inspired Oxygen 60 % 60 % 60 % White Blood Count 10.9 TH/MM3 (4.0-11.0) Red Blood Count 3.53 MIL/MM3 (4.50-5.90) Hemoglobin 10.8 GM/DL (13.0-17.0) Hematocrit 32.4 % (39.0-51.0) Mean Corpuscular Volume 91.6 FL (80.0-100.0) Mean Corpuscular Hemoglobin 30.7 PG (27.0-34.0) Mean Corpuscular Hemoglobin 33.5 % Concent (32.0-36.0) Red Cell Distribution Width 15.7 % (11.6-17.2) Platelet Count 91 TH/MM3 (150-450) Mean Platelet Volume 10.4 FL (7.0-11.0) Sodium Level 132 MEQ/L (136-145) Potassium Level 5.5 MEQ/L (3.5-5.1) Chloride Level 93 MEQ/L (98-107) Carbon Dioxide Level 16.0 MEQ/L (21.0-32.0) Anion Gap 23 MEQ/L (5-15) Blood Urea Nitrogen 57 MG/DL (7-18) Creatinine 6.97 MG/DL (0.60-1.30) Estimat Glomerular Filtration 8 ML/MIN (>89) Rate Random Glucose 307 MG/DL (74-106) Calcium Level 7.6 MG/DL (8.5-10.1) Phosphorus Level 8.1 MG/DL (2.5-4.9) Magnesium Level 2.4 MG/DL (1.5-2.5) Troponin I 16.30 NG/ML (0.02-0.05) Albumin 2.8 GM/DL (3.4-5.0) Blood Gas HCO3 17 mmol/L (22-26) Blood Gas Base Excess -8.2 mmol/L (-2-2) Blood Gas Oxygen Saturation 90 % (90-100) Arterial Blood pH 7.33 (7.380-7.420) Arterial Blood Partial 33 mmHg (38-42) Pressure CO2 Arterial Blood Partial 69 mmHg Pressure O2 (61-120) Arterial Blood Oxygen Content 12.4 Vol % (12.0-20.0) Arterial Blood 0.7 % (0-4) Carboxyhemoglobin Arterial Blood Methemoglobin 1.2 % (0-2) Blood Gas Hemoglobin 9.8 G/DL (12.0-16.0) Venous Blood Carboxyhemoglobin 1.2 % (0-2) Test 09/22/16 09/22/16 09/22/16 09/22/16 11:10 12:25 13:43 14:50 Lactic Acid Level 12.2 mmol/L 13.2 mmol/L (0.4-2.0) (0.4-2.0) Prothrombin Time 18.1 SEC (9.8-11.6) Prothromb Time International 1.6 RATIO Ratio Activated Partial 53.0 SEC Thromboplast Time (24.3-30.1) Fibrinogen 333 mg/dL (181-393) Total Bilirubin 2.4 MG/DL (0.2-1.0) Direct Bilirubin 1.8 MG/DL (0.0-0.2) Indirect Bilirubin 0.6 MG/DL (0.0-0.8) Aspartate Amino Transf 3266 U/L (AST/SGOT) (15-37) Alanine Aminotransferase 1291 U/L (ALT/SGPT) (12-78) Alkaline Phosphatase 64 U/L (45-117) Troponin I 19.70 NG/ML 21.30 NG/ML (0.02-0.05) (0.02-0.05) Total Protein 5.8 GM/DL 5.6 GM/DL (6.4-8.2) (6.4-8.2) Albumin 3.3 GM/DL (3.4-5.0) Lipase 36 U/L (73-393) Sodium Level 133 MEQ/L (136-145) Potassium Level 5.2 MEQ/L (3.5-5.1) Chloride Level 90 MEQ/L (98-107) Carbon Dioxide Level 16.0 MEQ/L (21.0-32.0) Anion Gap 27 MEQ/L (5-15) Blood Urea Nitrogen 65 MG/DL (7-18) Creatinine 7.07 MG/DL (0.60-1.30) Estimat Glomerular Filtration 7 ML/MIN (>89) Rate Random Glucose 388 MG/DL (74-106) Calcium Level 7.1 MG/DL (8.5-10.1) Protein Corrected Calcium 7.9 MG/DL (8.5-10.1) Blood Gas Puncture Site CENTRAL LINE Blood Gas Patient Temperature 98.6 Venous Blood pH 7.20 (7.360-7.400) Venous Blood Partial Pressure 40 mmHg (44-48) CO2 Venous Blood Partial Pressure 39 mmHg (35-40) O2 Venous Blood HCO3 15 mmol/L (22-26) Venous Blood Oxygen Saturation 56 % (70-76) Venous Blood Oxygen Content 7.8 Vol % (9.0-17.0) Venous Blood Base Excess -11.6 mmol/L (-2-2) Oxygen Delivery Device VENTILATOR Blood Gas Ventilator Setting PRVC/AC Blood Gas Inspired Oxygen 60 % Test 09/23/16 09/23/16 09/23/16 00:57 04:28 04:30 Lactic Acid Level 14.0 mmol/L 12.6 mmol/L (0.4-2.0) (0.4-2.0) Blood Gas Puncture Site ART LINE Blood Gas Patient Temperature 98.6 Blood Gas HCO3 13 mmol/L (22-26) Blood Gas Base Excess -12.3 mmol/L (-2-2) Blood Gas Oxygen Saturation 93 % (90-100) Arterial Blood pH 7.30 (7.380-7.420) Arterial Blood Partial 27 mmHg (38-42) Pressure CO2 Arterial Blood Partial 94 mmHg Pressure O2 (61-120) Arterial Blood Oxygen Content 12.2 Vol % (12.0-20.0) Arterial Blood 0.4 % (0-4) Carboxyhemoglobin Arterial Blood Methemoglobin 1.6 % (0-2) Blood Gas Hemoglobin 9.2 G/DL (12.0-16.0) Oxygen Delivery Device VENTILATOR Blood Gas Ventilator Setting PRVC/AC Blood Gas Inspired Oxygen 60 % White Blood Count 15.8 TH/MM3 (4.0-11.0) Red Blood Count 3.12 MIL/MM3 (4.50-5.90) Hemoglobin 9.4 GM/DL (13.0-17.0) Hematocrit 28.3 % (39.0-51.0) Mean Corpuscular Volume 90.8 FL (80.0-100.0) Mean Corpuscular Hemoglobin 30.2 PG (27.0-34.0) Mean Corpuscular Hemoglobin 33.2 % Concent (32.0-36.0) Red Cell Distribution Width 15.0 % (11.6-17.2) Platelet Count 67 TH/MM3 (150-450) Mean Platelet Volume 11.1 FL (7.0-11.0) Neutrophils (%) (Auto) 90.4 % (16.0-70.0) Lymphocytes (%) (Auto) 2.7 % (9.0-44.0) Monocytes (%) (Auto) 6.8 % (0.0-8.0) Eosinophils (%) (Auto) 0.0 % (0.0-4.0) Basophils (%) (Auto) 0.1 % (0.0-2.0) Neutrophils # (Auto) 14.2 TH/MM3 (1.8-7.7) Lymphocytes # (Auto) 0.4 TH/MM3 (1.0-4.8) Monocytes # (Auto) 1.1 TH/MM3 (0-0.9) Eosinophils # (Auto) 0.0 TH/MM3 (0-0.4) Basophils # (Auto) 0.0 TH/MM3 (0-0.2) CBC Comment AUTO DIFF Differential Total Cells 100 Counted Neutrophils % (Manual) 79 % (16-70) Band Neutrophils % 10 % (0-6) Lymphocytes % 5 % (9-44) Monocytes % 5 % (0-8) Neutrophils # (Manual) 14.2 TH/MM3 (1.8-7.7) Metamyelocytes 1 % (0-1) Differential Comment FINAL DIFF MANUAL Platelet Estimate LOW (NORMAL) Platelet Morphology Comment NORMAL (NORMAL) Ovalocytes 1+ (NORMAL) Acanthocytes OCC (NORMAL) Sodium Level 128 MEQ/L (136-145) Potassium Level 5.9 MEQ/L (3.5-5.1) Chloride Level 85 MEQ/L (98-107) Carbon Dioxide Level 15.2 MEQ/L (21.0-32.0) Anion Gap 28 MEQ/L (5-15) Blood Urea Nitrogen 72 MG/DL (7-18) Creatinine 8.17 MG/DL (0.60-1.30) Estimat Glomerular Filtration 6 ML/MIN (>89) Rate Random Glucose 342 MG/DL (74-106) Calcium Level 6.0 MG/DL (8.5-10.1) Protein Corrected Calcium 6.9 MG/DL (8.5-10.1) Phosphorus Level 9.0 MG/DL (2.5-4.9) Magnesium Level 2.3 MG/DL (1.5-2.5) Total Bilirubin 2.8 MG/DL (0.2-1.0) Aspartate Amino Transf 67922 U/L (AST/SGOT) (15-37) Alanine Aminotransferase 5406 U/L (ALT/SGPT) (12-78) Alkaline Phosphatase 101 U/L (45-117) Total Protein 5.1 GM/DL (6.4-8.2) Albumin 2.7 GM/DL (3.4-5.0) Result Diagram: 09/23/16 0430 09/23/16 0430 Microbiology Microbiology Date/Time Procedure Status Source Growth 09/19/16 21:45 Gram Stain - Final Complete Sputum Expectorated Sputum 09/19/16 21:45 Sputum Culture - Final Complete Sputum Expectorated Sputum HEAVY GROWTH NORMAL RESPIRATORY DANK 09/19/16 08:45 Aerobic Blood Culture - Preliminary Resulted Blood Peripheral NO GROWTH IN 4 DAYS 09/19/16 08:45 Anaerobic Blood Culture - Preliminary Resulted Blood Peripheral NO GROWTH IN 4 DAYS Imaging Last Impressions Chest X-Ray 09/22/16 0600 Signed Impressions: Service Date/Time: Thursday, September 22, 2016 05:00 - CONCLUSION: Persistent, but slightly improved, infiltrates throughout both lungs. Probable small left pleural effusion. Cristino Mo MD Renal Ultrasound 09/19/16 0000 Signed Impressions: Service Date/Time: September 12:08 - CONCLUSION: 1. Left nephrectomy. 2. Right kidney slightly echogenic which can be seen with medical renal disease. Shahbaz Noriega MD Patient/Family Conference Present at Family Conference: Met with patient's 4 daughters and grandchildren. Family Conference Time (mins): 60 Family Conference Location: Consult Room Issues Discussed: * Palliative care role, purpose, approach * Additional medical, psychosocial, and spiritual history * Patients general health, functional status, and cognitive changes in the months leading up to the current hospitalization * Patient/family understanding of the current medical problems * Patient/family understanding of prognosis * Patients goals of care as best understood from advance directives and/or conversations and/or values * Current medical treatment options and benefits/burdens of those options * Likely scenarios comparing ongoing aggressive care with a transition to comfort measures only * Questions answered to the best of my ability * Palliative care contact information provided Assessment and Plan Disease Oriented Problem List: (1) CHF (congestive heart failure) (2) Chronic renal failure (3) Type 2 diabetes mellitus (4) Hypertension (5) Hyperlipidemia (6) Non-STEMI (non-ST elevated myocardial infarction) (7) Metabolic acidosis (8) Respiratory distress (9) Acute renal failure (10) Hypothyroidism Symptom Scale: (1) Pain 0-10 Scale: Unable to quantify Comment: On fentanyl drip. (2) Dyspnea 0-10 Scale: Unable to quantify (3) Hypotension 0-10 Scale: Unable to quantify Pertinent Non-Medical Issues Psychosocial: . Has 4 adult daughters (Nat, Michelle, Navya and Margaret). Spiritual: quaker is not an important part of his life. Legal:According to statutes, health care proxy decision-making falls to the majority of adult children. Patient has 4 daughters. Ethical issues impacting care: no known concerns at this time. . Important Contacts * Nat, daughter: [phone] * Michelle, daughter [phone] * Navya, daughter: [phone] * Margaret, daughter [phone] Prognosis Mr. Reeves is an 86-year-old male with coronary artery disease, CHF, severe mitral regurgitation admitted with nSTEMI, now with multisystem organ failure on mechanical ventilation, hemodialysis, multiple pressors. Patient appears to be dying. . Code Status: No Code Plan * Patient is incapacitated, will not regain capacity. According to [place] statutes, health care proxy decision-making falls to the majority of adult children. Patient has 4 daughters. * NO CODE * Palliative care met with 4 daughters and grandchildren. Family agrees to know further escalation of care at this time. They're going to meet to discuss further the possibility of withdrawal of life support in transition to comfort focused care. Family is very realistic they understand that the patient is dying and will be okay if he dies while on life support. One daughter appears to be struggling with the idea of withdrawal of life support and her sisters want to make sure she is okay in the end and therefore would not want to go against her wishes. Family is very supportive of one another. * SYMPTOMS: Pain: potential sources of pain include recent AR, sepsis, intubation, mechanical ventilation, tubes. Patient remains on fentanyl drip 100 g, appears comfortable during my visit. Dyspnea: on mech vent, FiO2 60%, PEEP 10. Hypotension: on multiple pressors. * Palliative care number provided. * Palliative care will continue to follow throughout hospital course to assist with symptom management and further clarification of treatment goals as needed. . Thank you for the opportunity to participate in the care of Mr. Reeves. Attestation To help prompt me to consider important information that might be impacting today's encounter and assessment, information from prior notes written by myself or my colleagues may have been "brought forward" into today's note. My signature on this note, however, is an attestation that I personally performed the exam, history, and/or decision-making noted today, and, unless otherwise indicated, the interactions with patient, family, and staff as well as the review of records all occurred today. I also attest that the listed assessment and stated plan reflect my best clinical judgment today based on the combination of historical information, prior notes, and today's exam/ interactions. When time spent is documented, it refers only to time spent today by the signer, or if indicated, combined time spent today by collaborating physician/nurse practitioner. . EDELMIRA MATIAS Sep 23, 2016 12:13
--- NOTE | 2016-09-23 14:30 | HHI.DS ---
Summary Note Date of : Sep 23, 2016 Time Of : 14:11 Admission Date Sep 19, 2016 at 01:08 Admitting Diagnosis congestive heart failure, respiratory distress, hypoxia, renal failu Diagnosis at Time of : (1) Acute respiratory failure ICD Code: J96.00 Diagnosis: Principal (2) Non-STEMI (non-ST elevated myocardial infarction) ICD Code: I21.4 Diagnosis: Principal (3) Acute renal failure ICD Code: N17.9 Diagnosis: Principal (4) Acute hepatic failure ICD Code: K72.00 Diagnosis: Principal (5) Hypotension ICD Code: I95.9 Diagnosis: Principal Procedures Placement of right IJ and left femoral hemodialysis catheters Placement of left IJ CVL Brief History This is a 86-year-old gentleman that presented to the ED with complaints of dyspnea, accompanied by a family member was later identified as his grandson. Patient was hypoxic in the triage, he was placed on nonrebreather initially. The patient also complained of having angina for several days. Initial troponin was 4.07. The patient's past medical history is significant for CHF, CAD, chronic kidney disease, single kidney. An ABG was obtained noted metabolic acidosis, with a bicarbonate of 10. The patient was placed on BiPAP and given 40 mg of Lasix. He subsequently diureses less than 500 cc. Nephrology consult was initiated per Dr. Alvarado, to Dr. Taylor for emergent dialysis. 2 amps of sodium bicarbonate was given. Critical care medicine was consulted for management and treatment. I placed a right IJ Vas-Cath in the emergency department, patient is pending dialysis. [facility] Past Medical History Narrative Medical List of his past medical history reviewed from the nursing note. Hx Anticoagulant Therapy: Yes (PLAVIX) Arthritis: Yes Asthma: No Heart Rhythm Problems: No Cancer: Yes (RENAL) Cardiac Catheterization: Yes Cardiovascular Problems: Yes (5 VESSEL BYPASS, HTN) High Cholesterol: Yes Chemotherapy: No (TOOK KIDNEY OUT) Chest Pain: Yes Congestive Heart Failure: Yes COPD: No Cerebrovascular Accident: Yes Diabetes: Yes Gastrointestinal Disorders: Yes (KIDNEY REMOVED, ONLY ONE KIDNEY) GERD: No Genitourinary: No Headaches: No Hepatitis: No Hiatal Hernia: Yes Hypertension: Yes Kidney Stones: Yes Musculoskeletal: No Neurologic: No Reproductive: No Respiratory: No Migraines: No Myocardial Infarction: Yes Renal Failure: Yes Seizures: No Sleep Apnea: No Ulcer: No Past Surgical History Abdominal Surgery: No Appendectomy: No Cardiac Surgery: Yes Cholecystectomy: No Coronary Artery Bypass Graft: Yes (QUAD) Ear Surgery: No Endocrine Surgery: No Eye Surgery: Yes (BLIND RIGHT EYE) Genitourinary Surgery: Yes (LEFT NEPHRECTOMY) Gynecologic Surgery: No Oral Surgery: No Thoracic Surgery: No Other Surgery: Yes Social History Alcohol Use: No Tobacco Use: No Substance Use: No Allergies-Medications (Allergen,Severity, Reaction): Coded Allergies: No Known Allergies (Verified , 01/01/16) Comments No known drug allergies. Reported Meds & Prescriptions Reported Meds & Active Scripts Active Reported D3 2000 (Cholecalciferol) 2,000 Unit Tab Iron (Ferrous Sulfate) 325 Mg Tab 325 Mg PO DAILY Take Enalapril (Enalapril Maleate) 20 Mg Tab 20 Mg PO DAILY Furosemide 40 Mg Tab 40 Mg PO DAILY Isosorbide Mononitrate ER (Isosorbide Mononitrate) 30 Mg Linda 30 Mg PO DAILY Atorvastatin (Atorvastatin Calcium) 20 Mg Tab 20 Mg PO HS Aspirin 81 Mg Tabdr 81 Mg PO DAILY Metoprolol Tartrate 25 Mg Tab 25 Mg PO BID Amlodipine (Amlodipine Besylate) 5 Mg Tab 5 Mg PO DAILY Clopidogrel (Clopidogrel Bisulfate) 75 Mg Tab 75 Mg PO DAILY Levothyroxine (Levothyroxine Sodium) 50 Mcg Tab 50 Mcg PO DAILY Narrative Medication List of his home medications reviewed from the nursing note. Review of Systems Except as stated in HPI: all other systems reviewed are Neg CBC/BMP: 09/23/16 0430 09/23/16 1055 Significant Findings Laboratory Tests Test 09/20/16 09/21/16 09/21/16 09/21/16 18:30 00:00 00:30 04:35 Activated Partial 87.4 SEC 76.0 SEC Thromboplast Time (24.3-30.1) (24.3-30.1) Blood Gas HCO3 20 mmol/L (22-26) Blood Gas Base Excess -4.9 mmol/L (-2-2) Arterial Blood pH 7.34 (7.380-7.420) Arterial Blood Partial 153 mmHg Pressure O2 (61-120) Blood Gas Hemoglobin 10.0 G/DL (12.0-16.0) Red Blood Count 3.47 MIL/MM3 (4.50-5.90) Hemoglobin 10.5 GM/DL (13.0-17.0) Hematocrit 30.9 % (39.0-51.0) Platelet Count 110 TH/MM3 (150-450) Neutrophils (%) (Auto) 72.5 % (16.0-70.0) Monocytes (%) (Auto) 10.2 % (0.0-8.0) Monocytes # (Auto) 1.0 TH/MM3 (0-0.9) Blood Urea Nitrogen 44 MG/DL (7-18) Creatinine 4.63 MG/DL (0.60-1.30) Estimat Glomerular Filtration 12 ML/MIN (>89) Rate Random Glucose 171 MG/DL (74-106) Calcium Level 7.7 MG/DL (8.5-10.1) Total Bilirubin 1.3 MG/DL (0.2-1.0) Aspartate Amino Transf 67 U/L (15-37) (AST/SGOT) Total Creatine Kinase 838 U/L (39-308) Creatine Kinase MB 8.4 NG/ML (0.5-3.6) Troponin I 21.20 NG/ML (0.02-0.05) Total Protein 5.6 GM/DL (6.4-8.2) Albumin 2.6 GM/DL (3.4-5.0) Test 09/21/16 09/21/16 09/21/16 09/21/16 06:55 12:24 15:10 15:27 Activated Partial 45.2 SEC 43.0 SEC Thromboplast Time (24.3-30.1) (24.3-30.1) Venous Blood pH 7.31 (7.360-7.400) Venous Blood Partial Pressure 53 mmHg (44-48) CO2 Venous Blood Oxygen Saturation 64 % (70-76) Hemoglobin 11.0 GM/DL (13.0-17.0) Hematocrit 31.9 % (39.0-51.0) Test 09/21/16 09/21/16 09/21/16 09/22/16 17:05 18:10 21:22 02:35 Troponin I 16.90 NG/ML (0.02-0.05) Activated Partial 41.4 SEC Thromboplast Time (24.3-30.1) Blood Gas HCO3 19 mmol/L (22-26) Blood Gas Base Excess -6.5 mmol/L (-2-2) Arterial Blood pH 7.26 (7.380-7.420) Arterial Blood Partial 44 mmHg (38-42) Pressure CO2 Blood Gas Hemoglobin 10.3 G/DL (12.0-16.0) Venous Blood pH 7.12 (7.360-7.400) Venous Blood Partial Pressure 49 mmHg (44-48) CO2 Venous Blood Partial Pressure 45 mmHg (35-40) O2 Venous Blood HCO3 15 mmol/L (22-26) Venous Blood Oxygen Saturation 63 % (70-76) Venous Blood Base Excess -12.6 mmol/L (-2-2) Test 09/22/16 09/22/16 09/22/16 09/22/16 05:00 09:14 09:30 11:10 Red Blood Count 3.53 MIL/MM3 (4.50-5.90) Hemoglobin 10.8 GM/DL (13.0-17.0) Hematocrit 32.4 % (39.0-51.0) Platelet Count 91 TH/MM3 (150-450) Sodium Level 132 MEQ/L (136-145) Potassium Level 5.5 MEQ/L (3.5-5.1) Chloride Level 93 MEQ/L (98-107) Carbon Dioxide Level 16.0 MEQ/L (21.0-32.0) Anion Gap 23 MEQ/L (5-15) Blood Urea Nitrogen 57 MG/DL (7-18) Creatinine 6.97 MG/DL (0.60-1.30) Estimat Glomerular Filtration 8 ML/MIN (>89) Rate Random Glucose 307 MG/DL (74-106) Calcium Level 7.6 MG/DL (8.5-10.1) Phosphorus Level 8.1 MG/DL (2.5-4.9) Troponin I 16.30 NG/ML (0.02-0.05) Albumin 2.8 GM/DL (3.4-5.0) Blood Gas HCO3 17 mmol/L (22-26) Blood Gas Base Excess -8.2 mmol/L (-2-2) Arterial Blood pH 7.33 (7.380-7.420) Arterial Blood Partial 33 mmHg (38-42) Pressure CO2 Blood Gas Hemoglobin 9.8 G/DL (12.0-16.0) Venous Blood pH 7.24 (7.360-7.400) Venous Blood Partial Pressure 32 mmHg (35-40) O2 Venous Blood HCO3 18 mmol/L (22-26) Venous Blood Oxygen Saturation 47 % (70-76) Venous Blood Oxygen Content 6.2 Vol % (9.0-17.0) Venous Blood Base Excess -7.8 mmol/L (-2-2) Lactic Acid Level 12.2 mmol/L (0.4-2.0) Test 09/22/16 09/22/16 09/22/16 09/23/16 12:25 13:43 14:50 00:57 Prothrombin Time 18.1 SEC (9.8-11.6) Activated Partial 53.0 SEC Thromboplast Time (24.3-30.1) Total Bilirubin 2.4 MG/DL (0.2-1.0) Direct Bilirubin 1.8 MG/DL (0.0-0.2) Aspartate Amino Transf 3266 U/L (AST/SGOT) (15-37) Alanine Aminotransferase 1291 U/L (ALT/SGPT) (12-78) Troponin I 19.70 NG/ML 21.30 NG/ML (0.02-0.05) (0.02-0.05) Total Protein 5.8 GM/DL 5.6 GM/DL (6.4-8.2) (6.4-8.2) Albumin 3.3 GM/DL (3.4-5.0) Lipase 36 U/L (73-393) Sodium Level 133 MEQ/L (136-145) Potassium Level 5.2 MEQ/L (3.5-5.1) Chloride Level 90 MEQ/L (98-107) Carbon Dioxide Level 16.0 MEQ/L (21.0-32.0) Anion Gap 27 MEQ/L (5-15) Blood Urea Nitrogen 65 MG/DL (7-18) Creatinine 7.07 MG/DL (0.60-1.30) Estimat Glomerular Filtration 7 ML/MIN (>89) Rate Random Glucose 388 MG/DL (74-106) Lactic Acid Level 13.2 mmol/L 14.0 mmol/L (0.4-2.0) (0.4-2.0) Calcium Level 7.1 MG/DL (8.5-10.1) Protein Corrected Calcium 7.9 MG/DL (8.5-10.1) Venous Blood pH 7.20 (7.360-7.400) Venous Blood Partial Pressure 40 mmHg (44-48) CO2 Venous Blood HCO3 15 mmol/L (22-26) Venous Blood Oxygen Saturation 56 % (70-76) Venous Blood Oxygen Content 7.8 Vol % (9.0-17.0) Venous Blood Base Excess -11.6 mmol/L (-2-2) Test 09/23/16 09/23/16 09/23/16 04:28 04:30 10:55 Blood Gas HCO3 13 mmol/L (22-26) Blood Gas Base Excess -12.3 mmol/L (-2-2) Arterial Blood pH 7.30 (7.380-7.420) Arterial Blood Partial 27 mmHg (38-42) Pressure CO2 Blood Gas Hemoglobin 9.2 G/DL (12.0-16.0) White Blood Count 15.8 TH/MM3 (4.0-11.0) Red Blood Count 3.12 MIL/MM3 (4.50-5.90) Hemoglobin 9.4 GM/DL (13.0-17.0) Hematocrit 28.3 % (39.0-51.0) Platelet Count 67 TH/MM3 (150-450) Mean Platelet Volume 11.1 FL (7.0-11.0) Neutrophils (%) (Auto) 90.4 % (16.0-70.0) Lymphocytes (%) (Auto) 2.7 % (9.0-44.0) Neutrophils # (Auto) 14.2 TH/MM3 (1.8-7.7) Lymphocytes # (Auto) 0.4 TH/MM3 (1.0-4.8) Monocytes # (Auto) 1.1 TH/MM3 (0-0.9) Neutrophils % (Manual) 79 % (16-70) Band Neutrophils % 10 % (0-6) Lymphocytes % 5 % (9-44) Neutrophils # (Manual) 14.2 TH/MM3 (1.8-7.7) Platelet Estimate LOW (NORMAL) Ovalocytes 1+ (NORMAL) Sodium Level 128 MEQ/L (136-145) Potassium Level 5.9 MEQ/L 6.3 MEQ/L (3.5-5.1) (3.5-5.1) Chloride Level 85 MEQ/L (98-107) Carbon Dioxide Level 15.2 MEQ/L (21.0-32.0) Anion Gap 28 MEQ/L (5-15) Blood Urea Nitrogen 72 MG/DL (7-18) Creatinine 8.17 MG/DL (0.60-1.30) Estimat Glomerular Filtration 6 ML/MIN (>89) Rate Random Glucose 342 MG/DL (74-106) Lactic Acid Level 12.6 mmol/L 18.1 mmol/L (0.4-2.0) (0.4-2.0) Calcium Level 6.0 MG/DL (8.5-10.1) Protein Corrected Calcium 6.9 MG/DL (8.5-10.1) Phosphorus Level 9.0 MG/DL (2.5-4.9) Total Bilirubin 2.8 MG/DL (0.2-1.0) Aspartate Amino Transf 83341 U/L (AST/SGOT) (15-37) Alanine Aminotransferase 5406 U/L (ALT/SGPT) (12-78) Total Protein 5.1 GM/DL (6.4-8.2) Albumin 2.7 GM/DL (3.4-5.0) Imaging Last Impressions Chest X-Ray 09/22/16 0600 Signed Impressions: Service Date/Time: Thursday, September 22, 2016 05:00 - CONCLUSION: Persistent, but slightly improved, infiltrates throughout both lungs. Probable small left pleural effusion. Cristino Mo MD Renal Ultrasound 09/19/16 0000 Signed Impressions: Service Date/Time: September 12:08 - CONCLUSION: 1. Left nephrectomy. 2. Right kidney slightly echogenic which can be seen with medical renal disease. Shahbaz Noriega MD Hospital Course Neurologic/Psych: Blindness left eye- retinal detachment - Patient is on propofol at 20 mics grams per kilogram per hour/fentanyl drips at 100 was an hour for sedation/analgesia while intubated Goal of RASS -2 Daily sedation vacation when clinically indicated Respiratory: Acute respiratory failure secondary to community acquired pneumonia/acute diastolic heart failure -PRVC 24/tidal volume around 550, I time 1.2, PEEP 5, FiO2 60% -Duo nebs every 6 hours and as needed -Ventilator bundle -Follow-up chest x-ray in a.m. revealed stable left lower lobe infiltrate repeat in a.m. -See infectious disease for antibiotics Cardiovascular: NSTEMI Angina/unstable Acute on chronic systolic and diastolic congestive heart failure Cardiomegaly Previous CABG vessels with Dr. Perrin History NSTEMI 2008 - refused cardiac catheterization CAD Moderate to severe mitral regurgitation/moderate TR Hypertension Left bundle branch block Atrial fibrillation Lactic acidosis - Currently on Jose-Synephrine at 220 g a minute/norepinephrine at 10 mcg/kg per minute, vasopressin 0.04 units/min and epinephrine drip 15 g a minute to maintain MEP greater than 65 Stress dose Solu-Cortef 100 mg IV every 8 hours. Wean over the next week -Cardiology consult- Dr. Rosado. No indications for cardiac catheterization at this time per report Dr. Rosado discussed with family. Recommended palliative care/hospice as with his conversation with this patient, he did not want these sorts aggressive care is to be performed -Continue monitoring serial troponins initial 4.09. Trending upward peaked at 20 currently around 20 -ECHO 01/02/16 EF 4045 percent grade 1 diastolic dysfunction. Diffuse hypokinesis. MV-moderate to severe regurgitation,TV-mild to moderate regurgitation.PASP 55mmHG Repeat echo this hospitalization revealed EF 30-35%. Severe MR. CAL 50 mmHg -EKG SR, LBBB , unchanged per Dr. Aggarwal system sales consultant disciplinary hearing officer as discussed with Dr. Alvarado, the patient is not a candidate for cardiac catheterization -Currently in atrial fibrillation. Cardizem drip for rate control less than 120 Heparin drip discontinued secondary to bleeding -Continue ASA 81 mg daily, Plavix 75 mg daily - Resume atorvastatin 20 mg daily for dyslipidemia. LFTs within normal limits. - Patient is on enalapril 20 mg daily. This is held in light of acute kidney injury. - Converting metoprolol 25 mg twice a day IV. See above. Currently holding Norvasc 5 mg per day light of hypotension along with Imdur 30 mg by mouth daily - Currently holding Lasix 40 mg by mouth daily. Currently off hemodialysis. 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 -Vas-Cath placement 09/19/15-emergent hemodialysis larry been completed. -2 L on 09/19 and 800 cc on 09/20. - Nephrology consulted. Will reassess for hemodialysis today - Avoid nephrotoxic drugs. Specifically sp inhibitors have been held -- Strict I/Os - Follow BMP in a.m. -Renal ultrasound 09/19 revealed right kidney with medical renal disease/absent left kidney. Negative urine eosinophils. FEN Hyperkalemia Hyponatremia Hyperphosphatemia Receiving potassium hyperkalemia protocol including D50/insulin/calcium/ bicarbonate and Kayexalate Recheck potassium in 3 hours PhosLo 667 mg 3 times a day for hyperphosphatemia. Recheck in a.m. Replace electrolytes as clinically indicated. Currently on free water with 3 ampules sodium bicarbonate 150 cc an hour. 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 Nepro currently at goal 55 cc an hour Protonix for GI prophylaxis Colace/Senokot twice a day and daily MiraLAX for bowel regimen History of bladder cancer 3 [place] for accurate I's and O's in a critically ill patient. Heme: Normocytic anemia Thrombocytopenia Leukocytosis Patient is on iron sulfate 325 mg by mouth daily. This is been resumed. Follow-up CBC in AM. ID: Likely community-acquired pneumonia Day 5 Zosyn/Zithromax Pertinent cultures 1/5 - blood cultures 2 -no growth 1/5 - urine culture -no growth 1/5 - sputum -no growth Influenza negative Endocrine: Hypothyroidism Diabetes mellitus - Currently on Levoxyl 50 mg by mouth daily. -Glucose monitoring every 6 hours per ICU protocol -- SSI MSK: Osteoarthritis/osteoporosis Continue vitamin D 3 1000 units by mouth daily. PT evaluate and treat Access -Left femoral hemodialysis catheter day #2 - Left IJ CVL day #3 - Right femoral arterial line day #2 Prophylaxis: GI - Protonix DVT - SCD/heparin subcutaneous Critical Care: The total critical care time was 35 minutes. Time to perform other separately billable procedures was not included in the critical care time. Discuss with family at length yesterday. Altering code. Intubation only. Patient is actively dying. Very poor prognosis. Palliative care consulted. No hemodialysis indicated. Denny Medellin MD Sep 23, 2016 14:30
== END 2016-09-23 16:49 | disposition expired | DRG 208 ==
LOC: NEPE 23:17 → NEDA 09-19 01:08 → N03B 09-19 03:19
PROVIDERS: ADMIT Anesthesiology; ATTEND Anesthesiology
PROC: 5A1D60Z (ICD-10-PCS; 2016-09-19)
PROC: 02H633Z Insertion of Infusion Device into Right Atrium, Percutaneous Approach (ICD-10-PCS; 2016-09-19)
PROC: 5A09457 Assistance with Respiratory Ventilation, 24-96 Consecutive Hours, Continuous Positive Airway Pressure (ICD-10-PCS; 2016-09-19)
PROC: 5A1945Z Respiratory Ventilation, 24-96 Consecutive Hours (ICD-10-PCS; principal; 2016-09-20)
PROC: 0BH17EZ Insertion of Endotracheal Airway into Trachea, Via Natural or Artificial Opening (ICD-10-PCS; 2016-09-20)
PROC: 02HV33Z Insertion of Infusion Device into Superior Vena Cava, Percutaneous Approach (ICD-10-PCS; 2016-09-20)
PROC: 04HY32Z Insertion of Monitoring Device into Lower Artery, Percutaneous Approach (ICD-10-PCS; 2016-09-21)
PROC: 06HN33Z Insertion of Infusion Device into Left Femoral Vein, Percutaneous Approach (ICD-10-PCS; 2016-09-21)
DX: J96.01 Acute respiratory failure with hypoxia (principal); I21.4 Non-ST elevation (NSTEMI) myocardial infarction; K72.00 Acute and subacute hepatic failure without coma; I50.43 Acute on chronic combined systolic (congestive) and diastolic (congestive) heart failure; J18.9 Pneumonia, unspecified organism; N18.4 Chronic kidney disease, stage 4 (severe); N17.9 Acute kidney failure, unspecified; E11.22 Type 2 diabetes mellitus with diabetic chronic kidney disease; D69.6 Thrombocytopenia, unspecified; I13.0 Hypertensive heart and chronic kidney disease with heart failure and stage 1 through stage 4 chronic kidney disease, or unspecified chronic kidney disease; H33.22 Serous retinal detachment, left eye; E87.1 Hypo-osmolality and hyponatremia; I25.110 Atherosclerotic heart disease of native coronary artery with unstable angina pectoris; I27.2 Other secondary pulmonary hypertension; D64.9 Anemia, unspecified; H54.42 Blindness, left eye, normal vision right eye; I44.7 Left bundle-branch block, unspecified; E03.9 Hypothyroidism, unspecified; M19.90 Unspecified osteoarthritis, unspecified site; E78.00 Pure hypercholesterolemia, unspecified; R00.0 Tachycardia, unspecified; E78.5 Hyperlipidemia, unspecified; I25.5 Ischemic cardiomyopathy; I48.2 Chronic atrial fibrillation; M81.0 Age-related osteoporosis without current pathological fracture; I08.1 Rheumatic disorders of both mitral and tricuspid valves; Z51.5 Encounter for palliative care; E87.5 Hyperkalemia; E83.39 Other disorders of phosphorus metabolism; R74.0 Nonspecific elevation of levels of transaminase and lactic acid dehydrogenase [LDH]; I25.2 Old myocardial infarction; Z90.5 Acquired absence of kidney; Z87.442 Personal history of urinary calculi; Z79.82 Long term (current) use of aspirin; Z86.73 Personal history of transient ischemic attack (TIA), and cerebral infarction without residual deficits; Z85.528 Personal history of other malignant neoplasm of kidney; Z87.891 Personal history of nicotine dependence; Z95.1 Presence of aortocoronary bypass graft
CPT/HCPCS: 31500; 36556; 36600; 71010; 76775; 76937; 80048; 80053; 80069; 80074; 80076; 81001; 82550; 82552; 82570; 82805; 83036; 83605; 83690; 83735; 83880; 84100; 84132; 84155; 84300; 84443; 84484; 85007; 85014; 85018; 85025; 85027; 85384; 85610; 85730; 87040; 87070; 87205; 87641; 90935; 93005; 93306; 94002; 94003; 94150; 94640; 94664; 96374; 96375; 99292; C9113; J0171; J0456; J0610; J1160; J1580; J1644; J1720; J1815; J1940; J2370; J2543; J3010; J3475; J7030; J7040; J7050; J7060; P9047